=== PATIENT | male | born 1945 | race Caucasian/White ===

== ENCOUNTER 2016-11-14 10:30 | Inpatient (IN) | payer MEDICARE ==
[2016-11-14] VITALS (45 sets, daily range): BP systolic 113–163; BP diastolic 58–114; PULSE 90–121; RESP 24–64; TEMP 98.7; O2SAT 46–99; Ht 170.2 cm; Wt 129.4 kg
[~2016-11-14] VITALS: Ht 170.2 cm; Wt 129.4 kg
[~2016-11-14 10:30] MED LIST: ASPI81TA2 PO; BUME1TAB17 PO; CLON0.3T PO; GABA-336 PO; HYDR-4246 PO; HYDR25TA PO; ISOS30TA6 PO; METO-277 PO; MINO10TA2 PO; NITR0.4T PO; OMEP40CA52 PO; POTA-81 PO; SIMV20TA6 PO
--- NOTE | 2016-11-14 10:31 | NUR ---
PROVIDER/RT DR. MARTÍNEZ PRESENT ON ARRIVAL FOR EXAM. RT AT BEDSIDE ON ARRIVAL.
--- OUTSIDE RECORDS SUMMARY | 2016-11-14 10:33 | XMS REPORT | Referral Summary ---
Author Author [facility] [employer] Organization [facility] [employer] Address Unknown Phone Unavailable Care Team Providers Care Neurology Physician Assistant Name Role Phone Bryn Tavarez Primary Care Physician Unavailable Encounter [facility] [id number] Date(s): 10/21/16 - 10/21/16 [facility] [address], [place] [address] Discharge Diagnosis: CHF (congestive heart failure) Discharge Diagnosis: Morbid obesity Discharge Diagnosis: Hypertension Discharge Diagnosis: Obstructive sleep apnea Discharge Disposition: 01-Home or Self Care Attending Physician: Cb Lynch MD Admitting Physician: Cb Lynch MD Referring Physician: Víctor Farias MD Vital Signs Most recent to 1 oldest [Reference Range]: Peripheral Pulse 84 bpm Rate [60-100 bpm] (10/21/16 1:39 PM) Blood Pressure 142/76 mmHg [90-140/60-90 mmHg] *HI* (10/21/16 1:39 PM) SpO2 93 % (10/21/16 1:39 PM) Problem List Condition Effective Dates Status Health Status Informant Acute Active pain(Confirmed) Anginal Active patient pain(Confirmed) Coronary heart Active disease(Confirmed) Debility(Confirmed) Active At risk for Active injury(Confirmed)1 At risk of pressure Active sore(Confirmed) Stroke(Confirmed) Active patient Chronic Active headaches(Confirmed) CHF (congestive Active heart failure)(Confirmed) Heart Active patient disease(Confirmed) Hypertension(Confirm Active ed) Impaired skin Active integrity(Confirmed) 2 Morbid Active obesity(Confirmed) OR (myocardial Active patient infarction)(Confirme d) Obstructive sleep Active apnea(Confirmed) Situational Active depression(Confirmed ) 1Problem added automatically by system based on initiation of Risk for Injury Plan of Care 2Problem added automatically by system based on initiation of Impaired Skin Integrity Plan of Care Allergies, Adverse Reactions, Alerts No Known Medication Allergies Medications aspirin 81 mg, Oral, Daily, 0 Refill(s) Start Date: 03/06/15 Status: Ordered atorvastatin 40 mg oral tablet 40 mg 1 tabs, Oral, Daily, # 90 tabs, 4 Refill(s), Pharmacy: [facility], 1 tabs Oral Daily Start Date: 09/16/16 Status: Ordered Bumex 1 mg 1 tabs, Oral, Daily, 0 Refill(s) Start Date: 03/15/15 Status: Ordered cloNIDine 0.3 mg oral tablet 0.3 mg 1 tabs, Oral, BID, # 180 tabs, 0 Refill(s) Start Date: 07/15/16 Status: Ordered Home Oxygen (DME) DME Item O2 @ 2LPM for ambulation Portable Oxygen per patient choice Modality assessement Titrate SaO2 > 90%. DX J84.9 JEN: 99, See Instructions, # 1 Each , 0 Refill(s), Supply Start Date: 09/19/16 Status: Ordered hydrochlorothiazide 25 mg oral tablet 25 mg 1 tabs, Oral, Daily, 0 Refill(s) Start Date: 01/17/16 Status: Ordered isosorbide mononitrate 60 mg oral tablet, extended release 60 mg 1 tabs, Oral, qAM, 0 Refill(s) Start Date: 01/17/16 Status: Ordered losartan 50 mg oral tablet 50 mg 1 tabs, Oral, Daily, # 90 tabs, 3 Refill(s), Pharmacy: [facility], 1 tabs Oral Daily Start Date: 09/16/16 Status: Ordered metoprolol tartrate 50 mg oral tablet Oral, BID, 0 Refill(s) Start Date: 03/15/15 Status: Ordered minoxidil 10 mg oral tablet one half tab, Oral, Daily, # 30 tabs, 3 Refill(s), Pharmacy: [facility], one half tab Oral Daily Start Date: 09/16/16 Status: Ordered Miscellaneous DME DME Item Nocturnal oxygen at 2 LPM via nasal cannula. Overnight oximetry on 2 LPM. JEN: 99 DX: R09.02, See Instructions, # 1 Each, 0 Refill(s), Supply Start Date: 07/31/16 Status: Ordered Nitrostat 0.4 mg, SubLingual, q5min, as needed for chest pain, not to exceed 3 doses/15 min--if pain persists, seek medical attention, 0 Refill(s) Start Date: 03/06/15 Status: Ordered omeprazole 40 mg, Oral, Daily, 0 Refill(s) Start Date: 03/06/15 Status: Ordered potassium chloride 20 mEq oral tablet, extended release 20 mEq 1 tabs, Oral, Daily, 0 Refill(s) Start Date: 03/15/15 Status: Ordered traMADol 100 mg, Oral, QID, as needed for pain, 50-100 mg as needed, 0 Refill(s) Start Date: 03/06/15 Status: Ordered Results No data available for this section Immunizations Given and Recorded Vaccine Date Status Refusal Reason influenza virus vaccine, inactivated 08/12/16 Given influenza virus vaccine, live 06/08/13 Given influenza virus vaccine, live 06/05/12 Given influenza virus vaccine, live 05/15/12 Given influenza virus vaccine, live 05/01/11 Given influenza virus vaccine, live 06/14/10 Given pneumococcal 13-valent conjugate vaccine 08/12/16 Given Procedures Procedure Date Related Diagnosis Body Site Bypass Graft Coronary Artery1 03/10/15 [place] Vein (Left)2 03/10/15 1auto-populated from documented surgical case 2auto-populated from documented surgical case Social History Social History Type Response Smoking Status Never smoker Assessment and Plan Extracted from: Title: Office Visit Note Author: Cb Lynch MD Date: 10/21/16 Assessment/Plan 1.Obstructive sleep apnea Obstructive Sleep Apnea - -The pathophysiology of obstructive sleep apnea was discussed in detail. I explained that the treatment of choice for mild, moderate, and severe MAGY is the positive pressure device, and revealed about the untreated consequences. We also briefly discussed other treatment options including surgery, hypoglossal nerve stimulator, and dental appliances.The patient was advised to avoid driving and other hazardous activities if feeling tired, drowsy or otherwise impaired. - Current symptoms/Signs/PMH daytime sleepiness, snoring, witnessed apneas, BMI >35,Age >50, Neck size >40cm, male gender, hypertension, STOP BANG score: 8, hx HTN, CHF, CVA - We will obtain a SPLIT NIGHT sleep study. Study to begin on 2Liter Oxygen and wean and add oxygen per protocol to maintain oxygen >88%. Split if AHI >10, start with CPAP if central sleep apnea to switch to BIPAP ST with back up of 10 -If patient is Dx w/ MAGY patient would be interested PAP THERAPY Patient will benotified about results of sleep study via PHONE CALL 2.Hypertension The pathophysiology of HTN in relation to MAGY discussed in detail with patient. We also discussed increased risk of MAGY in regard to CVA, CHF,and OR. 3.Morbid obesity counseled on the importance of proper diet and routine exercise. A decrease in weight and BMI may lessen the severity of sleep apnea. If there is a 10% or more change in weight status, this may require PAP machine pressure adjustment. We discussed improving nutrition and making exercise plans. 4.CHF (congestive heart failure) discussed CHF and hx of CVA in regard to central sleep apnea risk.
--- OUTSIDE RECORDS SUMMARY | 2016-11-14 10:33 | XMS REPORT | Referral Summary ---
Author Author [facility] Organization [facility] Address Unknown Phone Unavailable Care Team Providers Care Manager Advanced Name Role Phone Bryn Tavarez Primary Care Physician Unavailable Encounter [facility] [id number] Date(s): 09/19/16 - 09/19/16 [facility] [address] [place], [place] [address] Discharge Diagnosis: Central sleep apnea Discharge Diagnosis: Coronary heart disease Discharge Diagnosis: CHF (congestive heart failure) Discharge Diagnosis: Hypertension Discharge Diagnosis: Hypersensitivity pneumonitis Discharge Diagnosis: Hypoxemia Discharge Disposition: -Home or Self Care Attending Physician: Víctor Farias MD Admitting Physician: Víctor aFrias MD Referring Physician: Erik Tavarez MD Vital Signs Most recent to 1 oldest [Reference Range]: Temperature Oral 36.8 degC [35.8-37.3 degC] (09/19/16 11:27 AM) Peripheral Pulse 78 bpm Rate [60-100 bpm] (09/19/16 11:27 AM) Respiratory Rate 16 br/min [14-20 br/min] (09/19/16 11:27 AM) Blood Pressure 122/82 mmHg [90-140/60-90 mmHg] (09/19/16 11:27 AM) SpO2 93 % (09/19/16 11:27 AM) Problem List Condition Effective Dates Status Health Status Informant Acute Active pain(Confirmed) Anginal Active patient pain(Confirmed) Coronary heart Active disease(Confirmed) Debility(Confirmed) Active At risk for Active injury(Confirmed)1 At risk of pressure Active sore(Confirmed) Central sleep Active apnea(Confirmed) Stroke(Confirmed) Active patient Chronic Active headaches(Confirmed) CHF (congestive Active patient heart failure)(Confirmed) Severe essential Active hypertension(Confirm ed) Heart Active patient disease(Confirmed) Hypertension(Confirm Active patient ed) Impaired skin Active integrity(Confirmed) 2 Morbid Active patient obesity(Confirmed) [place] (myocardial Active patient infarction)(Confirme d) Situational Active depression(Confirmed ) 1Problem added automatically [...] Daily, # 90 tabs, 4 Refill(s), Pharmacy: [facility], 1 tabs Oral Daily Start Date: 09/16/16 [...] Daily, # 90 tabs, 3 Refill(s), Pharmacy: [facility], 1 tabs Oral Daily Start Date: 09/16/16 Status: Ordered metoprolol tartrate 50 mg oral tablet Oral, BID, 0 Refill(s) Start Date: 03/15/15 Status: Ordered minoxidil 10 mg oral tablet one half tab, Oral, Daily, # 30 tabs, 3 Refill(s), Pharmacy: [facility], one half tab Oral Daily Start Date: [...] 0 Refill(s) Start Date: 03/15/15 Status: Ordered predniSONE 20 mg oral tablet 40 mg 2 tabs, Oral, Daily, X 30 days, # 60 tabs, 1 Refill(s), Pharmacy: [facility] [place], 2 tabs Oral Daily,x30 days Start Date: 07/31/16 Stop Date: 09/29/16 Status: Ordered traMADol 100 mg, Oral, QID, [...] Body Site Bypass Graft Coronary Artery1 03/10/15 [place] Vein (Left)2 03/10/15 1auto-populated from documented surgical case 2auto-populated from documented surgical case Social History Social History Type Response Smoking Status Never smoker Assessment and Plan Extracted from: Title: Office Visit Note Author: Víctor Farias MD Date: 09/19/16 Assessment/Plan 1.Coronary heart disease 2.Central sleep apnea 3.Hypertension 4.CHF (congestive heart failure) 5.Hypersensitivity pneumonitis 6.Hypoxemia I've recommended supplemental oxygen with activity at this time. He does have evidence of significant desaturation with activity presently. He also reports that when he has used oxygenhe feels less short of breathand he has fewer problems with chest pain. I also discussed with him at lengthhis sleep apnea. I feel this plays a major rolein his shortness of breath and fatigue. Without adequate treatmentof his sleep apnea he will continue to have significant problems with exertional dyspnea and fatigue. He is now willing to undergoevaluation by sleep medicine. An appointment will be scheduledas soon as possible.
--- OUTSIDE RECORDS SUMMARY | 2016-11-14 10:33 | XMS REPORT | CCD ---
Author [facility] Organization Unknown Address [address], [place] [id number] Phone 0 Care Team Providers Care Micrographics Services Supervisor Name Role Phone Lucero [place] Attending Physician 0 Vital Signs Unknown or Not Available. Allergies Unknown or Not Available. Procedures Unknown or Not Available. History of Immunizations Immunization Code Date influenza, split (incl. purified surface antigen) 15 08/06/2005 Problems Unknown or Not Available. Results BASIC METABOLIC - Collect Date/Time: 03/22/2015 12:35 Test Name Code Test Result Test Units Test Ref Range GLUCOSE 97 mg/dL L=70 H=110 BUN 19 mg/dL L=7 H=18 CREATININE 1.10 mg/ dL L=0.60 H=1.30 AGE 70 YEARS GFR 70.5 SODIUM 135 mmol/L L=136 H=145 POTASSIUM 4.2 mmol/ L L=3.5 H=5.1 CHLORIDE 98 mmol/L L=98 H=107 CO2 27 mmol/L L=21 H=32 CALCIUM 9.2 mg/dL L=8.5 H=10.1 Active Medications Unknown or Not Available. Medications Administered During Visit Unknown or Not Available. Encounters Encounter Diagnosis Diagnosis Code Start Date HYPERTENSION NOS 4019 03/22/2015 Social History Smoking Status Code Start Date End Date Unknown if ever smoked [id number] Patient Decision Aids Unknown or Not Available. Discharge Instructions [facility] on 03/22/2015 with a principal diagnosis of HYPERTENSION NOS. You were discharged from [facility] on 03/31/2015. Should you have any questions prior to discharge, please contact a member of your healthcare team. If you have left the hospital and have any questions, please contact your primary care physician. Chief Complaint and Reason For Visit Unknown or Not Available. Function Status Unknown or Not Available. Plan of Care Unknown or Not Available. Referral/Transition of Care Unknown or Not Available.
--- OUTSIDE RECORDS SUMMARY | 2016-11-14 10:33 | XMS REPORT | Referral Summary ---
Author Author [facility] Organization [facility] Address Unknown Phone Unavailable Care Team Providers Care Television Station Manager Name Role Phone Erik Tavarez Primary Care Physician Unavailable Encounter [facility] [id number] Date(s): 06/14/16 - 06/14/16 [facility] [address] [place], [place] [address] Discharge Diagnosis: SOB (shortness of breath) Discharge Disposition: 01-Home or Self Care Attending Physician: Víctor Farias MD Admitting Physician: Víctor Farias MD Vital Signs No data available for this section Problem List Condition Effective Dates Status Health Status Informant Acute Active pain(Confirmed) Anginal Active patient pain(Confirmed) At risk for Active injury(Confirmed)1 At risk of pressure Active sore(Confirmed) Stroke(Confirmed) Active patient CHF (congestive Active patient heart failure)(Confirmed) Heart Active patient disease(Confirmed) Hypertension(Confirm Active patient ed) Impaired skin Active integrity(Confirmed) 2 Morbid Active patient obesity(Confirmed) [place] (myocardial Active patient infarction)(Confirme d) 1Problem added automatically by system based on initiation of Risk for Injury Plan of Care 2Problem added automatically by system based on initiation of Impaired Skin Integrity Plan of Care Allergies, Adverse Reactions, Alerts No Known Medication Allergies Medications Advil 400 mg, Oral, q6hr, as needed for arthritis, 0 Refill(s) Start Date: 05/22/16 Status: Ordered aspirin 81 mg, Oral, Daily, 0 Refill(s) Start Date: 03/06/15 Status: Ordered Bumex 1 mg 1 tabs, Oral, Daily, 0 Refill(s) Start Date: 03/15/15 Status: Ordered cloNIDine 0.1 mg oral tablet 0.2 mg 2 tabs, Oral, BID, 0 Refill(s) Start Date: 03/15/15 Status: Ordered hydrochlorothiazide 25 mg oral tablet 25 mg 1 tabs, Oral, Daily, 0 Refill(s) Start Date: 01/17/16 Status: Ordered isosorbide mononitrate 60 mg oral tablet, extended release 60 mg 1 tabs, Oral, qAM, 0 Refill(s) Start Date: 01/17/16 Status: Ordered metoprolol tartrate 50 mg oral tablet Oral, BID, 0 Refill(s) Start Date: 03/15/15 Status: Ordered minoxidil 10 mg oral tablet 10 mg 1 tabs, Oral, Daily, # 30 tabs, 0 Refill(s) Start Date: 01/17/16 Status: Ordered Nitrostat 0.4 mg, SubLingual, q5min, as needed for chest pain, not to exceed 3 doses/15 min--if pain persists, seek medical attention, 0 Refill(s) Start Date: 03/06/15 Status: Ordered omeprazole 40 mg, Oral, Daily, 0 Refill(s) Start Date: 03/06/15 Status: Ordered potassium chloride 20 mEq oral tablet, extended release 20 mEq 1 tabs, Oral, Daily, 0 Refill(s) Start Date: 03/15/15 Status: Ordered simvastatin 20 mg oral tablet 20 mg 1 tabs, Oral, Bedtime (once a day), # 30 tabs, 0 Refill(s) Start Date: 01/17/16 Status: Ordered traMADol 100 mg, Oral, QID, as needed for pain, 50-100 mg as needed, 0 Refill(s) Start Date: 03/06/15 Status: Ordered Results No data available for this section Immunizations Vaccine Date Refusal Reason influenza virus vaccine, live 06/08/13 influenza virus vaccine, live 06/05/12 influenza virus vaccine, live 05/15/12 influenza virus vaccine, live 05/01/11 influenza virus vaccine, live 06/14/10 Procedures Procedure Date Related Diagnosis Body Site Bypass Graft Coronary Artery1 03/10/15 [place] Vein (Left)2 03/10/15 1auto-populated from documented surgical case 2auto-populated from documented surgical case Social History Social History Type Response Smoking Status Never smoker Assessment and Plan No data available for this section
--- OUTSIDE RECORDS SUMMARY | 2016-11-14 10:33 | XMS REPORT | Referral Summary ---
Author Author [facility] Organization [facility] Address Unknown Phone Unavailable Care Team Providers Care Traveling Auditor Name Role Phone Erik Tavarez Primary Care Physician Unavailable [facility]counter [facility] [id number] Date(s): 08/12/16 - 08/12/16 [facility] [address] [place], [place] [address] Discharge Diagnosis: Heart disease Discharge Diagnosis: Morbid obesity Discharge Diagnosis: Nocturnal hypoxemia Discharge Diagnosis: Hypersensitivity pneumonitis Discharge Diagnosis: CHF (congestive heart failure) Discharge Disposition: 01-Home or Self Care Attending Physician: Víctor Farias MD Admitting Physician: Víctor Farias MD Vital Signs Most recent to 1 oldest [Reference Range]: Peripheral Pulse 68 bpm Rate [60-100 bpm] (08/12/16 10:17 AM) Respiratory Rate 18 br/min [14-20 br/min] (08/12/16 10:17 AM) Blood Pressure 172/100 mmHg [90-140/60-90 mmHg] *HI* (08/12/16 10:17 AM) SpO2 96 % (08/12/16 10:17 AM) Problem List Condition Effective Dates Status [...] 0 Refill(s) Start Date: 07/15/16 Status: Ordered hydrochlorothiazide 25 mg oral tablet [...] 0 Refill(s) Start Date: 01/17/16 Status: Ordered Miscellaneous DME DME Item Nocturnal [...] 60 tabs, 1 Refill(s), Pharmacy: [facility] [place], 2 tabs Oral Daily,x30 days Start Date: 07/31/16 Stop Date: 09/29/16 Status: Ordered simvastatin 20 mg oral tablet [...] Body Site Bypass Graft Coronary Artery1 03/10/15 [place] Vein (Left)2 03/10/15 1auto-populated from documented surgical case 2auto-populated from documented surgical case Social History Social History Type Response Smoking Status Never smoker Assessment and Plan Extracted from: Title: Office Visit Note Author: Víctor Farias MD Date: 08/12/16 Assessment/Plan 1.Heart disease 2.CHF (congestive heart failure) 3.Hypersensitivity pneumonitis The patient has gotten rid of his chickens. We will begin to taper prednisone. He's to take 40 mg daily through August, 30 mg daily in September , and dropped to 20 mg daily in October, 4.Morbid obesity 5.Nocturnal hypoxemia I've recommended patient continue supplemental oxygen at night. A repeat overnight oximetry on supplemental oxygenis to be done this week. Need for vaccination The patient received both a flu shot and Prevnar 13 today. follow-up evaluation is planned pulmonary medicine clinic in 3 months or sooner if need be.
--- OUTSIDE RECORDS SUMMARY | 2016-11-14 10:33 | XMS REPORT | Continuity of Care Document ---
Author Author [facility] Address Unknown Phone Unavailable Care Team Providers Care Ornamental Ironworker Name Role Phone Sammy De Anda PP Unavailable Payers Payer name Insurance type Covered democrat ID Authorization(s) Unknown Problems Condition Effective Dates (start - stop) Clinical Status Pre-operative examination, unspecified - *Acute Pain in joint involving ankle and foot - *Acute Hypertension, Unspecified - *Chronic Chronic ischemic heart disease, unspecified - *Chronic Abnormal weight gain - *Acute OTHER ABNORMAL GLUCOSE - *Acute Pain in joint involving shoulder region - *Acute Cough - *Acute Health examination of defined subpopulations - *Routine Health examination of defined subpopulations - *Routine Right foot pain - *Acute Hypopotassemia - *Chronic Pain in or around eye - *Acute Esophageal reflux - *Chronic Headache - *Acute Routine general medical examination at a health care facility - *Routine Osteoarthrosis, unspecified whether generalized or localized, involving ankle and foot - *Acute Hypertension, Unspecified - *Chronic Chronic ischemic heart disease, unspecified - Chronic Benign essential hypertension - *Chronic Hypopotassemia - *Chronic Anxiety state, unspecified - *Acute Hypoxemia - *Acute - Shortness of breath - *Acute Benign essential hypertension - *Chronic Unspecified chest pain - *Acute NEED FOR PROPHYLACTIC VACCINATION AND INOCULATION, INFLUENZA - * Acute Family History Family Member Diagnosis Age At Onset Status Unknown Social History Social History Element Description Quantity Unknown Allergies, Adverse Reactions, Alerts Substance Reaction Severity Status LATEX Rash Unknown Medications Medication Instructions Dosage Effective Dates (start - stop) Status Aspir-81 81 mg tablet,delayed release take 1 tablet (81MG) by oral route every day 81 MG - Active tramadol 50 mg tablet take 1 tablet (50MG) by oral route every 6 hours as needed 50 MG - Active apply by Topical route 4 to 5 times every day - Active hydrochlorothiazide 50 mg tablet take 1 tablet (50MG) by ORAL route every day 50 MG - Active clonidine 0.3 mg tablet take 1 tablet BID - Active nitroglycerin 0.[address] 1 tablet (0.4MG) by Sublingual route at the 1st sign of attack; may repeat every 5 min until relief; if pain persists after 3 tablets in 15 min, prompt medical attention is recommended 0.4 MG - Active Revatio 20 mg tablet take 1- 3 tabs po prn - Active Zocor 20 mg tablet take 1 tablet (20MG) by ORAL route every day in the evening 20 MG - Active Toprol XL 50 mg tablet,extended release take 1 tablet (50MG) by oral route every day 50 MG - Active minoxidil 10 mg tablet take 1.5 tablets q d 10 MG - Active Nexium 40 mg capsule,delayed release take 1 capsule daily - Active Immunizations Vaccine Date Status Comments Fluzone HD 0.5 completed flu (split) (3 yrs or older) completed Flu (split) (3 yrs or older) completed Flu (split) (3 yrs or older) completed flu (split) (3 yrs or older) completed - Note: 65 and over Flu vaccine Results Test Name Date and Time Measure Units Reference Range Abnormal Flag Comments Unknown Vital Signs Date / Time: Height Weight Pulse Rate Blood Pressure Temperature /09:17:00 274.00 lbs 76 /min 132/80 mm[Hg] Procedures Procedure Date Unknown Encounters Encounter Location Date Patient Visit [facility] [place] Patient Visit [facility] [place] Patient Visit [facility] [place] Patient Visit [facility] [place] Patient Visit [facility] [place] Patient Visit [facility] [place] Patient Visit [facility] [place] Patient Visit [facility] [place] Patient Visit [facility] [place] Patient Visit [facility] [place] Patient Visit [facility] [place] Patient Visit [facility] [place] Patient Visit [facility] [place] Patient [facility] [place] Patient Visit [facility] [place] Patient Visit [facility] [place] Patient Visit [facility] [place] Patient [facility] [place] Patient Visit [facility] [place] Patient Visit [facility] [place] Patient Visit [facility] [place] Patient Visit [facility] [place] Advance Directives Directive Effective Date Unknown
--- OUTSIDE RECORDS SUMMARY | 2016-11-14 10:33 | XMS REPORT | Referral Summary ---
Author Author [facility] Organization [facility] Address Unknown Phone Unavailable Encounter [facility] [id number] Date(s): 03/06/15 - 03/15/15 [facility] [address] [place] [address] Discharge Diagnosis: Unstable angina Discharge Diagnosis: S/P CABG x 3 Final: CORONARY ATHEROSCLEROSIS OF [place] CORONARY ARTERY Final: INTERMEDIATE CORONARY SYNDROME Final: Body Mass Index 40.0-44.9, Adult Final: PULMONARY COLLAPSE Final: ACUTE POSTHEMORRHAGIC ANEMIA Final: RETENTION OF URINE, UNSPECIFIED Final: OBESITY, UNSPECIFIED Final: CONGESTIVE HEART FAILURE, UNSPECIFIED Final: ATRIAL FIBRILLATION Final: OTHER LATE EFFECTS OF CEREBROVASCULAR DISEASE Final: OTHER AND UNSPECIFIED HYPERLIPIDEMIA Final: UNSPECIFIED ESSENTIAL HYPERTENSION Final: Other chronic pain Final: BACKACHE, UNSPECIFIED Final: OLD MYOCARDIAL INFARCTION Final: KNEE JOINT REPLACED BY OTHER MEANS Final: PERCUTANEOUS TRANSLUMINAL CORONARY ANGIOPLASTY, POSTSURGICAL STATUS Discharge Disposition: -Home with Home Health Care Attending Physician: Marvin Castillo MD Admitting Physician: Marvin Castillo MD Vital Signs Most recent to 1 oldest [Reference Range]: Temperature Oral 36.6 degC [35.8-37.3 degC] (03/15/15 12:59 PM) Temperature Temporal 36.2 degC Artery [36.3-37.8 *LOW* degC] (03/14/15 8:00 PM) Peripheral Pulse 79 bpm Rate [60-100 bpm] (03/15/15 12:59 PM) Peripheral Pulse 122 bpm Rate with Activity (03/14/15 1:29 PM) Heart Rate Monitored 73 bpm [60-100 bpm] (03/15/15 12:56 PM) Respiratory Rate 20 br/min [14-20 br/min] (03/15/15 12:59 PM) Blood Pressure 90/58 mmHg [90-140/60-90 mmHg] (03/15/15 12:59 PM) Systolic Blood 122 mmHg Pressure with (03/14/15 1:29 PM) Activity Diastolic Blood 86 mmHg Pressure with (03/14/15 1:29 PM) Activity Mean Arterial 102 mmHg Pressure, Cuff (03/14/15 8:00 PM) Blood Pressure 156/81 mmHg Invasive *HI* [90-140/60-90 mmHg] (03/11/15 3:00 PM) Mean Arterial 102 mmHg Pressure, Invasive (03/11/15 3:00 PM) SpO2 96 % (03/15/15 12:59 PM) Problem List Condition Effective Dates Status Health Status Informant Acute Active pain(Confirmed) Anginal Active patient pain(Confirmed) At risk for Active injury(Confirmed)1 At risk of pressure Active sore(Confirmed) Stroke(Confirmed) Active patient CHF (congestive Active patient heart failure)(Confirmed) Heart Active patient disease(Confirmed) Hypertension(Confirm Active patient ed) Impaired skin Active integrity(Confirmed) 2 Morbid Active patient obesity(Confirmed) OR (myocardial Active patient infarction)(Confirme d) 1Problem added automatically by system based on initiation of Risk for Injury Plan of Care 2Problem added automatically by system based on initiation of Impaired Skin Integrity Plan of Care Allergies, Adverse Reactions, Alerts No Known Medication Allergies Medications acetaminophen 325 mg oral tablet 650 mg 2 tabs, Oral, q4hr, Pain Mild (1-3), 0 Refill(s) Start Date: 03/15/15 Status: Ordered amiodarone 200 mg oral tablet 200 mg 1 tabs, Oral, BID, 0 Refill(s) Start Date: 03/15/15 Status: Ordered aspirin 81 mg, Oral, Daily, 0 Refill(s) Start Date: 03/06/15 Status: Ordered atorvastatin 40 mg oral tablet 40 mg 1 tabs, Oral, Bedtime (once a day), 0 Refill(s) Start Date: 03/15/15 Status: Ordered Bumex 1 mg 1 tabs, Oral, Daily, 0 Refill(s) Start Date: 03/15/15 Status: Ordered cloNIDine 0.1 mg oral tablet 0.2 mg 2 tabs, Oral, BID, 0 Refill(s) Start Date: 03/15/15 Status: Ordered ibuprofen 800 mg oral tablet 800 mg 1 tabs, Oral, TID, as needed for pain, 1 Refill(s) Start Date: 06/13/14 Status: Ordered lisinopril 10 mg oral tablet 10 mg 1 tabs, Oral, Daily, 0 Refill(s) Start Date: 03/15/15 Status: Ordered metoprolol tartrate 50 mg oral tablet Oral, BID, 0 Refill(s) Start Date: 03/15/15 Status: Ordered Nitrostat 0.4 mg, SubLingual, q5min, as needed for chest pain, not to exceed 3 doses/15 min--if pain persists, seek medical attention, 0 Refill(s) Start Date: 03/06/15 Status: Ordered omeprazole 40 mg, Oral, Daily, 0 Refill(s) Start Date: 03/06/15 Status: Ordered oxyCODONE-acetaminophen 10 mg-325 mg oral tablet 1-2 tabs, Oral, q6hr, Pain Moderate (4-6), 0 Refill(s) Start Date: 03/15/15 Status: Ordered potassium chloride 20 mEq oral tablet, extended release 20 mEq 1 tabs, Oral, Daily, 0 Refill(s) Start Date: 03/15/15 Status: Ordered tamsulosin 0.4 mg oral capsule 0.4 mg 1 caps, Oral, Daily, 0 Refill(s) Start Date: 03/15/15 Status: Ordered traMADol 100 mg, Oral, QID, as needed for pain, 50-100 mg as needed, 0 Refill(s) Start Date: 03/06/15 Status: Ordered Results Blood Gases Most recent to 1 oldest [Reference Range]: pH [7.35-7.45] 7.35 (03/11/15 3:41 AM) PCO2 Arterial POC 43 mmHg [35-45 mmHg] (03/10/15 3:13 PM) pCO2 Art [35-45 45 mmHg mmHg] (03/11/15 3:41 AM) CO2 Totl Art [23-27 27 mEq/L mEq/L] (03/10/15 3:13 PM) Bicarbonate [22-26 24 mEq/L mEq/L] (03/11/15 3:41 AM) Bicarbonate Arterial 26 mEq/L POC [22-26 mEq/L] (03/10/15 3:13 PM) Base Excess Arterial 1 POC [0-2] (03/10/15 3:13 PM) Base Excess Art -2 [0-2] *LOW* (03/11/15 3:41 AM) O2 Sat Art 92.4 % [90.0-97.0 %] (03/11/15 3:41 AM) pO2 Art [80-100 70 mmHg mmHg] *LOW* (03/11/15 3:41 AM) O2 Saturation 99.0 % Arterial POC *HI* [90.0-97.0 %] (03/10/15 3:13 PM) pH Arterial POC 7.39 [7.35-7.45] (03/10/15 3:13 PM) PO2 Arterial POC 154 mmHg [80-100 mmHg] *HI* (03/10/15 3:13 PM) LPM Art 6.0 L/min (03/11/15 3:41 AM) O2 Panel Nasal Cannula (03/11/15 3:41 AM) Vent Mode AC (03/10/15 5:20 PM) Set Vt 600 mL (03/10/15 5:20 PM) Set Rate 12 br/min (03/10/15 5:20 PM) FiO2 Art [0-100] 50 (03/10/15 11:50 PM) PEEP 5.0 (03/10/15 11:50 PM) Inspiratory Time Art 0.90 (03/10/15 5:20 PM) Tubing Compensation 100 % (03/10/15 11:50 PM) Total Rate 14 br/min (03/10/15 11:50 PM) Spon Vt 665 mL (03/10/15 11:50 PM) Spec Site A-Line (03/11/15 3:41 AM) pH Venous POC 7.38 [7.32-7.42] (03/10/15 4:12 PM) PCO2 Venous POC 43 mmHg [41-51 mmHg] (03/10/15 4:12 PM) PO2 Venous POC 40 mmHg [80-100 mmHg] *LLOW* (03/10/15 4:12 PM) Total CO2 Venous POC 27 mEq/L [25-29 mEq/L] (03/10/15 4:12 PM) Bicarbonate Venous 25 mEq/L POC [24-28 mEq/L] (03/10/15 4:12 PM) Base Excess Venous 0 POC [0-4] (03/10/15 4:12 PM) O2 Saturation Venous 74.0 % POC [90.0-97.0 %] *LOW* (03/10/15 4:12 PM) Hematology Most recent to 1 oldest [Reference Range]: WBC [4.8-10.8 6.1 10*3/uL 10*3/uL] (03/15/15 5:19 AM) RBC [4.60-6.20 3.32 10*6/uL 10*6/uL] *LOW* (03/15/15 5:19 AM) Hgb [14.0-18.0 10.1 gm/dL gm/dL] *LOW* (03/15/15 5:19 AM) Hct [42.0-52.0 %] 30.7 % *LOW* (03/15/15 5:19 AM) MCV [82.0-99.0 fL] 92.5 fL (03/15/15 5:19 AM) MCH [27.0-32.0 pg] 30.4 pg (03/15/15 5:19 AM) MCHC [32.0-36.0 32.9 gm/dL gm/dL] (03/15/15 5:19 AM) RDW [11.5-14.5 %] 14.2 % (03/15/15 5:19 AM) Platelet [150-400 192 10*3/uL 10*3/uL] (03/15/15 5:19 AM) MPV [9.4-12.3 fL] 11.3 fL (03/15/15 5:19 AM) Immature 0.4 % Granulocytes (03/11/15 5:02 AM) [0.0-1.0 %] Neutrophils [51-75 90 % %] *HI* (03/11/15 5:02 AM) Lymphocytes [20-46 4 % %] *LOW* (03/11/15 5:02 AM) Monocytes [4-11 %] 6 % (03/11/15 5:02 AM) Eosinophils [0-4 %] 0 % (03/11/15 5:02 AM) Basophils [0-2 %] 0 % (03/11/15 5:02 AM) Neutro Absolute 9.77 10*3 [1.90-7.00 10*3] *HI* (03/11/15 5:02 AM) Lymph Absolute 0.48 10*3 [0.80-3.30 10*3] *LOW* (03/11/15 5:02 AM) Towns Absolute 0.62 10*3 [0.30-1.00 10*3] (03/11/15 5:02 AM) Eos Absolute 0.00 10*3 [0.00-0.50 10*3] (03/11/15 5:02 AM) Baso Absolute 0.00 10*3 [0.00-0.20 10*3] (03/11/15 5:02 AM) Nucleated RBC 0.0 /100 WBC Automated [0 /100 (03/11/15 5:02 AM) WBC] Coagulation Most recent to 1 oldest [Reference Range]: INR [0.9-1.2] 1.3 *HI* (03/10/15 3:40 PM) PTT [25.0-35.0] 32.6 (03/10/15 3:40 PM) Fibrinogen Lvl 314 mg/dL [187-520 mg/dL] (03/10/15 3:40 PM) Chemistry Most recent to 1 oldest [Reference Range]: Sodium Lvl [136-144 136 mEq/L mEq/L] (03/15/15 5:19 AM) Potassium Lvl 3.5 mEq/L [3.6-5.1 mEq/L] *LOW* (03/15/15:19 AM) Chloride [99-109 99 mEq/L mEq/L] (03/15/15 5:19 AM) CO2 [22-32 mEq/L] 30 mEq/L (03/15/15 5:19 AM) AGAP [3-20] 7 (03/15/15 5:19 AM) BUN [4-20 mg/dL] 15 mg/dL (03/15/15 5:19 AM) Glucose Lvl [70-100 111 mg/dL mg/dL] *HI* (03/15/15 5:19 AM) Creatinine Lvl 0.82 mg/dL [0.64-1.27 mg/dL] (03/15/15 5:19 AM) eGFR [>60] >60 1 (03/15/15 5:19 AM) Calcium Lvl 9.1 mg/dL [8.6-10.0 mg/dL] (03/15/15 5:19 AM) Albumin Lvl [3.5-4.8 4.2 gm/dL gm/dL] (03/06/15 4:54 PM) Total Protein 6.9 gm/dL [6.1-7.9 gm/dL] (03/06/15 4:54 PM) Globulin [1.9-4.3 2.7 gm/dL gm/dL] (03/06/15 4:54 PM) ALT [17-63 U/L] 20 U/L (03/06/15 4:54 PM) AST [15-41 U/L] 34 U/L (03/06/15 4:54 PM) Alk Phos [26-104 57 U/L U/L] (03/06/15 4:54 PM) Bili Total [0.2-1.2 1.0 mg/dL 2 mg/dL] (03/06/15 4:54 PM) Magnesium Lvl 2.0 mg/dL [1.8-2.5 mg/dL] (03/15/15 5:19 AM) Calcium Ionized 1.30 mmol/L [1.19-1.41 mmol/L] (03/12/15 3:53 AM) Troponin [<0.06 <0.05 ng/mL ng/mL] (03/07/15 9:53 PM) Prealbumin [18-38 24 mg/dL mg/dL] (03/09/15 11:47 AM) Sodium Arterial NPT 138 mEq/L [136-144 mEq/L] (03/10/15 3:13 PM) Potassium Arterial 3.8 mEq/L 3 NPT [3.6-5.1 mEq/L] (03/10/15 3:13 PM) Calcium Ionized 1.21 mmol/L Arterial NPT (03/10/15 3:13 PM) [1.19-1.41 mmol/L] HCT Arterial NPT 26.0 % (03/10/15 3:13 PM) HGB Arterial NPT 8.8 gm/dL (03/10/15 3:13 PM) Arterial Glucose NPT 140 mg/dL [70-100 mg/dL] *HI* (03/10/15 3:13 PM) Sodium Venous NPT 141 mEq/L [136-144 mEq/L] (03/10/15 4:12 PM) Potassium Venous NPT 3.3 mEq/L 4 [3.6-5.1 mEq/L] *LOW* (03/10/15 4:12 PM) Calcium Ionized 1.36 mmol/L Venous NPT (03/10/15 4:12 PM) [1.19-1.41 mmol/L] Glucose Venous NPT 101 mg/dL [70-100 mg/dL] *HI* (03/10/15 4:12 PM) HCT Venous NPT 28.0 % (03/10/15 4:12 PM) HGB Van NPT 9.5 gm/dL (03/10/15 4:12 PM) Activated Clotting 118 Time NPT [100-146] (03/10/15 3:44 PM) Blood Glucose, 92 mg/dL Capillary [70-100 (03/13/15 12:40 PM) mg/dL] Hgb A1c [4.1-5.6 %] 5.7 % *HI* (03/09/15 11:47 AM) eAvg Glucose 116.9 mg/dL (03/09/15 11:24 AM) 1Result Comment: Multiply eGFR results by 1.21 for race. 2Result Comment: Naproxen, specifically the metabolite O-desmethylnaproxen, may cause spurious elevation in Total Bilirubin levels. 3Result Comment: This test was performed on a whole blood specimen. The presence or absence of hemolysis cannot be assessed. Hemolysis can falsely elevate potassium levels. Normals are for venous specimens only. 4Result Comment: This test was performed on a whole blood specimen. The presence or absence of hemolysis cannot be assessed. Hemolysis can falsely elevate potassium levels. Normals are for venous specimens only. Urinalysis Most recent to 1 oldest [Reference Range]: UA Color Lt Yellow (03/09/15 11:50 PM) UA Appear Clear (03/09/15 11:50 PM) UA pH [5.0-8.0] 7.0 (03/09/15 11:50 PM) UA Leuk Est Negative [Negative] (03/09/15 11:50 PM) UA Nitrite Negative [Negative] (03/09/15 11:50 PM) UA Protein Negative [Negative] (03/09/15 11:50 PM) UA Glucose Negative [Negative] (03/09/15 11:50 PM) UA Ketones Negative [Negative] (03/09/15 11:50 PM) UA Urobilinogen Negative [<1.0] (03/09/15 11:50 PM) UA Bili [Negative] Negative (03/09/15 11:50 PM) UA Blood [Negative] Negative (03/09/15 11:50 PM) UA Spec Grav 1.005 [1.003-1.030] (03/09/15 11:50 PM) Type Clean Catch (03/09/15 11:50 PM) Blood Bank Results Most recent to 1 oldest [Reference Range]: ABO/Rh O POS (03/09/15 11:47 AM) Antibody Screen Tube NEG (03/09/15 11:47 AM) Microbiology Reports TEST: MRSA Screen Culture STATUS: Auth (Verified) BODY SITE: SOURCE: Nares COLLECTED DATE/TIME: 03/09/15 3:19 PM MRSA Screen Culture No Methicillin Resistant Staphylococcus aureus isolated. Immunizations Vaccine Date Refusal Reason influenza virus vaccine, live 06/08/13 influenza virus vaccine, live 06/05/12 influenza virus vaccine, live 05/15/12 influenza virus vaccine, live 05/01/11 influenza virus vaccine, live 06/14/10 Procedures Procedure Date Related Diagnosis Body Site Bypass Graft Coronary Artery1 03/10/15 [place] Vein (Left)2 03/10/15 1auto-populated from documented surgical case 2auto-populated from documented surgical case Social History Social History Type Response Smoking Status Never smoker Assessment and Plan No data available for this section
--- OUTSIDE RECORDS SUMMARY | 2016-11-14 10:33 | XMS REPORT | CCD ---
Author Author [facility] Organization Unknown Address [address], [place] [id number] Phone 0 Care Team Providers Care Genetics Physician Name Role Phone Bryn NICHOLAS Attending Physician [phone] Vital Signs Unknown or Not Available. Allergies Unknown or Not Available. Procedures Unknown or Not Available. History of Immunizations Immunization Code Date influenza, split (incl. purified surface antigen) 15 08/06/2005 Problems Unknown or Not Available. Results CBC W/ DIFF - Collect Date/Time: 04/13/2015 12:30 Test Name Code Test Result Test Units Test Ref Range WBC 6.8 x10^3 L=4.8 H=10.8 RBC 3.77 x10^6 L=4.70 H=6.10 HEMOGLOBIN 11.6 g/ dL L=14.0 H=18.0 HEMATOCRIT 34.8 % L=42.0 H=52.0 MCV 92 fL L=80 H=100 MCH 30.9 pg L=27.0 H=33.0 MCHC 33.4 g/dL L=33.0 H=37.0 RDW 15.6 % L=11.5 H=14.5 PLATELETS 177 x10^3 L=150 H=450 MPV 9.1 fL L=7.8 H=11.0 NEUTROPHILS 65.4 % L=40.0 H=80.0 LYMPHOCYTES 23.8 % L=20.0 H=45.0 MONOCYTES 7.1 % L=0.0 H=10.0 EOSINOPHILS 3.6 % L=0.0 H=5.0 BASOPHILS 0.1 % L=0.0 H=2.0 REFLEX MAN DIFF NO N /A Active Medications Unknown or Not Available. Medications Administered During Visit Unknown or Not Available. Encounters Encounter Diagnosis Diagnosis Code Start Date ANEMIA NOS 2859 04/13/2015 Social History Smoking Status Code Start Date End Date Unknown if ever smoked [id number] Patient Decision Aids Unknown or Not Available. Discharge Instructions You were admitted to [facility] on 04/13/2015 with a principal diagnosis of ANEMIA NOS. Should you have any questions prior to [...]
--- OUTSIDE RECORDS SUMMARY | 2016-11-14 10:33 | XMS REPORT | Referral Summary ---
Author Author [facility] Organization [facility] Address Unknown Phone Unavailable Care Team Providers Care Office Administration Name Role Phone Erik Tavarez Primary Care Physician Unavailable Encounter [facility] [id number] Date(s): 03/20/16 - 03/20/16 [facility] [address] [place], [place] [address] Discharge Diagnosis: Dyspnea Discharge Diagnosis: Cough Discharge Diagnosis: ILD (interstitial lung disease) Discharge Diagnosis: CAD (coronary artery disease) Discharge Disposition: 01-Home or Self Care Attending Physician: Víctor Farias MD Admitting Physician: Víctor Farias MD Vital Signs Most recent to 1 oldest [Reference Range]: Peripheral Pulse 72 bpm Rate [60-100 bpm] (03/20/16 1:13 PM) Respiratory Rate 20 br/min [14-20 br/min] (03/20/16 1:13 PM) Blood Pressure 140/90 mmHg [90-140/60-90 mmHg] (03/20/16 1:13 PM) SpO2 95 % (03/20/16 1:13 PM) Problem List Condition Effective Dates Status Health Status Informant Acute Active pain(Confirmed) Anginal Active patient pain(Confirmed) At risk for Active injury(Confirmed)1 At risk of pressure Active sore(Confirmed) Stroke(Confirmed) Active patient CHF (congestive Active patient heart failure)(Confirmed) Heart Active patient disease(Confirmed) Hypertension(Confirm Active patient ed) Impaired skin Active integrity(Confirmed) 2 Morbid Active patient obesity(Confirmed) [place] (myocardial Active patient infarction)(Confirme d) 1Problem added [...] Status: Ordered cloNIDine 0.1 mg oral tablet 0.3 mg 3 tabs, Oral, BID, 0 Refill(s) Start Date: [...] Status: Ordered minoxidil 10 mg oral tablet 15 mg 1.5 tabs, Oral, Daily, # 30 tabs, 0 [...] tablet 40 mg 2 tabs, Oral, Daily, # 60 tabs, 2 Refill(s), Pharmacy: [facility], 2 tabs Oral Daily Start Date: 03/20/16 Stop Date: 03/20/16 Status: Ordered simvastatin 20 mg oral tablet [...] Body Site Bypass Graft Coronary Artery1 03/10/15 [place] Vein (Left)2 03/10/15 1auto-populated from documented surgical case 2auto-populated from documented surgical case Social History Social History Type Response Smoking Status Never smoker Assessment and Plan Extracted from: Title: Office Visit Note Author: Víctor Farias MD Date: 03/20/16 Assessment/Plan 1.ILD (interstitial lung disease) 2.CAD (coronary artery disease) 3.Dyspnea 4.Cough Orders: predniSONE, 40 mg 2 tabs, Oral, Daily, # 60 tabs, 2 Refill(s), Pharmacy: [facility], 2 tabs Oral Daily I discussedprobable diagnosis of hypersensitivity pneumonitis at length with the patient and his . I suspectit is a result of the exposure tobird antigens. I have recommended that theyget rid of boththe chickensand the cockatiel. In the meantimeI placed him on prednisone 40 mg daily. He' s to call us in the next 2 weeks to let usknow how he's doing.
--- OUTSIDE RECORDS SUMMARY | 2016-11-14 10:34 | XMS REPORT | Referral Summary ---
Author Author [facility] Organization [facility] Address Unknown Phone Unavailable Care Team Providers Care Mold Cleaning And Storage Supervisor Name Role Phone Erik Tavarez Primary Care Physician Unavailable Encounter [facility] [id number] Date(s): 03/08/16 - 03/08/16 [facility] [address] [place], [place] [address] Discharge Diagnosis: Shortness of breath Discharge Diagnosis: Coronary heart disease Discharge Diagnosis: Morbid obesity Discharge Diagnosis: Sleep apnea Discharge Disposition: 01-Home or Self Care Attending Physician: Víctor Farias MD Admitting Physician: Víctor Farias MD Referring Physician: Samuel Thibodeaux MD Vital Signs Most recent to 1 oldest [Reference Range]: Peripheral Pulse 70 bpm Rate [60-100 bpm] (03/08/16 11:06 AM) Respiratory Rate 22 br/min [14-20 br/min] *HI* (03/08/16 11:06 AM) Blood Pressure 118/82 mmHg [90-140/60-90 mmHg] (03/08/16 11:06 AM) SpO2 96 % (03/08/16 11:06 AM) Problem List Condition Effective Dates Status Health Status Informant Acute Active pain(Confirmed) Anginal Active patient pain(Confirmed) At risk for Active injury(Confirmed)1 At risk of pressure Active sore(Confirmed) Stroke(Confirmed) Active patient CHF (congestive Active patient heart failure)(Confirmed) Heart Active patient disease(Confirmed) Hypertension(Confirm Active patient ed) Impaired skin Active integrity(Confirmed) 2 Morbid Active patient obesity(Confirmed) ND (myocardial Active patient infarction)(Confirme d) 1Problem added [...] 0 Refill(s) Start Date: 03/15/15 Status: Ordered gabapentin 100 mg oral capsule 200 mg 2 caps, Oral, TID, 0 Refill(s) Start Date: 01/17/16 Status: Ordered hydrochlorothiazide 25 mg oral tablet [...] Refill(s) Start Date: 03/06/15 Status: Ordered Results Hematology Most recent to 1 oldest [Reference Range]: WBC [4.8-10.8 6.0 10*3/uL 10*3/uL] (03/08/16 1:04 PM) RBC [4.60-6.20] 4.70 (03/08/16 1:04 PM) Hgb [14.0-18.0 14.4 gm/dL gm/dL] (03/08/16 1:04 PM) Hct [42.0-52.0 %] 42.3 % (03/08/16 1:04 PM) MCV [82.0-99.0 fL] 90.0 fL (03/08/16 1:04 PM) MCH [27.0-32.0 pg] 30.6 pg (03/08/16 1:04 PM) MCHC [32.0-36.0 34.0 gm/dL gm/dL] (03/08/16 1:04 PM) RDW [11.5-14.5 %] 14.2 % (03/08/16 1:04 PM) Platelet [150-400 182 10*3/uL 10*3/uL] (03/08/16 1:04 PM) MPV [8.8-14.8 fL] 11.4 fL (03/08/16 1:04 PM) Immature 0.2 % Granulocytes (03/08/16 1:04 PM) [0.0-1.0 %] Neutrophils [51-75 59 % %] (03/08/16 1:04 PM) Lymphocytes [20-46 32 % %] (03/08/16 1:04 PM) Monocytes [4-11 %] 8 % (03/08/16 1:04 PM) Eosinophils [0-4 %] 2 % (03/08/16 1:04 PM) Basophils [0-2 %] 0 % (03/08/16 1:04 PM) Neutro Absolute 3.53 10*3 [1.90-7.00 10*3] (03/08/16 1:04 PM) Lymph Absolute 1.90 10*3 [0.80-3.30 10*3] (03/08/16 1:04 PM) [place] Absolute 0.46 10*3 [0.30-1.00 10*3] (03/08/16 1:04 PM) Eos Absolute 0.10 10*3 [0.00-0.50 10*3] (03/08/16 1:04 PM) Baso Absolute 0.02 10*3 [0.00-0.20 10*3] (03/08/16 1:04 PM) Sed Rate [0-15] 14 (03/08/16 1:04 PM) Chemistry Most recent to 1 oldest [Reference Range]: Sodium Lvl [135-144 137 mEq/L mEq/L] (03/08/16 1:04 PM) Potassium Lvl 3.6 mEq/L [3.5-5.2 mEq/L] (03/08/16 1:04 PM) Chloride [99-111 98 mEq/L mEq/L] *LOW* (03/08/16 1:04 PM) CO2 [23-31 mEq/L] 33 mEq/L *HI* (03/08/16 1:04 PM) AGAP [3-20] 6 (03/08/16 1:04 PM) BUN [8-26 mg/dL] 20 mg/dL (03/08/16 1:04 PM) Glucose Lvl [70-99 88 mg/dL mg/dL] (03/08/16 1:04 PM) Creatinine Lvl 0.92 mg/dL [0.72-1.25 mg/dL] (03/08/16 1:04 PM) eGFR [>60 mL/min] >60 mL/min 1 (03/08/16 1:04 PM) Calcium Lvl 9.8 mg/dL [8.9-10.5 mg/dL] (03/08/16 1:04 PM) BNP [0-99 pg/mL] 23 pg/mL (03/08/16 1:04 PM) 1Result Comment: Multiply eGFR results by 1.21 for race. Immunizations Vaccine Date Refusal Reason influenza virus vaccine, live 06/08/13 influenza virus vaccine, live 06/05/12 influenza virus vaccine, live 05/15/12 influenza virus vaccine, live 05/01/11 influenza virus vaccine, live 06/14/10 Procedures Procedure Date Related Diagnosis Body Site Bypass Graft Coronary Artery1 03/10/15 [place] Vein (Left)2 03/10/15 1auto-populated from documented surgical case 2auto-populated from documented surgical case Social History Social History Type Response Smoking Status Never smoker Assessment and Plan No data available for this section
--- OUTSIDE RECORDS SUMMARY | 2016-11-14 10:34 | XMS REPORT | Referral Summary ---
Author Author [facility] Organization [facility] Address Unknown Phone Unavailable Care Team Providers Care Quantity Surveyor Name Role Phone Erik Tavarez Primary Care Physician Unavailable Encounter [facility] [id number] Date(s): 01/17/16 - 01/17/16 [facility] [address] [place] [address] [place] [address] Discharge Diagnosis: Coronary heart disease Discharge Diagnosis: Peripheral artery disease Discharge Diagnosis: Stable angina Discharge Diagnosis: Status post CVA Discharge Diagnosis: Essential hypertension Discharge Diagnosis: Exertional dyspnea Discharge Diagnosis: Old [place] (myocardial infarction) Discharge Diagnosis: History of airway aspiration Discharge Disposition: 01-Home or Self Care Attending Physician: Samuel Thibodeaux MD Admitting Physician: Samuel Thibodeaux MD Vital Signs Most recent to 1 oldest [Reference Range]: Peripheral Pulse 84 bpm Rate [60-100 bpm] (01/17/16 2:57 PM) Blood Pressure 124/90 mmHg [90-140/60-90 mmHg] (01/17/16 2:57 PM) Problem List Condition Effective Dates Status Health Status Informant Acute Active pain(Confirmed) Anginal Active patient pain(Confirmed) At risk for Active injury(Confirmed)1 At risk of pressure Active sore(Confirmed) Stroke(Confirmed) Active patient CHF (congestive Active patient heart failure)(Confirmed) Heart Active patient disease(Confirmed) Hypertension(Confirm Active patient ed) Impaired skin Active integrity(Confirmed) 2 Morbid Active patient obesity(Confirmed) AL (myocardial Active patient infarction)(Confirme d) 1Problem added automatically by system based on initiation of Risk for Injury Plan of Care 2Problem added automatically by system based on initiation of Impaired Skin Integrity Plan of Care Allergies, Adverse Reactions, Alerts No Known Medication Allergies Medications amiodarone 200 mg oral tablet 200 mg [...] Body Site Bypass Graft Coronary Artery1 03/10/15 Adrian Vein (Left)2 03/10/15 1auto-populated from documented surgical case 2auto-populated from documented surgical case Social History Social History Type Response Smoking Status Never smoker Assessment and Plan No data available for this section
--- OUTSIDE RECORDS SUMMARY | 2016-11-14 10:34 | XMS REPORT | Referral Summary ---
Author Author [facility] Organization [facility] [place] Address Unknown Phone Unavailable Care Team Providers Care Processing Spec Name Role Phone Erik Tavarez Primary Care Physician Unavailable Encounter [facility] [id number] Date(s): 02/01/16 - 02/01/16 [facility] [place] [address], [place] [address] Discharge Disposition: 01-Home or Self Care Attending Physician: Rod Oliver MD Admitting Physician: Rod Oliver MD Referring Physician: Samuel Thibodeaux MD Vital Signs No data available for this section Problem List Condition Effective Dates Status Health Status Informant Acute Active pain(Confirmed) Anginal Active patient pain(Confirmed) At risk for Active injury(Confirmed)1 At risk of pressure Active sore(Confirmed) Stroke(Confirmed) Active patient CHF (congestive Active patient heart failure)(Confirmed) Heart Active patient disease(Confirmed) Hypertension(Confirm Active patient ed) Impaired skin Active integrity(Confirmed) 2 Morbid Active patient obesity(Confirmed) NC (myocardial Active patient infarction)(Confirme d) 1Problem added [...] Body Site Bypass Graft Coronary Artery1 03/10/15 [place] Vein (Left)2 03/10/15 1auto-populated from documented surgical case 2auto-populated from documented surgical case Social History Social History Type Response Smoking Status Never smoker Assessment and Plan No data available for this section
--- OUTSIDE RECORDS SUMMARY | 2016-11-14 10:34 | XMS REPORT | Referral Summary ---
Author Author [facility] Organization [facility] Address Unknown Phone Unavailable Care Team Providers Care Blood Donor Recruiter Name Role Phone Erik Tavarez Primary Care Physician Unavailable Encounter [facility] [id number] Date(s): 06/04/16 - 06/04/16 [facility] [address] [place], [place] [address] Discharge Diagnosis: Dyspnea Discharge Diagnosis: ILD (interstitial lung disease) Discharge Diagnosis: Hypersensitivity pneumonitis Discharge Diagnosis: CAD (coronary artery disease) Discharge Diagnosis: Obesity Discharge Diagnosis: Sleep apnea Discharge Disposition: 01-Home or Self Care Attending Physician: Víctor Farias MD Admitting Physician: Víctor Farias MD Vital Signs Most recent to 1 oldest [Reference Range]: Peripheral Pulse 82 bpm Rate [60-100 bpm] (06/04/16 10:28 AM) Respiratory Rate 20 br/min [14-20 br/min] (06/04/16 10:28 AM) Blood Pressure 132/84 mmHg [90-140/60-90 mmHg] (06/04/16 10:28 AM) SpO2 95 % (06/04/16 10:28 AM) Problem List Condition Effective Dates Status Health Status Informant Acute Active pain(Confirmed) Anginal Active patient pain(Confirmed) At risk for Active injury(Confirmed)1 At risk of pressure Active sore(Confirmed) Stroke(Confirmed) Active patient CHF (congestive Active patient heart failure)(Confirmed) Heart Active patient disease(Confirmed) Hypertension(Confirm Active patient ed) Impaired skin Active integrity(Confirmed) 2 Morbid Active patient obesity(Confirmed) AR (myocardial Active patient infarction)(Confirme d) 1Problem added [...] Refill(s) Start Date: 03/15/15 Status: Ordered predniSONE 10 mg oral tablet 30 mg 3 tabs, Oral, Daily, X 35 days, # 105 tabs, 0 Refill(s), Pharmacy: [facility], 3 tabs Oral Daily,x35 days Start Date: 05/07/16 Stop Date: 06/11/16 Status: Ordered simvastatin 20 mg oral tablet 20 mg 1 tabs, Oral, Bedtime (once a day), # 30 tabs, 0 Refill(s) Start Date: 5/18/16 Status: Ordered traMADol 100 mg, Oral, QID, [...] Body Site Bypass Graft Coronary Artery1 03/10/15 [place] Vein (Left)2 03/10/15 1auto-populated from documented surgical case 2auto-populated from documented surgical case Social History Social History Type Response Smoking Status Never smoker Assessment and Plan No data available for this section
--- OUTSIDE RECORDS SUMMARY | 2016-11-14 10:34 | XMS REPORT | Continuity of Care Document ---
Author Author [facility] Organization [facility] Address Unknown Phone Unavailable Allergies Active Description Code Type Severity Reaction Onset Reported/Identified Relationship to Patient Clinical Status Yes No Known Allergies Drug Allergy Unknown N/A 09/15/2013 Yes No Known Medication Allergies NKMA N/A N/A 03/06/2015 Yes No Known Medication Allergies NKFL N/A N/A 03/06/2015 Medications Medication Packaging Start Date Stop Date Route Dosage Sig cloNIDine(cloNIDine 0.3 mg oral tablet) 05/19/20142014 See Instructions, TAKE ONE TABLET BY MOUTH TWICE DAILY, 180 tabs hydrochlorothiazide(hydrochlorothiazide 50 mg oral tablet) 05/19/2014 11/07/2014 See Instructions, TAKE 1 TABLET BY MOUTH DAILY, 90 tabs minoxidil(minoxidil 10 mg oral tablet) 06/29/2014 12/16/2014 See Instructions, TAKE ONE ONE-HALF TABLETS BY MOUTH EVERY DAY, 135 tabs simvastatin(simvastatin 20 mg oral tablet) 07/12/20142014 See Instructions, TAKE 1 TABLET BY MOUTH DAILY IN THE EVENING, 90 tabs sildenafil(sildenafil 20 mg oral tablet) 07/22/20142014 See Instructions, TAKE ONE TO THREE TABLETS BY MOUTH DAILY NEEDED, 30 tabs omeprazole(omeprazole 40 mg oral delayed release capsule) 09/22/2014 03/06/2015 See Instructions, take 1 capsule (40MG) by oral route every day before a meal, 90 unknown unit cloNIDine(cloNIDine 0.3 mg oral tablet) 11/07/20142014 See Instructions, TAKE ONE TABLET BY MOUTH TWICE DAILY, 180 tabs hydrochlorothiazide(hydrochlorothiazide 50 mg oral tablet) 11/07/2014 03/06/2015 See Instructions, TAKE 1 TABLET BY MOUTH DAILY, 90 tabs minoxidil(minoxidil 10 mg oral tablet) 12/16/2014 03/06/2015 See Instructions, TAKE ONE ONE-HALF TABLETS BY MOUTH EVERY DAY, 135 tabs aspirin(aspirin) 4 tabs 03/06/2015 03/06/2015 Oral 324 mg 324 mg=4 tabs, Oral, Once nitroglycerin(nitroglycerin 0.4 mg sublingual tablet) 1 tabs 03/06/2015 03/06/2015 SubLingual 0.4 mg 0.4 mg=1 tabs, SubLingual, Once, PRN: Angina/Chest Pain nitroglycerin(Nitro-Bid) 1 inch 03/06/2015 03/06/2015 Topical 1 g 1 g=1 inch, Topical, Once omeprazole(omeprazole) 03/06/2015 Oral 40 mg 40 mg, Oral, Daily, 0 Refill(s) minoxidil(minoxidil) 03/06/2015 03/15/2015 Oral 15 mg 15 mg, Oral, Daily, 0 Refill(s) hydrochlorothiazide(hydrochlorothiazide) 03/06/20152014 Oral 25 mg 25 mg, Oral, Daily, 0 Refill(s) simvastatin(simvastatin) 03/06/2015 03/15/2015 Oral 20 mg 20 mg , Oral, Bedtime (once a day), 0 Refill(s) cloNIDine(cloNIDine) 03/06/2015 03/15/2015 Oral 0.3 mg 0.3 mg, Oral, BID, 0 Refill(s) nitroglycerin(Nitrostat) 03/06/2015 SubLingual 0.4 mg 0.4 mg, SubLingual, q5min, not to exceed 3 doses/15 min--if pain persists, seek medical attention, PRN: as needed for chest pain, 0 Refill(s) morphine(morphine) 2 mL 03/06/2015 03/07/2015 IV Push 4 mg 4 mg= 2 mL, IV Push, q15min, PRN: Pain ondansetron(Zofran) 2 mL 03/06/2015 03/06/2015 IV Push 4 mg 4 mg= 2 mL, IV Push, Once enoxaparin(Lovenox) 0.8 mL 03/06/2015 03/06/2015 SubCutaneous 120 mg 120 mg=0.8 mL, SubCutaneous, Once traMADol(traMADol) 03/06/2015 Oral 100 mg 100 mg, Oral, QID, 50-100 mg as needed, PRN: as needed for pain, 0 Refill(s) nitroglycerin(Nitro-Dur 0.1 mg/hr transdermal film, extended release) 1 patches 03/06/2015 03/15/2015 TransDermal 1 patches, TransDermal , Daily, 0 Refill(s) aspirin(aspirin) 03/06/2015 Oral 81 mg 81 mg, Oral, Daily, 0 Refill(s) aspirin(aspirin) 1 tabs 03/06/2015 03/10/2015 Oral 81 mg 81 mg= 1 tabs, Oral, Daily cloNIDine(cloNIDine) 2 tabs 03/06/2015 03/15/2015 Oral 0.2 mg 0.2 mg=2 tabs, Oral, BID nitroglycerin(Nitro-Dur 0.1 mg/hr transdermal film, extended release) 1 patches 03/07/2015 03/10/2015 TransDermal 1 patches, TransDermal , Daily atorvastatin(atorvastatin) 1 tabs 03/07/2015 03/15/2015 Oral 40 mg 40 mg=1 tabs, Oral, Bedtime (once a day) omeprazole(omeprazole) 2 caps 03/07/2015 03/10/2015 Oral 40 mg 40 mg=2 caps, Oral, Daily ibuprofen(ibuprofen) 1 tabs 03/07/2015 03/15/2015 Oral 800 mg 800 mg=1 tabs, Oral, TID, PRN: Pain hydrochlorothiazide(hydrochlorothiazide) 1 tabs 03/07/2015 Oral 25 mg 25 mg=1 tabs, Oral, Daily traMADol(traMADol) 2 tabs 03/07/2015 03/15/2015 Oral 100 mg 100 mg=2 tabs, Oral, QID, PRN: Pain Moderate (4-6) nitroglycerin(Nitrostat 0.4 mg sublingual tablet) 1 tabs 03/07/2015 03/08/2015 SubLingual 0.4 mg 0.4 mg=1 tabs, SubLingual, q5min, PRN: Angina/ Chest Pain potassium chloride(potassium chloride 20 mEq oral tablet, extended release) 1 tabs 03/07/2015 03/08/2015 Oral 20 mEq 20 mEq=1 tabs, Oral, TIDWM potassium chloride(potassium chloride 20 mEq oral tablet, extended release) 1 tabs 03/07/2015 03/08/2015 Oral 20 mEq 20 mEq=1 tabs, Oral, Daily morphine(morphine 4 mg/mL syringe 1 mL) 1 mL 03/07/20152014 IV Push 4 mg 4 mg=1 mL, IV Push, q4hr, PRN: Pain Severe (7-10) ondansetron(Zofran) 2 mL 03/08/2015 03/10/2015 IV Push 4 mg 4 mg= 2 mL, IV Push, q6hr, PRN: Nausea nitroglycerin(nitroglycerin) 1 tabs 03/08/2015 03/15/2015 SubLingual 0.4 mg 0.4 mg=1 tabs, SubLingual, q5min, PRN: Angina/Chest Pain mupirocin topical(Bactroban) 1 darby 03/09/2015 03/10/2015 Nasal 1 darby, Nasal, BID allopurinol(Zyloprim) 2 tabs 03/09/2015 03/10/2015 Oral 600 mg 600 mg=2 tabs, Oral, Once acetaminophen(acetaminophen) 1 supp 03/09/2015 03/14/2015 Rectal 650 mg 650 mg=1 supp, Rectal, q4hr, PRN: Pain zolpidem(Ambien) 1 tabs 03/09/2015 03/15/2015 Oral 5 mg 5 mg=1 tabs, Oral, Bedtime (once a day), PRN: Insomnia enoxaparin(Lovenox) 0.4 mL 03/09/2015 03/09/2015 SubCutaneous 40 mg 40 mg=0.4 mL, SubCutaneous, Daily enoxaparin(Lovenox) 0.8 mL 03/09/2015 03/09/2015 SubCutaneous 80 mg 80 mg=0.8 mL, SubCutaneous, Once metoclopramide(Reglan) 2 mL 03/10/2015 03/15/2015 IV Push 10 mg 10 mg=2 mL, IV Push, q6hr, PRN: Nausea docusate(Colace) 2 caps 03/10/2015 03/15/2015 Oral 200 mg 200 mg=2 caps, Oral, Daily albuterol(albuterol CFC free 90 mcg/inh inhalation aerosol ) 6 puffs 03/10/2015 03/11/2015 Inhalation 540 mcg 540 mcg=6 puffs, Inhalation, q4hr (scheduled), PRN: Wheezing ondansetron(Zofran) 2 mL 03/10/2015 03/15/2015 IV Push 4 mg 4 mg= 2 mL, IV Push, q6hr, PRN: Nausea glucagon(glucagon) 1 mL 03/10/2015 03/14/2015 IntraMuscular 1 mg 1 mg=1 mL, IntraMuscular, As Indicated, PRN: Hypoglycemia/Low Blood Sugar Al hydroxide/Mg hydroxide/simethicone(Maalox Advanced Maximum Strength oral suspension) 15 mL 03/10/2015 03/15/2015 Oral 15 mL, Oral, q4hr, PRN: GERD/Heartburn HYDROmorphone(HYDROmorphone) 1 mL 03/10/2015 03/15/2015 IV Push 1 mg 1 mg=1 mL, IV Push, q2hr, PRN: Pain Severe (7-10) Sodium Chloride 0.9%(Sodium Chloride 0.9% 250 mL) 250 mL 03/10/2015 03/11/2015 IV 10 mL/hr, IV polyethylene glycol 3350(MiraLax) 1 packets 03/10/20152014 Oral 17 g 17 g=1 packets, Oral, Daily albuterol(albuterol 5 mg/mL (0.5%) inhalation solution) 0.5 mL 03/10/2015 03/15/2015 NEB 2.5 mg 2.5 mg=0.5 mL, NEB, q4hr (scheduled), PRN: Wheezing Dextrose 50% in Water(Dextrose 50% in Water Injection) 25 mL 03/10/2015 03/14/2015 IV Push 12.5 g 12.5 g=25 mL, IV Push, q15min, PRN: Hypoglycemia/Low Blood Sugar Dextrose 10% in Water(Dextrose 10% in Water 250 mL) 250 mL 03/10/2015 03/14/2015 IV 50 mL/hr, IV heparin(heparin) 1 mL 03/10/2015 03/15/2015 SubCutaneous 5,000 units 5,000 units=1 mL, SubCutaneous, TID oxyCODONE(Roxicodone) 2 tabs 03/10/2015 03/14/2015 Oral 10 mg 10 mg=2 tabs, Oral, q4hr, PRN: Pain Moderate (4-6) senna(Senokot) 1 tabs 03/10/2015 03/15/2015 Oral 8.6 mg 8.6 mg=1 tabs, Oral, BID acetaminophen(acetaminophen) 1 supp 03/10/2015 03/10/2015 Rectal 650 mg 650 mg=1 supp, Rectal, q4hr, PRN: Fever aspirin(aspirin) 1 tabs 03/10/2015 03/15/2015 Oral 81 mg 81 mg= 1 tabs, Oral, Daily magnesium sulfate(magnesium sulfate) 100 mL 03/10/20152014 IV Piggyback 4 g 4 g=100 mL, 25 mL/hr, IV Piggyback, Daily, PRN: Other (See Comment) potassium chloride(potassium chloride 10 mEq/50 mL intravenous solution) 50 mL 03/10/2015 03/14/2015 IV Piggyback 10 mEq 10 mEq=50 mL, 50 mL/hr, IV Piggyback, q1hr, PRN: Other (See Comment) potassium chloride(potassium chloride 20 mEq oral tablet, extended release) 2 tabs 03/10/2015 03/14/2015 Oral 40 mEq 40 mEq=2 tabs, Oral, q2hr, PRN: Other (See Comment) calcium gluconate(calcium gluconate) 30 mL 03/10/20152014 IV Piggyback 3 g 3 g=30 mL, 33.33 mL/hr, IV Piggyback, Daily, PRN: Other ( See Comment) albumin human(albumin human 5% intravenous solution) 250 mL 03/10/2015 03/10/2015 IV Piggyback 12.5 g 12.5 g=250 mL, 0 mL/hr, IV Piggyback, Once albumin human(albumin human 5% intravenous solution) 500 mL 03/10/2015 03/10/2015 IV Piggyback 25 g 25 g=500 mL, IV Piggyback, Once albuterol(albuterol 5 mg/mL (0.5%) inhalation solution) 0.5 mL 03/11/2015 03/15/2015 NEB 2.5 mg 2.5 mg=0.5 mL, NEB, [id number] metoprolol(metoprolol tartrate 25 mg oral tablet) 1 tabs 03/11/2015 03/15/2015 Oral 50 mg 50 mg=1 tabs, Oral, BID furosemide(Lasix) 2 mL 03/11/2015 03/11/2015 IV Push 20 mg 20 mg =2 mL, IV Push, q12hr potassium chloride(potassium chloride 20 mEq oral tablet, extended release) 1 tabs 03/11/2015 03/15/2015 Oral 20 mEq 20 mEq=1 tabs, Oral, Daily ketorolac(Toradol) 1 mL 03/11/2015 03/15/2015 IV Push 15 mg 15 mg =1 mL, IV Push, q6hr, PRN: Pain - Breakthrough metoprolol(metoprolol tartrate 25 mg oral tablet) 1 tabs 03/11/2015 03/11/2015 Oral 25 mg 25 mg=1 tabs, Oral, Once bumetanide(Bumex) 4 mL 03/11/2015 03/14/2015 IV Push 1 mg 1 mg= 4 mL, IV Push, q12hr (scheduled) famotidine(Pepcid) 1 tabs 03/11/2015 03/15/2015 Oral 20 mg 20 mg= 1 tabs, Oral, q12hr amiodarone(amiodarone) 3 mL 03/11/2015 03/11/2015 IV Piggyback 150 mg 150 mg=3 mL, 600 mL/hr, IV Piggyback, Once tamsulosin(tamsulosin) 1 caps 03/12/2015 03/15/2015 Oral 0.4 mg 0.4 mg=1 caps, Oral, Daily amiodarone(amiodarone) 1 tabs 03/13/2015 03/15/2015 Oral 200 mg 200 mg=1 tabs, Oral, BID oxyCODONE-acetaminophen(oxyCODONE-acetaminophen 10 mg-325 mg oral tablet) 201403/15/2015 Oral 1-2 tabs, Oral, q6hr, PRN: Pain Moderate (4-6) lisinopril(lisinopril) 1 tabs 03/14/2015 03/15/2015 Oral 10 mg 10 mg=1 tabs, Oral, Daily bumetanide(Bumex) 1 tabs 03/14/2015 03/15/2015 Oral 1 mg 1 mg=1 tabs, Oral, Daily nitroglycerin(Nitrostat 0.4 mg sublingual tablet) 1 tabs 03/15/2015 03/15/2015 SubLingual 0.4 mg 0.4 mg=1 tabs, SubLingual, q5min, PRN: Angina/ Chest Pain cloNIDine(cloNIDine 0.1 mg oral tablet) 2 tabs 03/15/201507/15 Oral 0.2 mg 0.2 mg=2 tabs, Oral, BID, 0 Refill(s) metoprolol(metoprolol tartrate 50 mg oral tablet) 03/15/2015 Oral Oral, BID, 0 Refill(s) atorvastatin(atorvastatin 40 mg oral tablet) 1 tabs 03/15/2015 01/17/2016 Oral 40 mg 40 mg=1 tabs, Oral, Bedtime (once a day), 0 Refill(s) amiodarone(amiodarone 200 mg oral tablet) 1 tabs 03/15/201504/2016 Oral 200 mg 200 mg=1 tabs, Oral, BID, 0 Refill(s) bumetanide(Bumex) 1 tabs 03/15/2015 Oral 1 mg 1 mg=1 tabs, Oral, Daily, 0 Refill(s) acetaminophen(acetaminophen 325 mg oral tablet) 2 tabs 03/15/2015 01/17/2016 Oral 650 mg 650 mg=2 tabs, Oral, q4hr, PRN: Pain Mild (1-3), 0 Refill(s) lisinopril(lisinopril 10 mg oral tablet) 1 tabs 03/15/2015 Oral 10 mg 10 mg=1 tabs, Oral, Daily, 0 Refill(s) oxyCODONE-acetaminophen(oxyCODONE-acetaminophen 10 mg-325 mg oral tablet) 201403/20/2016 Oral 1-2 tabs, Oral, q6hr, PRN: Pain Moderate (4-6), 0 Refill(s) tamsulosin(tamsulosin 0.4 mg oral capsule) 1 caps 03/15/2015 Oral 0.4 mg 0.4 mg=1 caps, Oral, Daily, 0 Refill(s) potassium chloride(potassium chloride 20 mEq oral tablet, extended release) 1 tabs 03/15/2015 Oral 20 mEq 20 mEq=1 tabs, Oral, Daily, 0 Refill( s) minoxidil(minoxidil 10 mg oral tablet) 1 tabs 01/17/20162016 Oral 10 mg 10 mg=1 tabs, Oral, Daily, 30 tabs, 0 Refill(s) simvastatin(simvastatin 20 mg oral tablet) 1 tabs 01/17/2016 Oral 20 mg 20 mg=1 tabs, Oral, Bedtime (once a day), 30 tabs, 0 Refill(s ) isosorbide mononitrate(isosorbide mononitrate 60 mg oral tablet, extended release) 1 tabs 01/17/2016 Oral 60 mg 60 mg=1 tabs, Oral, qAM, 0 Refill(s) hydrochlorothiazide(hydrochlorothiazide 25 mg oral tablet) 1 tabs 01/17/2016 Oral 25 mg 25 mg=1 tabs, Oral, Daily, 0 Refill(s) gabapentin(gabapentin 100 mg oral capsule) 2 caps 01/17/2016 Oral 200 mg 200 mg=2 caps, Oral, TID, 0 Refill(s) predniSONE(predniSONE 20 mg oral tablet) 2 tabs 03/20/201608/2016 Oral 40 mg 40 mg=2 tabs, Oral, Daily, 60 tabs, 2 Refill(s) ibuprofen(Advil) 05/22/2016 09/19/2016 Oral 400 mg 400 mg, Oral, q6hr, PRN: as needed for arthritis, 0 Refill(s) cloNIDine(cloNIDine 0.3 mg oral tablet) 1 tabs 07/15/2016 Oral 0.3 mg 0.3 mg=1 tabs, Oral, BID, 180 tabs, 0 Refill(s) predniSONE(predniSONE 10 mg oral tablet) 07/15/20162015 See Instructions, 2 tabs po QD, 60 tabs, 0 Refill(s) influenza virus vaccine, inactivated(influenza virus vaccine, inactivated) 0.5 mL 08/12/2016 08/12/2016 IntraMuscular 0.5 mL, IntraMuscular, Once pneumococcal 13-valent conjugate vaccine(pneumococcal 13- valent conjugate vaccine) 0.5 mL 08/12/2016 08/12/2016 IntraMuscular 0.5 mL , IntraMuscular, Once losartan(losartan 50 mg oral tablet) 1 tabs 09/16/20162016 Oral 50 mg 50 mg=1 tabs, Oral, Daily, 90 tabs, 3 Refill(s) atorvastatin(atorvastatin 40 mg oral tablet) 1 tabs 09/16/2016 09/16/2016 Oral 40 mg 40 mg=1 tabs, Oral, Daily, 90 tabs, 0 Refill(s) minoxidil(minoxidil 10 mg oral tablet) 09/16/2016 Oral one half tab, Oral, Daily, 30 tabs, 3 Refill(s) losartan(losartan 50 mg oral tablet) 1 tabs 09/16/2016 Oral 50 mg 50 mg=1 tabs, Oral, Daily, 90 tabs, 3 Refill(s) atorvastatin(atorvastatin 40 mg oral tablet) 1 tabs 09/16/2016 Oral 40 mg 40 mg=1 tabs, Oral, Daily, 90 tabs, 4 Refill(s) budesonide-formoterol(Symbicort 160 mcg-4.5 mcg/inh inhalation aerosol) 2 puffs 11/07/2016 Inhalation 2 puffs, Inhalation, BID, Sample X 1 given to pt. Instructed on use with spacer., 1 Each, 0 Refill(s) Problems Date Dx Coded Attending Type Code Diagnosis Diagnosed By 03/06/2015 Marvin Castillo Admitting 411.1 03/21/2015 Marvin Castillo Final 272.4 OTHER AND UNSPECIFIED HYPERLIPIDEMIA 03/21/2015 Marvin Castillo Final 278.00 OBESITY, UNSPECIFIED 03/21/2015 Marvin Castillo Final 285.1 ACUTE POSTHEMORRHAGIC ANEMIA 03/21/2015 Marvin Castillo Final 338.29 Other chronic pain 03/21/2015 Marvin Castillo Final 401.9 UNSPECIFIED ESSENTIAL HYPERTENSION 03/21/2015 Marvin Castillo Final 411.1 INTERMEDIATE CORONARY SYNDROME 03/21/2015 Marvin Castillo Final 412 OLD MYOCARDIAL INFARCTION 03/21/2015 Marvin Castillo Final 427.31 ATRIAL FIBRILLATION 03/21/2015 Marvin Castillo Final 428.0 CONGESTIVE HEART FAILURE, UNSPECIFIED 03/21/2015 Marvin Castillo Final 438.89 OTHER LATE EFFECTS OF CEREBROVASCULAR DISEASE 03/21/2015 Marvin Castillo Final 518.0 PULMONARY COLLAPSE 03/21/2015 Marvin Castillo Final 724.5 BACKACHE, UNSPECIFIED 03/21/2015 Marvin Castillo Final 788.20 RETENTION OF URINE, UNSPECIFIED 03/21/2015 Marvin Castillo Final V43.65 KNEE JOINT REPLACED BY OTHER MEANS 03/21/2015 Marvin Castillo Final V45.82 PERCUTANEOUS TRANSLUMINAL CORONARY ANGIOPLASTY, POSTSURGICAL STATUS 03/21/2015 Marvin Castillo Final V85.41 Body Mass Index 40.0-44.9, Adult 03/21/2015 Marvin Castillo Final 414.01 CORONARY ATHEROSCLEROSIS OF [place] CORONARY ARTERY Procedures Code Description Performed By Performed On 77.28 METATAR/TAR WEDG OSTEOT Jenny CHONG, [facility] 09/22/2013 78.58 INT FIXATION-METATAR/TAR Jenny CHONG, [facility] 09/22/2013 80.97 EXCISION OF ANKLE NEC Jenny CHONG, [facility] 09/22/2013 81.49 OTHER REPAIR OF ANKLE Jenny CHONG, [facility] 09/22/2013 83.42 OTHER TENONECTOMY Jenny CHONG, [facility] 09/22/2013 83.91 ADHESIOLYSIS MUS/TEN/FAS Jenny CHONG, [facility] 09/22/2013 39.61 Extracorporeal circulation auxiliary to open heart surgery 03/10/2015 Results Test Result Range CBC - 09/23/13 06:25 MEAN CELL HGB 30.1 pg 27.0-33.0 MEAN CELL HGB CONCENTRATION 32.9 g/dL 32.0-37.0 MEAN CELL VOLUME 91.5 fl 80.0-100.0 RED BLOOD CELL 4.02 m/cumm 4.00-6.00 RED CELL DISTRIBUTION WIDTH 14.0 % 11.0- 15.6 WHITE BLOOD CELL 7.3 k/cumm 5.0-10.0 HEMOGLOBIN 12.1 gm/dL 14.0-18.0 HEMATOCRIT 36.8 % 40.0-54.0 PLATELET COUNT 165 k/cumm 150-400 METABOLIC PANEL, COMPREHN - 09/23/13 06:25 POTASSIUM 3.4 mmol/L 3.5-5.3 EST GFR (MDRD) > 60 mL/min > 59 ANION GAP 7 mmol/L 5-15 EST CrCl (CG) > 60 mL/min > 59 GLUCOSE 108 mg/dL 70-99 CALCIUM 8.9 mg/dL 8.5-10.1 BLOOD UREA NITROGEN 11 mg/dL 7-20 CREATININE 0.9 mg/dL 0.8-1.3 SODIUM 142 mmol/L 135-148 CHLORIDE 105 mmol/L 98-110 AST/SGOT 28 Units/L 10-37 ALT/SGPT 35 Units/L < 66 CARBON DIOXIDE 30 mmol/L 21-32 TOTAL PROTEIN 6.5 gm/dL 6.4-8.2 ALBUMIN 3.3 gm/dL 3.4-5.0 BILI TOTAL 0.5 mg/dL 0.0-1.0 ALKALINE PHOSPHATASE TOTAL 61 IU/L 45- 117 METABOLIC PANEL, BASIC - 09/24/13 04:40 POTASSIUM 3.6 mmol/L 3.5-5.3 EST GFR (MDRD) > 60 mL/min > 59 ANION GAP 9 mmol/L 5-15 EST CrCl (CG) > 60 mL/min > 59 GLUCOSE 88 mg/dL 70-99 CALCIUM 8.9 mg/dL 8.5-10.1 BLOOD UREA NITROGEN 11 mg/dL 7-20 CREATININE 0.8 mg/dL 0.8-1.3 SODIUM 144 mmol/L 135-148 CHLORIDE 107 mmol/L 98-110 CARBON DIOXIDE 28 mmol/L -32 CBC With Platelet and Differential - 03/08/16 13:04 Absolute Basophils 0.02 10*3 0.00-0.20 Absolute Eosinophils 0.10 10*3 0.00-0.50 Absolute Lymphocytes 1.90 10*3 0.80-3.30 Absolute Monocytes 0.46 10*3 0.30-1.00 Absolute Neutrophils 3.53 10*3 1.90-7.00 Basophils 0 % 0-2 Eosinophils 2 % 0-4 HCT 42.3 % 42.0-52.0 HGB 14.4 g/dL 14.0-18.0 Immature Granulocytes 0.2 % 0.0-1.0 Lymphocytes 32 % 20-46 MCH 30.6 pg 27.0-32.0 MCHC 34.0 g/dL 32.0-36.0 MCV 90.0 fL 82.0-99.0 Monocytes 8 % 4-11 MPV 11.4 fL 8.8-14.8 Neutrophils 59 % 51-75 Platelet Count 182 K/uL 150-400 RBC 4.70 10*6/uL 4.60-6.20 RDW 14.2 % 11.5-14.5 WBC 6.0 K/uL 4.8-10.8 B-Type Natriuretic Peptide - 03/08/16 13:04 B-Type Natriuretic Peptide 23 pg/mL 0-99 Basic Metabolic Panel (BMP) - 03/08/16 13:04 Anion Gap 6 NA 3-20 BUN 20 mg/dL 8-26 Calcium 9.8 mg/dL 8.9-10.5 Chloride 98 mEq/L 99-111 CO2 33 mEq/L 23-31 Creatinine 0.92 mg/dL 0.72-1.25 Glucose 88 mg/dL 70-99 Potassium 3.6 mEq/L 3.5-5.2 Sodium 137 mEq/L 135-144 C-Reactive Protein - 03/08/16 13:04 C-Reactive Protein <0.5 mg/dL <0.5 eGFR - 03/08/16 13:04 eGFR >60 mL/min >60 Sedimentation Rate - 03/08/16 13:04 Sedimentation Rate 14 mm/h 0-15 Hypersensitivity Pneumonitis Panel - 03/08/16 13:04 M. faeni, IgG Ab 3.4 mcg/mL <5.0 A. fumigatus, IgG Ab 12.5 mcg/mL <46.0 T. vulgaris, IgG Ab 3.3 mcg/mL <13.0 Alternaria tenuis IgG 5.5 mcg/mL <12.0 A pullulans IgG 6.5 mcg/mL <18.0 Pen. Chrysogenum IgG 16.0 mcg/mL <22.0 Phoma betae IgG 5.5 mcg/mL <8.0 Trichoderma viride IgG 7.8 mcg/mL <10.0 Basic Metabolic Panel (BMP) - 11/06/16 10:35 Chloride 97 mEq/L 99-111 Potassium 3.1 mEq/L 3.5-5.2 Sodium 137 mEq/L 135-144 eGFR - 11/06/16 10:35 eGFR >60 mL/min >60 B-Type Natriuretic Peptide - 11/06/16 10:35 B-Type Natriuretic Peptide 83 pg/mL 0-99 Encounters ACCT No. Visit Date/Time Discharge Status Pt. Type Provider Facility Loc./Unit Complaint [id number] 09/22/2013 04:54:00 2013 15:04:00 DIS Outpatient Jenny CHONG, [facility] W.OPRA [id number] 09/15/2013 09:46:00 2013 09:46:00 DIS Outpatient Jenny CHONG, [facility] MARISOL
--- OUTSIDE RECORDS SUMMARY | 2016-11-14 10:34 | XMS REPORT | Referral Summary ---
Author Author [facility] Organization [facility] Address Unknown Phone Unavailable Care Team Providers Care Press Cleaner Name Role Phone Erik Tavarez Primary Care Physician Unavailable Encounter [facility] [id number] Date(s): 03/08/16 - 03/08/16 [facility] [address] [place], [place] [address] Discharge Diagnosis: SOB (shortness of breath) Discharge Disposition: 01-Home or Self Care Attending Physician: Víctor Farias MD Admitting Physician: Víctor Farias MD Referring Physician: Víctor Farias MD Vital Signs No [...] Active integrity(Confirmed) 2 Morbid Active patient obesity(Confirmed) [place] (myocardial Active patient infarction)(Confirme d) 1Problem added [...] Body Site Bypass Graft Coronary Artery1 03/10/15 [place] Vein (Left)2 03/10/15 1auto-populated from documented surgical case 2auto-populated from documented surgical case Social History Social History Type Response Smoking Status Never smoker Assessment and Plan No data available for this section
--- OUTSIDE RECORDS SUMMARY | 2016-11-14 10:34 | XMS REPORT | Referral Summary ---
Author Author [facility] Organization [facility] Address Unknown Phone Unavailable Care Team Providers Care Coil Maker Name Role Phone Erik Tavarez Primary Care Physician Unavailable Encounter [facility] [id number] Date(s): 02/01/16 - 02/01/16 [facility] [address] [place], [place] [address] Discharge Disposition: 01-Home or Self Care Attending Physician: Samuel Thibodeaux MD Admitting Physician: Samuel Thibodeaux MD Vital Signs No [...] Active integrity(Confirmed) 2 Morbid Active patient obesity(Confirmed) [place] (myocardial Active patient infarction)(Confirme d) 1Problem added [...] Body Site Bypass Graft Coronary Artery1 03/10/15 [place] Vein (Left)2 03/10/15 1auto-populated from documented surgical case 2auto-populated from documented surgical case Social History Social History Type Response Smoking Status Never smoker Assessment and Plan No data available for this section
--- OUTSIDE RECORDS SUMMARY | 2016-11-14 10:34 | XMS REPORT | Referral Summary ---
Author Author [facility] Organization [facility] Address Unknown Phone Unavailable Care Team Providers Care Rag Willow Operator Name Role Phone Erik Tavarez Primary Care Physician Unavailable Encounter [facility] [id number] Date(s): 07/16/16 - 07/16/16 [facility] [place] [address], [place] [address] Discharge Disposition: 01-Home or Self Care Attending Physician: Taylor Barrera MD Admitting Physician: Taylor Barrera MD Referring Physician: Taylor Barrera MD Vital Signs No data available for this section Problem List Condition Effective Dates Status Health Status Informant Acute Active pain(Confirmed) Anginal Active patient pain(Confirmed) At risk for Active injury(Confirmed)1 At risk of pressure Active sore(Confirmed) Stroke(Confirmed) Active patient CHF (congestive Active patient heart failure)(Confirmed) Heart Active patient disease(Confirmed) Hypertension(Confirm Active patient ed) Impaired skin Active integrity(Confirmed) 2 Morbid Active patient obesity(Confirmed) [place] (myocardial Active patient infarction)(Confirme d) 1Problem added [...] Status: Ordered predniSONE 10 mg oral tablet See Instructions, 2 tabs po QD, # 60 tabs, 0 Refill(s), Pharmacy: [facility], 2 tabs po QD Start Date: 07/15/16 Stop Date: 07/29/16 Status: Ordered predniSONE 10 mg oral tablet 30 mg 3 tabs, Oral, Daily, # 90 tabs, 0 Refill(s), Pharmacy: [facility], 3 tabs Oral Daily,x30 days Start Date: 06/17/16 Stop Date: 07/16/16 Status: Ordered simvastatin 20 mg oral tablet [...] Body Site Bypass Graft Coronary Artery1 03/10/15 [place] Vein (Left)2 03/10/15 1auto-populated from documented surgical case 2auto-populated from documented surgical case Social History Social History Type Response Smoking Status Never smoker Assessment and Plan No data available for this section
--- OUTSIDE RECORDS SUMMARY | 2016-11-14 10:34 | XMS REPORT | CCD ---
Author Author CLYDE BECERRA Organization Unknown Address [address], [place] [id number] Phone 0 Care Team Providers Care Certification And Selection Specialist Name Role Phone Bryn NICHOLAS Attending Physician [phone] [place] Rounding Physician 0 Vital Signs Unknown or Not Available. Allergies Unknown or Not Available. Procedures Procedure Code Procedure Type Date CHEST [id number] 03/31/2015 History of Immunizations Immunization Code Date influenza, split (incl. purified surface antigen) 15 08/06/2005 Problems Unknown or Not Available. Results BASIC METABOLIC - Collect Date/Time: 03/31/2015 15:50 Test Name Code Test Result Test Units Test Ref Range GLUCOSE 125 mg/dL L=70 H=110 BUN 15 mg/dL L=7 H=18 CREATININE 1.30 mg/ dL L=0.60 H=1.30 AGE 70 YEARS GFR 58.2 SODIUM 133 mmol/L L=136 H=145 POTASSIUM 3.7 mmol/ L L=3.5 H=5.1 CHLORIDE 96 mmol/L L=98 H=107 CO2 32 mmol/L L=21 H=32 CALCIUM 9.2 mg/dL L=8.5 H=10.1 CBC (HEMOGRAM ONLY) - Collect Date/Time: 03/31/2015 15:50 Test Name Code Test Result Test Units Test Ref Range WBC 7.1 x10^3 L=4.8 H=10.8 RBC 3.38 x10^6 L=4.70 H=6.10 HEMOGLOBIN 10.7 g/ dL L=14.0 H=18.0 HEMATOCRIT 30.4 % L=42.0 H=52.0 MCV 90 fL L=80 H=100 MCH 31.6 pg L=27.0 H=33.0 MCHC 35.0 g/dL L=33.0 H=37.0 RDW 14.6 % L=11.5 H=14.5 PLATELETS 271 x10^3 L=150 H=450 MPV 7.8 fL L=7.8 H=11.0 Active Medications Unknown or Not Available. Medications Administered During Visit Unknown or Not Available. Encounters Encounter Diagnosis Diagnosis Code Start Date HYPERTENSION NOS 4019 03/31/2015 Social History Smoking Status Code Start Date End Date Unknown if ever smoked [id number] Patient Decision Aids Unknown or Not Available. Discharge Instructions You were admitted to [facility] on 03/31/2015 with a principal diagnosis of HYPERTENSION NOS. You were discharged from [facility] on 03/31/2015. Should you have any questions prior to discharge, please contact a member of your healthcare team. If you have left the hospital and have any questions, please contact your primary care physician. Chief Complaint and Reason For Visit Chief Complaint Date of Onset LAB Function Status Unknown or Not Available. Plan of Care Unknown or Not Available. Referral/Transition of Care Unknown or Not Available.
--- OUTSIDE RECORDS SUMMARY | 2016-11-14 10:34 | XMS REPORT | Referral Summary ---
Author Author [facility] Organization [facility] Address Unknown Phone Unavailable Care Team Providers Care Body Worker Name Role Phone Erik Tavarez Primary Care Physician Unavailable Encounter [facility] [id number] Date(s): 02/07/16 - 02/07/16 [facility] [address] [place] [address] DEEPIKA Olvera [address] Discharge Diagnosis: Effort angina Discharge Diagnosis: Pulmonary infiltrate Discharge Diagnosis: Coronary heart disease Discharge Diagnosis: Short of breath on exertion Discharge Diagnosis: Central sleep apnea Discharge Diagnosis: Obesity Discharge Diagnosis: Hypertensive heart disease Discharge Disposition: 01-Home or Self Care Attending Physician: Samuel Thibodeaux MD Admitting Physician: Samuel Thibodeaux MD Referring Physician: Erik Tavarez MD Vital Signs Most recent to 1 oldest [Reference Range]: Peripheral Pulse 76 bpm Rate [60-100 bpm] (02/07/16 1:11 PM) Blood Pressure 120/86 mmHg [90-140/60-90 mmHg] (02/07/16 1:11 PM) Problem List Condition Effective Dates Status Health Status Informant Acute Active pain(Confirmed) Anginal Active patient pain(Confirmed) At risk for Active injury(Confirmed)1 At risk of pressure Active sore(Confirmed) Stroke(Confirmed) Active patient CHF (congestive Active patient heart failure)(Confirmed) Heart Active patient disease(Confirmed) Hypertension(Confirm Active patient ed) Impaired skin Active integrity(Confirmed) 2 Morbid Active patient obesity(Confirmed) [place] (myocardial Active patient infarction)(Confirme d) 1Problem added [...] Body Site Bypass Graft Coronary Artery1 03/10/15 [place] Vein (Left)2 03/10/15 1auto-populated from documented surgical case 2auto-populated from documented surgical case Social History Social History Type Response Smoking Status Never smoker Assessment and Plan Extracted from: Title: Office Visit Note Author: Samuel Thibodeaux MD Date: 02/07/16 Assessment/Plan 1.Effort angina 2.Short of breath on exertion 3.Central sleep apnea 4.Coronary heart disease 5.Pulmonary infiltrate 6.Obesity 7.Hypertensive heart disease Discussion: Clearly this man has coronary artery disease however, I reviewed his heart catheterization before his operationas well as the one after. Certainly he does have stenosis in the right, the circumflex, and the anterior descending artery however, I probably would've advised ongoing medical treatment rather than surgery. After surgery,hiscircumflex artery is large and it fills very wellthere is a stenosis but it does not appear to be severe. Likewise, the anterior descending fills brisklythrough the [place] vessel and there is competitive flow with theleft internal mammary bypass with much more flow coming throughtheparent artery. The right coronary artery appears to be patentand small. At this point, then, I certainly don't think that any intervention is warranted. One wonders if his symptomsmay have been mediated bydiastolic dysfunction and hypertensive heart disease and perhaps endothelial dysfunction. I strongly advised the patient and his thatsurgeryand stentingare not warranted. I strongly encouragedhimto pursue ongoing medical treatment. An additional concern is his respiratory situation. His chest x-ray is mildly abnormal and his symptoms are mostly dyspnea and he has been on amiodarone. At this point, I advised him to stop amiodarone. I advised him to confer with his primary care team regarding a pulmonary nursing consultant. I advised him that he might want to see a sleep nursing consultant as well. I think that he probably has central sleep apnea. I advised medical treatment of his high blood pressure. He clearly does havenocturnalbreathing abnormalityconsistent with sleep apnea, again, possibly central. He is going to discontinue amiodarone. He is going to confer with his primary care team regarding a pulmonary nursing consultant and possibly a sleep nursing consultant. He is have a follow-up visit here in 3 or 4 months. Time of visit about 25 minutes.
--- OUTSIDE RECORDS SUMMARY | 2016-11-14 10:34 | XMS REPORT | Referral Summary ---
Author Author [facility] Organization [facility] Address Unknown Phone Unavailable Care Team Providers Care Yield Clerk Name Role Phone Erik Tavarez Primary Care Physician Unavailable Encounter Date(s): 05/22/16 - 05/22/16 [facility] [address] [place] [address] DEEPIKA Olvera [id number] Discharge Disposition: 01-Home or Self Care Attending Physician: Samuel Thibodeaux MD Admitting Physician: Samuel Thibodeaux MD Referring Physician: Erik Tavarez MD Vital Signs Most recent to 1 oldest [Reference Range]: Peripheral Pulse 68 bpm Rate [60-100 bpm] (05/22/16 12:44 PM) Blood Pressure 110/70 mmHg [90-140/60-90 mmHg] (05/22/16 12:44 PM) Problem List Condition Effective Dates Status Health Status Informant Acute Active pain(Confirmed) Anginal Active patient pain(Confirmed) At risk for Active injury(Confirmed)1 At risk of pressure Active sore(Confirmed) Stroke(Confirmed) Active patient CHF (congestive Active patient heart failure)(Confirmed) Heart Active patient disease(Confirmed) Hypertension(Confirm Active patient ed) Impaired skin Active integrity(Confirmed) 2 Morbid Active patient obesity(Confirmed) [place] (myocardial Active patient infarction)(Confirme d) 1Problem added [...] # 105 tabs, 0 Refill(s), Pharmacy: [facility], 3 tabs Oral Daily,x35 days Start Date: [...] Body Site Bypass Graft Coronary Artery1 03/10/15 [place] Vein (Left)2 03/10/15 1auto-populated from documented surgical case 2auto-populated from documented surgical case Social History Social History Type Response Smoking Status Never smoker Assessment and Plan No data available for this section
--- OUTSIDE RECORDS SUMMARY | 2016-11-14 10:34 | XMS REPORT | Referral Summary ---
Author Author [facility] Organization [facility] Address Unknown Phone Unavailable Care Team Providers Care Cellophane Casting Machine Repairer Name Role Phone Erik Tavarez Primary Care Physician Unavailable Encounter [facility] [id number] Date(s): 07/15/16 - 07/15/16 [facility] [address] [place], [place] [address] Discharge Disposition: 01-Home or Self Care Attending Physician: Bird Casas Admitting Physician: Bird Casas Vital Signs Most recent to 1 oldest [Reference Range]: Peripheral Pulse 82 bpm Rate [60-100 bpm] (07/15/16 10:11 AM) Respiratory Rate 20 br/min [14-20 br/min] (07/15/16 10:11 AM) Blood Pressure 130/78 mmHg [90-140/60-90 mmHg] (07/15/16 10:11 AM) SpO2 96 % (07/15/16 10:11 AM) Problem List Condition Effective Dates Status Health Status Informant Acute Active pain(Confirmed) Anginal Active patient pain(Confirmed) At risk for Active injury(Confirmed)1 At risk of pressure Active sore(Confirmed) Stroke(Confirmed) Active patient CHF (congestive Active patient heart failure)(Confirmed) Heart Active patient disease(Confirmed) Hypertension(Confirm Active patient ed) Impaired skin Active integrity(Confirmed) 2 Morbid Active patient obesity(Confirmed) [place] (myocardial Active patient infarction)(Confirme d) 1Problem added [...] QD, # 60 tabs, 0 Refill(s), Pharmacy: [facility], 2 tabs po QD Start Date: 07/15/16 Stop Date: 07/29/16 Status: Ordered predniSONE 10 mg oral tablet 30 mg 3 tabs, Oral, Daily, # 90 tabs, 0 Refill(s), Pharmacy: [facility], 3 tabs Oral Daily,x30 days Start Date: [...] Body Site Bypass Graft Coronary Artery1 03/10/15 [place] Vein (Left)2 03/10/15 1auto-populated from documented surgical case 2auto-populated from documented surgical case Social History Social History Type Response Smoking Status Never smoker Assessment and Plan No data available for this section
--- NOTE | 2016-11-14 10:35 | ERPDOC ---
Departure Disposition Decision Date: Nov 14, 2016 Disposition Decision Time: 12:15 Disposition: 02 TO [facility] Impression Impression Impression: Primary Impression: Bilateral pneumonia Pneumonia type: due to unspecified organism Lung location: unspecified part of lung Qualified Codes: J18.9 - Pneumonia, unspecified organism Additional Impression: Acute on chronic respiratory failure with hypoxemia Severity: Moderate Condition: Stable Seen By: Physician only Referrals: CHRIS NICHOLAS MD (Family) Problems/Meds/Labs Reviewed?: Yes Medications reviewed and manag: Yes Follow up care ordered?: Yes Mental Status: Alert, Oriented HPI - Respiratory General General Stated Complaint: DIFFICULTY BREATHING Time Seen by Provider: 10:34 HPI - Respiratory General Allergies: Coded Allergies: No Known Allergies (Unverified , 12/20/15) Past History Vaccines Hx Influenza Vaccination: Yes (July 2015) Hx Pneumococcal Vaccination: Yes Physical Exam General Vitals and Pain First Documented Vital Signs Date Time Temp Pulse Resp B/P Pulse Ox O2 Delivery O2 Flow Rate FiO2 11/14/16 10:31 78 Non-Rebreather 15.00 11/14/16 10:31 108 36 121/59 11/14/16 11:23 100 Weight: Kilograms: Height (feet): 5 Height (inches): 9.00 Triage Pain Scale: Progress Results/Orders Orders Procedure Category Date Status Time Albuterol/Ipratropium PHA 11/14/16 Complete (Duoneb) 10:45 Blood Gas, Arterial - LAB 11/14/16 Complete ABG 10:36 Iv Lock (Ed Only) EDM 11/14/16 Transmitted 10:36 Lactate - Lactic Acid LAB 11/14/16 Complete 10:40 Blood Culture CRISTINA 11/14/16 In Process 10:40 Cbc W/Auto LAB 11/14/16 Complete Diff-Reflex Manual 10:40 Cmp - Comprehensive LAB 11/14/16 Complete Metabolic 10:40 Procalcitonin LAB 11/14/16 Complete 10:40 Oxygen Administration EDM 11/14/16 Transmitted 10:40 Ua, Dip Wreflex LAB 11/14/16 Logged Microsc & Hedis Registered Nurse Rn 10:40 EKG EKG 11/14/16 Taken 10:40 Troponin I W LAB 11/14/16 Complete Hemolysis Index 10:40 Probnp LAB 11/14/16 Complete 10:40 Levofloxacin 750 Mg PHA 11/14/16 Complete Ivpb (Levaquin 750 M 10:45 Lorazepam (Ativan) PHA 11/14/16 Complete 11:15 Chest 1 View RAD 11/14/16 Resulted 11:37 Lactate - Lactic Acid LAB 11/14/16 Logged 15:30 Lorazepam (Ativan) PHA 11/14/16 In Process 12:30 Place In Facility: ED ADM 11/14/16 Transmitted 12:15 Lab Results Laboratory Tests Test 11/14/16 10:43 11/14/16 10:59 Arterial Blood pH 7.460 Arterial Blood Partial Pressure CO2 49MMHG Arterial Blood pO2 at Patient Temp 47MMHG Arterial Blood HCO3 35MEQ/L Arterial Blood Total CO2 36.3MEQ/L Arterial Blood Oxygen Saturation 85.0% Arterial Blood Base Excess 9.5MMOL/L Oxygen Delivery Method (LAB) Bpap, liters Blood Gas Oxygen Liter Flow 10.0 Blood Gas Oxygen Percent Given Blood Gas Vent Rate Blood Gas Tidal Volume ML White Blood Count 7.8T/MM3 Red Blood Count 3.31M/MM3 Hemoglobin 10.5GM/DL Hematocrit 32.2% Mean Corpuscular Volume 97.3UM3 Mean Corpuscular Hemoglobin 31.7UUG Mean Corpuscular Hemoglobin Concent 32.6GM/DL RDW Standard Deviation 52.1FL Platelet Count 219T/MM3 Mean Platelet Volume 10.5UM3 Immature Granulocyte % (Auto) 1.7% Neutrophils (%) (Auto) 70.5% Lymphocytes (%) (Auto) 14.5% Monocytes (%) (Auto) 12.6% Eosinophils (%) (Auto) 0.4% Basophils (%) (Auto) 0.3% Absolute Immature Granulocyte (auto 0.13T/MM3 Absolute Neutrophils (auto) 5.5T/MM3 Absolute Lymphocytes (auto) 1.1T/MM3 Absolute Monocytes (auto) 1.0T/MM3 Absolute Eosinophils (auto) 0.0T/MM3 Absolute Basophils (auto) 0.0T/MM3 Turbidity < 20 Sodium Level 139MEQ/L Potassium Level 3.6MEQ/L Chloride Level 92MEQ/L Carbon Dioxide Level 35MEQ/L Anion Gap 12MEQ/L Blood Urea Nitrogen 23.0MG/DL Creatinine 0.9MG/DL Glomerular Filtration Rate Calc 83 BUN/Creatinine Ratio 26RATIO Glucose Level 132MG/DL Calculated Osmolality 274MOSM/KG Calcium Level 9.3MG/DL Total Bilirubin 3.10MG/DL Icterus Index < 2 Aspartate Amino Transf (AST/SGOT) 125U/L Alanine Aminotransferase (ALT/SGPT) 96U/L Alkaline Phosphatase 145U/L Troponin I 0.060ng/ml VS-Znj-D-Type Natriuretic Peptide 2050PG/ML Total Protein 6.9G/DL Albumin 3.6G/DL Globulin 3.3G/DL Albumin/Globulin Ratio 1.1RATIO Plasma Lactate 3.3MMOL/L Procalcitonin 0.27NG/ML Chemistry Specimen Hemolysis < 15 Medications Current ED Medications Albuterol/ Ipratropium 3 ml 3 ml O ONCE AEROSOL Last administered on 10:45; Start 11/14/16 at 10:45; Stop 11/14/16 at 10:46; Status DC Levofloxacin/ Dextrose/Water (LEVAQUIN 750 mg IVPB/D5W) 150 ml @ 100 mls/hr O ONCE IV Last administered on 11/14/16 11:03; Start 11/14/16 at 10:45; Stop at 12:14; Status DC Lorazepam (Ativan) 0.5 mg O ONCE IV Last administered on 11/14/16 11:14; Start 11/14/16 at 11:15; Stop 11/14/16 at 11:16; Status DC Lorazepam (Ativan) 0.5 mg O ONCE IV ; Start 11/14/16 at 12:30; Stop 11/14/16 at 12:31 JESSEE MARTÍNEZ MD Nov 14, 2016 10:34
--- OUTSIDE RECORDS SUMMARY | 2016-11-14 10:35 | XMS REPORT | Referral Summary ---
Author Author [facility] Organization [facility] Address Unknown Phone Unavailable Care Team Providers Care Lead Ios Developer Name Role Phone Bryn Tavarez Primary Care Physician Unavailable Encounter [facility] [id number] Date(s): 09/16/16 - 09/16/16 [facility] [address] [place], [place] [address] Discharge Diagnosis: Coronary heart disease Discharge Diagnosis: Debility Discharge Diagnosis: Situational depression Discharge Diagnosis: Chronic headaches Discharge Diagnosis: Severe essential hypertension Discharge Diagnosis: Morbid obesity Discharge Diagnosis: Central sleep apnea Discharge Disposition: 01-Home or Self Care Attending Physician: Samuel Thibodeaux MD Admitting Physician: Samuel Thibodeaux MD Vital Signs Most recent to 1 oldest [Reference Range]: Peripheral Pulse 72 bpm Rate [60-100 bpm] (09/16/16 9:15 AM) Blood Pressure 142/92 mmHg [90-140/60-90 mmHg] *HI* (09/16/16 9:15 AM) Problem List Condition Effective Dates Status [...] Active integrity(Confirmed) 2 Morbid Active patient obesity(Confirmed) [place] (myocardial Active patient infarction)(Confirme d) Situational Active [...] Daily, # 90 tabs, 4 Refill(s), Pharmacy: [facility], 1 tabs Oral Daily Start Date: 09/16/16 [...] Daily, # 90 tabs, 3 Refill(s), Pharmacy: [facility], 1 tabs Oral Daily Start Date: 09/16/16 Status: Ordered metoprolol tartrate 50 mg oral tablet Oral, BID, 0 Refill(s) Start Date: 03/15/15 Status: Ordered minoxidil 10 mg oral tablet one half tab, Oral, Daily, # 30 tabs, 3 Refill(s), Pharmacy: [facility], one half tab Oral Daily Start Date: [...] 60 tabs, 1 Refill(s), Pharmacy: [facility], 2 tabs Oral Daily,x30 days Start Date: [...] Body Site Bypass Graft Coronary Artery1 03/10/15 [place] Vein (Left)2 03/10/15 1auto-populated from documented surgical case 2auto-populated from documented surgical case Social History Social History Type Response Smoking Status Never smoker Assessment and Plan Extracted from: Title: Office Visit Note Author: Samuel Thibodeaux MD Date: 09/16/16 Assessment/Plan 1.Severe essential hypertension Ordered: Return to Clinic 2.Coronary heart disease Ordered: Return to Clinic 3.Central sleep apnea Ordered: Return to Clinic 4.Morbid obesity Ordered: Return to Clinic 5.Debility Ordered: Return to Clinic 6.Chronic headaches 7.Situational depression Discussion: The patient has a lingeringapprehension that"blockages" other cause of this problem. I reviewed, again,ourstudy of his arteries and our review of his symptomsand I reassured himthatour treatment fix his have not been helpful. I advised him to discontinue ibuprofen altogether and to try to use tramadol for pain. I advised him that ibuprofen will increase his blood pressure and irritate his stomachanddecreased renal blood flow. I stopped simvastatin and added atorvastatin. I added losartan, 50 mg daily. I advised him to reduce his minoxidil to one half tablet daily since it may be aggravating his headaches. He is to see me again in 2 months. Clearly this man isextraordinary in terms of symptom complex and pathology. Time of visit today approximately 30 minutes. Referrals to Other Providers Referred by: Samuel Thibodeaux MD
[2016-11-14] MEDS ORDERED: ALBUTEROL/IPRATROPIUM INHAL. 2.5mg-0.5mg/3ml Neb. AEROSOL ONE (10:45)
[2016-11-14] MEDS ORDERED: LEVOFLOXACIN 750 mg IVPB 750 MG in D5W 150 ML IV ONE (10:45)
--- NOTE | 2016-11-14 11:06 | NUR ---
STATUS BiPAP IN PLACE. PT CONTINUES TO PULL AT MASK AND STATES "I FEEL LIKE I CAN'T BREATHE." VS WNL. AT BEDSIDE REPORTS PT FEELS "CLAUSTROPHOBIC." DR. MARTÍNEZ NOTIFIED.
[2016-11-14 11:15] LABS: BASOPHILS % (AUTO) 0.3 % (0-2); EOSINOPHILS % (AUTO) 0.4 % (0-4); HCT - HEMATOCRIT 32.2 % (41-53); HGB - HEMOGLOBIN 10.5 GM/DL (13.5-17.5); IMMATURE GRANULOCYTE # (AUTO) 0.13 T/MM3 (0.00-0.03); IMMATURE GRANULOCYTE % (AUTO) 1.7 % (0.0-0.5); LYMPHOCYTES # (AUTO) 1.1 T/MM3 (1-4.8); LYMPHOCYTES % (AUTO) 14.5 % (23-45); MEAN CORPUSCULAR HGB 31.7 UUG (26-34); MEAN CORPUSCULAR HGB CONC(MCHC 32.6 GM/DL (31-37); MEAN CORPUSCULAR VOLUME 97.3 UM3 (80-100); MEAN PLATELET VOLUME 10.5 UM3 (9.4-12.4); MONOCYTES % (AUTO) 12.6 % (0-9.0); NEUTROPHILS #(AUTO)-ABSOLUTE 5.5 T/MM3 (1.8-7.7); NEUTROPHILS % (AUTO) 70.5 % (33-66); RED BLOOD COUNT 3.31 M/MM3 (4.50-5.90); WBC - WHITE BLOOD COUNT 7.8 T/MM3 (4.5-11.0)
[2016-11-14] MEDS ORDERED: LORAZEPAM 2 MG/ML INJECTION IV ONE ×2 (11:15→12:30)
--- OUTSIDE RECORDS SUMMARY | 2016-11-14 11:17 | XMS REPORT | Continuity of Care Document ---
Author Author [facility] Organization [facility] Address Unknown Phone Unavailable Allergies Active Description Code Type Severity Reaction Onset Reported/Identified Relationship to Patient Clinical Status Yes No Known Allergies Drug Allergy Unknown N/A 09/15/2013 Yes No Known Medication Allergies NKMA N/A N/A 03/06/2015 Yes No Known Medication Allergies NKSC N/A N/A 03/06/2015 Medications Medication Packaging Start [...] NEB 2.5 mg 2.5 mg=0.5 mL, NEB, [id number] metoprolol(metoprolol tartrate 25 mg oral tablet) 1 [...] Marvin Castillo Final 414.01 CORONARY ATHEROSCLEROSIS OF [place] CORONARY ARTERY Procedures Code Description Performed By Performed On 77.28 METATAR/TAR WEDG OSTEOT Jenny CHONG, [facility] 09/22/2013 78.58 INT FIXATION-METATAR/TAR Jenny CHONG, [facility] 09/22/2013 80.97 EXCISION OF ANKLE NEC Jenny CHONG, [facility] 09/22/2013 81.49 OTHER REPAIR OF ANKLE Jenny CHONG, [facility] 09/22/2013 83.42 OTHER TENONECTOMY Jenny CHONG, [facility] 09/22/2013 83.91 ADHESIOLYSIS MUS/TEN/FAS Jenny CHONG, [facility] 09/22/2013 39.61 Extracorporeal circulation auxiliary to open [...] Status Pt. Type Provider Facility Loc./Unit Complaint [id number] 09/22/2013 04:54:00 2013 15:04:00 DIS Outpatient Jenny CHONG, [facility] W.OPRA [id number] 09/15/2013 09:46:00 2013 09:46:00 DIS Outpatient Jenny CHONG, [facility] MARISOL
[2016-11-14 11:24] LABS: LACTATE - LACTIC ACID 3.3 MMOL/L (0.6-2.2)
[2016-11-14 11:27] LABS: ALBUMIN 3.6 G/DL (3.5-5.0); ALBUMIN/GLOBULIN RATIO 1.1 RATIO (1.1-2.2); ALKALINE PHOSPHATASE 145 U/L (38-126); ALT (SGPT) 96 U/L (21-72); ANION GAP 12 MEQ/L (5-15); AST (SGOT) 125 U/L (17-59); BUN/CREATININE RATIO 26 RATIO (6-26); CALCIUM 9.3 MG/DL (8.4-10.2); CHLORIDE 92 MEQ/L (98-107); CO2 - CARBON DIOXIDE 35 MEQ/L (22-30); CREATININE 0.9 MG/DL (0.8-1.5); GLOMERULAR FILTRATION RATE 83; GLUCOSE 132 MG/DL (75-110); POTASSIUM 3.6 MEQ/L (3.6-5); SODIUM 139 MEQ/L (134-144); TOTAL PROTEIN 6.9 G/DL (6.3-8.2)
--- NOTE | 2016-11-14 11:28 | NUR ---
STATUS PT APPEARS TO BE MORE RELAXED IN CART. WORK OF BREATHING IMPROVED SIGNIFICANTLY AFTER BiPAP APPLIED. PT CONTINUES TO OCCASIONALLY PULL AT MASK TO COUGH AND WIPE MOUTH WITH KLEENEX. VS STABLE, CALL LIGHT WITHIN REACH.
[2016-11-14 11:38] LABS: PROBNP 2050 PG/ML (0-175)
--- NOTE | 2016-11-14 11:49 | NUR ---
XRAY PORTABLE XRAY AT BEDSIDE.
[2016-11-14] MEDS ORDERED: ISOS60TA4 PO (11:52)
[2016-11-14] MEDS ORDERED: LOSA50TA52 PO (11:52)
[2016-11-14] MEDS ORDERED: TRAM50TA4 PO (11:52)
[2016-11-14] MEDS ORDERED: ATOR40TA64 PO (11:52)
[2016-11-14] MEDS ORDERED: POTA20TA87 PO (11:52)
--- NOTE | 2016-11-14 12:13 | DI ---
Indication: ITS.REASON: cough shortness of air on BiPAP CHEST 1 VIEW: Comparison: 10/24/2015 Technique: Single upright portable chest Findings: Patient shows extensive patchy bilateral infiltrative changes with marked worsening since the prior study. Heart seems to be more prominent as well. Patient still shows previous median sternotomy sutures in place. Impression: 1. Since the prior study extensive bilateral interstitial and alveolar fluffy infiltrates which are present throughout both sides of the chest. Heart size seems to have increased somewhat since the prior study as well. 2. Differential considerations include extensive multilobar pneumonic infiltrate some versus interstitial and alveolar edema although, do not see significant pleural effusions. 3. Follow-up after medical treatment recommended make certain findings improve. .
--- NOTE | 2016-11-14 12:20 | NUR ---
MASOOD KAY APRN AT BEDSIDE. Addendum: 11/14/16 at 1815 by BARRIE RT PLACED PT ON 15L NRB WHILE HOSPITALIST AT BEDSIDE TO ALLOW PT TO SPEAK. PT MAINTAINING SPO2 96%. WILL CONTINUE TO MONITOR.
--- OUTSIDE RECORDS SUMMARY | 2016-11-14 12:35 | XMS REPORT | Continuity of Care Document ---
Author Author Organization Address Unknown Phone Unavailable Allergies Active Description Code Type Severity Reaction Onset Reported/Identified Relationship to Patient Clinical Status Yes No Known Allergies Drug Allergy Unknown N/A 09/15/2013 Yes No Known Medication Allergies NKMA N/A N/A 03/06/2015 Yes No Known Medication Allergies NKAZ N/A N/A 03/06/2015 Medications Medication Packaging Start [...] NEB 2.5 mg 2.5 mg=0.5 mL, NEB, [id number] metoprolol(metoprolol tartrate 25 mg oral tablet) 1 [...] Marvin Castillo Final 414.01 CORONARY ATHEROSCLEROSIS OF [place] CORONARY ARTERY Procedures Code Description Performed By Performed On 77.28 METATAR/TAR WEDG OSTEOT Jenny CHONG, [facility] 09/22/2013 78.58 INT FIXATION-METATAR/TAR Jenny CHONG, [facility] 09/22/2013 80.97 EXCISION OF ANKLE NEC Jenny CHONG, [facility] 09/22/2013 81.49 OTHER REPAIR OF ANKLE Jenny CHONG, [facility] 09/22/2013 83.42 OTHER TENONECTOMY Jenny CHONG, [facility] 09/22/2013 83.91 ADHESIOLYSIS MUS/TEN/FAS Jenny CHONG, [facility] 09/22/2013 39.61 Extracorporeal circulation auxiliary to open [...] Status Pt. Type Provider Facility Loc./Unit Complaint [id number] 09/22/2013 04:54:00 2013 15:04:00 DIS Outpatient Jenny CHONG, [facility] W.OPRA [id number] 09/15/2013 09:46:00 2013 09:46:00 DIS Outpatient Jenny CHONG, [facility] MAR[place]
--- NOTE | 2016-11-14 12:40 | NUR ---
REPORT CALLED TO OSKAR MCDUFFIE ON CCU. DENIES QUESTIONS.
--- NOTE | 2016-11-14 12:55 | NUR ---
ADMIT PT TAKEN TO CCU, BED 1 BY CART ON 15L NRB. PT SLIDES FROM ER BED TO CCU BED WITH INCREASED WOB.
--- NOTE | 2016-11-14 13:05 | NUR ---
Admitted to CCU per cart, slowly transfers self to bed, then VERY short of breath. NR Mask on at 15l.
[2016-11-14] MEDS ORDERED: VANCOMYCIN 2,000 MG in NORMAL SALINE 500 ML IV SCH (13:15)
[2016-11-14] MEDS ORDERED: LORAZEPAM 2 MG/ML INJECTION IV PRN (13:15)
--- NOTE | 2016-11-14 13:17 | HPPDOC ---
CHELO KAY V [facility] CONSULTANT 11/14/16 1312: HPI - Adult Date DATE: 11/14/16 TIME: 13:08 General Chief Complaint: Dyspnea History of Present Illness Patient is a 71-year-old male who resides independently in [place], [place]. Patient reports having significant dyspnea that has worsened over the last several days. He chronically uses home oxygen at 3-4 liters, however, today was found to be hypoxic at 72% on his baseline oxygen. EMS was activated and transported patient to [facility] for further evaluation and treatment. Further evaluation including laboratory studies and chest x-ray were obtained. The BBC count was found to be normal at 7.8, hemoglobin 10.5, hematocrit 32.2, platelet count 219, 70% neutrophils. Sodium is 139, potassium 3.6, BUN 23, creatinine 0.9, glucose 132, total bilirubin 3.1, LFTs are elevated with an AST of 125 and ALT 96, and alkaline phosphatase of 145. Troponin 0.060, proBNP 2050. Venous lactate was found to be critically elevated at 3.3, pro calcitonin 0.27. ABG was obtained showing a pH of 7.460, pCO2 49, pO2 47, bicarbonate 35. Chest x-ray did reveal bilateral pneumonia. Patient is significantly hypoxic and was placed on BiPAP while in the emergency room. Vital signs were reviewed, No temperature was obtained in the emergency room. Patient was tachycardic initially at 108, tachypnea, quit a respiration rate of 36, blood pressure 121/59. Given the severity of patient's illness, accompanied with his existing comorbidities. The hospitalist services were contacted and accepted patient for inpatient admission for sepsis, pneumonia, acute respiratory failure with hypoxia. Patient is seen on initial examination, and is alert and oriented. He reports multiple times during examination that he does not like the BiPAP as he feels claustrophobic. Discussed multiple times. The severity of illness and hypoxia. Patient did receive 2 doses of 0.5 milligrams of Ativan to help with his anxiety. Patient reports that for the last 3-4 weeks. He has not felt well with increased episodes of chest pain and continued worsening dyspnea. He does see a chemists, Dr. Arce in [place]. It is chronically on oxygen between 3 and 4 liters. Patient states that he has been utilizing nitroglycerin often for chest pain and is using approximately one bottle per week. He does see Dr. Thibodeaux for his cardiology care. History is obtained from at the bedside. We did discuss advanced directives as well as intubation if patient's respiratory status does decline. They do wish for patient to be a full code and would once intubation if necessary. Past Medical History Past Medical History Coronary artery disease with history of AL (1996, 2000) Cardiac stent- 2007 (LAD, Dr Kevin) Hypertension Dyslipidemia History of CVA-1992 Chronic back pain GERD Obesity Surgical History Patient's Surgical History: Heart Cath- 12/2015 Heart Cath- 01/2015 CABG x4- 03/2015 Bilateral knee repair Lumbar surgery, jen placement, post trauma Right shoulder surgery Cholecystectomy Tonsillectomy Current Medications Home Meds Reported Medications Atorvastatin Calcium (Atorvastatin Calcium) 40 Mg Tablet, 40 MG PO HS 11/14/16 Losartan Potassium (Losartan Potassium) 50 Mg Tablet, 50 MG PO DAILY 11/14/16 Tramadol HCl (Tramadol HCl) 50 Mg Tablet, 50-100 MG PO QID Y for PAIN 11/14/16 Potassium Chloride (Potassium Chloride) 20 Meq Tab.er.prt, 20 MEQ PO BID 11/14/16 Isosorbide Mononitrate (Isosorbide Mononitrate ER) 60 Mg Tab.er.24h, 60 MG PO DAILY 11/14/16 Bumetanide (Bumetanide) 1 Mg Tablet, 1 MG PO DAILY 12/20/15 Aspirin (Aspirin) 81 Mg Tab.chew, 81 MG PO DAILY 02/07/15 Omeprazole (Omeprazole) 40 Mg Capsule.dr, 40 MG PO DAILY 02/07/15 Metoprolol Succinate (Metoprolol Succinate) 50 Mg Tab.er.24h, 25 MG PO BID 02/07/15 Nitroglycerin (Nitrostat) 0.4 Mg Tablet, 0.4 MG PO PRN 02/07/15 Minoxidil (Minoxidil) 10 Mg Tablet, 5 MG PO DAILY 02/07/15 Clonidine HCl (Clonidine HCl) 0.3 Mg Tablet, 0.3 MG PO BID 02/07/15 Allergies: Coded Allergies: No Known Allergies (Unverified , 12/20/15) Family History Family History: Father- DM, Heart Disease Mother- DM Brother- Deseased at age 64 of AL Social History Smoking Status: Former smoker Substance Use Type: does not use Alcohol Intake: none Marital Status: Sexuality: female partner Housing: house Advance Directives: Yes Full Code Social History Comments PCP Dr Barr Director Of Occupational Health- Dr Thibodeaux Oil Tanker Captain- Dr Víctor Farias Review of Systems Constitutional: REPORTS: chills, fatigue, night sweats, weakness Cardiovascular chest pain, dyspnea on exertion, orthopnea, paroxysmal nocturnal dysp Pulmonary Respiratory: cough, dyspnea, sputum, tachypnea Comments Hemoptysis All Other Systems All Other Systems: Reviewed (remainder of 10-point ROS Neg.) Physical Exam General General Nourishment: well nourished, well developed, obese Vital Signs Vital Signs Date Time Temp Pulse Resp B/P Pulse Ox O2 Delivery O2 Flow Rate FiO2 11/14/16 11:24 98 Spontaneous/Timed 70 11/14/16 10:31 108 36 121/59 15.00 Height (Feet): 5 Height (Inches): 7.00 Eyes Brief: FOUND: EOMI, PERRL ENMT Brief: FOUND: mucosa moist Comments Diminished throughout with mild wheezing Cardiovascular (brief) Cardiac Brief: FOUND: pedal edema, regular rate, regular rhythm, NOT FOUND: murmur Abdomen (brief) Abdominal Brief: FOUND: BS normo active x4, soft, NOT FOUND: distended, tender Integumentary (brief) Integumentary Brief: FOUND: dry, pink, warm Neurologic (brief) Neurological Brief: FOUND: cranial 2-12 intact Neurologic RN Documented GCS Eye Opening: Verbal: Motor: Total: Psychiatric (brief) FOUND: alert, attentive, normal affect, oriented Laboratory Laboratory Tests Test 11/14/16 10:43 11/14/16 10:59 Arterial Blood pH 7.460 Arterial Blood Partial Pressure CO2 49MMHG Arterial Blood pO2 at Patient Temp 47MMHG Arterial Blood HCO3 35MEQ/L Arterial Blood Total CO2 36.3MEQ/L Arterial Blood Oxygen Saturation 85.0% Arterial Blood Base Excess 9.5MMOL/L Oxygen Delivery Method (LAB) Bpap, liters Blood Gas Oxygen Liter Flow 10.0 Blood Gas Oxygen Percent Given Blood Gas Vent Rate Blood Gas Tidal Volume ML White Blood Count 7.8T/MM3 Red Blood Count 3.31M/MM3 Hemoglobin 10.5GM/DL Hematocrit 32.2% Mean Corpuscular Volume 97.3UM3 Mean Corpuscular Hemoglobin 31.7UUG Mean Corpuscular Hemoglobin Concent 32.6GM/DL RDW Standard Deviation 52.1FL Platelet Count 219T/MM3 Mean Platelet Volume 10.5UM3 Immature Granulocyte % (Auto) 1.7% Neutrophils (%) (Auto) 70.5% Lymphocytes (%) (Auto) 14.5% Monocytes (%) (Auto) 12.6% Eosinophils (%) (Auto) 0.4% Basophils (%) (Auto) 0.3% Absolute Immature Granulocyte (auto 0.13T/MM3 Absolute Neutrophils (auto) 5.5T/MM3 Absolute Lymphocytes (auto) 1.1T/MM3 Absolute Monocytes (auto) 1.0T/MM3 Absolute Eosinophils (auto) 0.0T/MM3 Absolute Basophils (auto) 0.0T/MM3 Turbidity < 20 Sodium Level 139MEQ/L Potassium Level 3.6MEQ/L Chloride Level 92MEQ/L Carbon Dioxide Level 35MEQ/L Anion Gap 12MEQ/L Blood Urea Nitrogen 23.0MG/DL Creatinine 0.9MG/DL Glomerular Filtration Rate Calc 83 BUN/Creatinine Ratio 26RATIO Glucose Level 132MG/DL Calculated Osmolality 274MOSM/KG Calcium Level 9.3MG/DL Total Bilirubin 3.10MG/DL Icterus Index < 2 Aspartate Amino Transf (AST/SGOT) 125U/L Alanine Aminotransferase (ALT/SGPT) 96U/L Alkaline Phosphatase 145U/L Troponin I 0.060ng/ml RO-Bgm-H-Type Natriuretic Peptide 2050PG/ML Total Protein 6.9G/DL Albumin 3.6G/DL Globulin 3.3G/DL Albumin/Globulin Ratio 1.1RATIO Plasma Lactate 3.3MMOL/L Procalcitonin 0.27NG/ML Chemistry Specimen Hemolysis < 15 Sepsis Diagnostic Criteria Severe Sepsis SpO2 <90% or ventilated, Lactate >=2.0 mg/dL Assessment & Plan Problems: (1) Severe sepsis with acute organ dysfunction Status: Acute Assessment & Plan: Manifestations of severe sepsis include the following- 1. Bilateral pneumonia 2. Acute respiratory failure with hypoxia requiring BiPAP 3. Tachycardia-108 4. Elevated venous lactate, 3.3 on admission 5. Organ dysfunction including elevated LFTs, hyperglycemia in the absence of diabetes (2) Bilateral pneumonia Status: Acute Qualifiers: Pneumonia type: due to unspecified organism Lung location: unspecified part of lung Qualified Codes: J18.9 - Pneumonia, unspecified organism (3) Acute on chronic respiratory failure with hypoxemia Status: Acute (4) Coronary artery disease Status: Chronic (5) Hypertension Status: Chronic (6) On home O2 Status: Chronic Assessment & Plan: 2-3 Liters (7) Dyslipidemia Status: Chronic (8) Chronic back pain Status: Chronic (9) GERD (gastroesophageal reflux disease) Status: Chronic (10) History of CVA (cerebrovascular accident) Status: Resolved Plan/Intensity of Service We will admit patient to inpatient status to the ICU under the care of Dr. Vega for severe sepsis with organ dysfunction, bilateral pneumonia, acute respiratory failure with hypoxia. Was started on IV Levaquin while in the emergency room. We will also add IV vancomycin and consult pharmacy for Vancomycin dosing. Recheck venous lactate at 1530 as per sepsis protocol. In light of acute hemoptysis, accompanied with significant hypoxia, we will obtain a CT to rule out pulmonary emboli. Will start patient on Lovenox 40 grams subcutaneous daily for prophylactic dosing. However, will change dosing If acute emboli is present. Monitor patient on cardiac telemetry and obtain serial troponins to rule out cardiac organ dysfunction or ischemia DuoNeb 4 times a day and Pulmicort twice a day. Will continue patient on BiPAP, and wean down as able. Ativan and morphine available for pain and anxiety Given findings of hyperglycemia will obtain a hemoglobin A1c to rule out underlying diabetes. Patient may have cardiac diet Will review all home medications with Dr. Vega prior to ordering. Will recheck CBC and CMP tomorrow morning to follow blood counts, renal function , electrolytes and LFTs. If liver enzymes continue to be elevated may need to consider further hepatic workup. May consider holding patient's Lipitor as this may influence liver function. Will discuss further plan of care and orders with Dr. Vega Again, patient does wish to be a full code and requests intubation if respiratory status declines during hospitalization. At time of discharge his medical care will return to primary care Dr. Barr and topology professor, Dr. Thibodeaux DVT Prophylaxis: Lovenox Code Status Full Code Hospital Course Summary Disclaimer The hospital course summary below is not to be considered part of the above Progress Note. Hospital Course Summary 11/14/16- Admit We will admit patient to inpatient status to the ICU under the care of Dr. Vega for severe sepsis with organ dysfunction, bilateral pneumonia, acute respiratory failure with hypoxia. Was started on IV Levaquin while in the emergency room. We will also add IV vancomycin and consult pharmacy for Vancomycin dosing. Recheck venous lactate at 1530 as per sepsis protocol. In light of acute hemoptysis, accompanied with significant hypoxia, we will obtain a CT to rule out pulmonary emboli. Will start patient on Lovenox 40 grams subcutaneous daily for prophylactic dosing. However, will change dosing If acute emboli is present. Monitor patient on cardiac telemetry and obtain serial troponins to rule out cardiac organ dysfunction or ischemia DuoNeb 4 times a day and Pulmicort twice a day. Will continue patient on BiPAP, and wean down as able. Ativan and morphine available for pain and anxiety Given findings of hyperglycemia will obtain a hemoglobin A1c to rule out underlying diabetes. Patient may have cardiac diet Will review all home medications with Dr. Vega prior to ordering. Will recheck CBC and CMP tomorrow morning to follow blood counts, renal function , electrolytes and LFTs. If liver enzymes continue to be elevated may need to consider further hepatic workup. May consider holding patient's Lipitor as this may influence liver function. Will discuss further plan of care and orders with Dr. Vega Again, patient does wish to be a full code and requests intubation if respiratory status declines during hospitalization. At time of discharge his medical care will return to primary care Dr. Barr and topology professor, ELINOR Pinedo DO (HOSPITALIST) 11/14/16 1354: Past Medical History Current Medications Home Meds Reported Medications Atorvastatin Calcium (Atorvastatin Calcium) 40 Mg Tablet, 40 MG PO HS 11/14/16 Losartan Potassium (Losartan Potassium) 50 Mg Tablet, 50 MG PO DAILY 11/14/16 Tramadol HCl (Tramadol HCl) 50 Mg Tablet, 50-100 MG PO QID Y for PAIN 11/14/16 Potassium Chloride (Potassium Chloride) 20 Meq Tab.er.prt, 20 MEQ PO BID 11/14/16 Isosorbide Mononitrate (Isosorbide Mononitrate ER) 60 Mg Tab.er.24h, 60 MG PO DAILY 11/14/16 Bumetanide (Bumetanide) 1 Mg Tablet, 1 MG PO DAILY 12/20/15 Aspirin (Aspirin) 81 Mg Tab.chew, 81 MG PO DAILY 02/07/15 Omeprazole (Omeprazole) 40 Mg Capsule.dr, 40 MG PO DAILY 02/07/15 Metoprolol Succinate (Metoprolol Succinate) 50 Mg Tab.er.24h, 25 MG PO BID 02/07/15 Nitroglycerin (Nitrostat) 0.4 Mg Tablet, 0.4 MG PO PRN 02/07/15 Minoxidil (Minoxidil) 10 Mg Tablet, 5 MG PO DAILY 02/07/15 Clonidine HCl (Clonidine HCl) 0.3 Mg Tablet, 0.3 MG PO BID 02/07/15 Allergies: Coded Allergies: No Known Allergies (Unverified , 12/20/15) Assessment & Plan Assessment Patient seen and examined. I agree with above examination and findings. Patient having trouble tolerating to bipap due to claustrophobia. Ativan helps somewhat. Maintaining low 90's oxygen saturation on 15liters non-rebreather. Gen: Alert and oriented X 3. NAD. Obese. CV: RRR Lungs: diminished in bases. no wheezing Abd: soft, NT, ND, + BS Ext: no c/c/e. Vancomycin and levaquin due to chronic lung disease. Get CTA chest to r/o PE with hemoptysis and further deliniate fluid vs infiltrate. Follow lactate and cultures. Add RVP. Nebs. Will need BIPAP prn. CHELO KAY APRN Nov 14, 2016 13:12 ELINOR VEGA DO (HOSPITALIST) Nov 14, 2016 13:54
[2016-11-14] MEDS ORDERED: IOHEXOL 350 MG/ML 75ml INJECTION ONE (13:26)
[2016-11-14] MEDS ORDERED: SALINE FLUSH 10ml SYRINGE ONE (13:26)
[2016-11-14] MEDS ORDERED: NORMAL SALINE 100 ML ONE (13:26)
[2016-11-14] MEDS: MORPHINE SULFATE 2 MG SYRINGE IV PRN ×4 (13:43→21:26)
[2016-11-14] MEDS ORDERED: TRAMADOL 50 MG TABLET PO PRN (14:00)
[2016-11-14] MEDS ORDERED: NITROGLYCERIN 0.4 MG SUBLINGUAL TABLET SL PRN (14:00)
--- NOTE | 2016-11-14 14:00 | NUR ---
MOrphine has been given for air hunger and restlessness, eats some applesauce, then agreed to bipap with sats in 70-80s.
[2016-11-14] MEDS ORDERED: LORAZEPAM 2 MG/ML INJECTION IV SCH (14:30)
[2016-11-14] MEDS ORDERED: VANCOMYCIN 2,000 MG in NORMAL SALINE 500 ML IV ONE (14:30)
--- NOTE | 2016-11-14 14:30 | NUR ---
Ativan given for continued restlessness, air hunger, anxiety. Tolerating Bipap better.
--- NOTE | 2016-11-14 14:44 | NUR ---
VANCOMYCIN CONSULT: Dx: Bilateral Pneumonia, Sepsis Severe S: 71 yo male presented today with severe hypoxia @ 72%. The patient is on oxygen 3-4 liters. The patient has had worsening dyspnea the last few days. CXRs indicated bilateral pneumonia. Plasma lactate of 3.3 indicates Sepsis. O: Serum Creatinine = 0.9 mg/dL Estimated Creatinine Clearance ~ 93 mL/min Lactate = 3.3 PCT = 0.27 Tmax = 98.7 A/P: I will give a bolus of Vancomycin 2,000 mg then start Vancomycin 1,250 mg iv every 8 hours @ 1830. The small interval between the 1st and 2nd dose is to keep the Vancomycin trough just above 15 mcg/ml. Thanks for the Protocol, Demian Perea RPh.
[2016-11-14 15:41] LABS: LACTATE - LACTIC ACID 1.2 MMOL/L (0.6-2.2)
[2016-11-14] MEDS: ALBUTEROL/IPRATROPIUM INHAL. 2.5mg-0.5mg/3ml Neb. AEROSOL SCH ×2 (16:35→20:40)
[2016-11-14] MEDS: ENOXAPARIN 40 MG/0.4 ML INJECTION SQ SCH (17:15)
[2016-11-14] MEDS ORDERED: POTASSIUM CHLORIDE 20 MEQ TABLET PO SCH (17:30)
[2016-11-14] MEDS ORDERED: FUROSEMIDE 20 MG/2 ML INJECTION IV ONE (17:45)
[2016-11-14] MEDS: LORAZEPAM 2 MG/ML INJECTION IV SCH (18:11)
--- NOTE | 2016-11-14 18:20 | NUR ---
To CT with Bipap at this time after duron inserted and lasix and extra dose ativan given IV.
--- NOTE | 2016-11-14 18:55 | NUR ---
Returns from CT after going with Bipap and RT and game technician and RN. Pt unable to hold breath so images may be affected.
--- NOTE | 2016-11-14 19:05 | ECHOF ---
ECHOCARDIOGRAM DATE OF PROCEDURE November 14, 2016 This is a two-dimensional echo with spectral Doppler, color-flow and M-mode. It was obtained in a patient with chest pain. Left atrial dimension is mildly increased. Left ventricular end-diastolic dimension is increased. Left ventricular wall thickness is increased. LV systolic function is normal with ejection fraction of 69%. Right atrium is normal. Right ventricle is normal. Aortic root dimension is normal. Mitral valve is morphologically normal with trace of mitral regurgitation. Aortic valve shows mild fibrocalcific changes with no stenosis or insufficiency. Tricuspid valve shows moderate tricuspid regurgitation with moderate pulmonary hypertension with estimated pulmonary artery systolic pressure of 50. Pulmonary valve was not visualized. There is no pericardial effusion. IMPRESSION 1. Normal LV systolic function with ejection fraction of 69%. 2. Technically difficult study. 3. Mild left ventricular hypertrophy. 4. Mild left atrial dilation. 5. Mild left ventricular dilation. 6. Aortic sclerosis. 7. Trace of mitral regurgitation. 8. Moderate tricuspid regurgitation with moderate pulmonary hypertension with estimated pulmonary artery systolic pressure of 50. MTDD
[2016-11-14] MEDS: VANCOMYCIN 1,250 MG in NORMAL SALINE 250 ML IV SCH (19:38)
--- NOTE | 2016-11-14 19:47 | NUR ---
Meds has had multiple doses of ativan and morphine and has been tolerating Bipap better than earlier, but still has frequent coughing spells and blood tinged mucous.
[2016-11-14 19:52] LABS: BLOOD, URINE 1+ (NEGATIVE); COLOR,URINE YELLOW (YELLOW); LEUKOCYTE ESTERASE ,URINE NEGATIVE (NEGATIVE); NITRITE,URINE NEGATIVE (NEGATIVE)
--- NOTE | 2016-11-14 20:06 | NUR ---
Restlessness Pt not tolerating bipap well. RN took mask off to administer Potassium, pt would not allow it to be replaced. After explaining treatment, able to put bipap back on. SaO2 dropped into the low 70's pretty quickly on RA. RN contacted Dr. Leger. New order received to adjust ativan PRN order to 1mg IV. RN administered.
[2016-11-14] MEDS: LORAZEPAM 2 MG/ML INJECTION IV PRN (20:08)
[2016-11-14 20:23] LABS: BACTERIA,URINE NONE SEEN (NEGATIVE); RBC,URINE 0-1 /HPF (0-3); WBC,URINE NONE SEEN /HPF (0-5)
[2016-11-14] MEDS: BUDESONIDE INH.SOLN. 0.5mg/2ml NEB AEROSOL SCH (20:40)
[2016-11-14] MEDS: PIPERACILLIN/TAZOBACTAM 3.375 G in NORMAL SALINE 100 ML IV SCH (21:27)
[2016-11-14] MEDS: METOPROLOL XL 50 MG TABLET PO SCH (21:30)
[2016-11-14] MEDS: CLONIDINE 0.3 MG TABLET PO SCH (21:30)
--- NOTE | 2016-11-14 21:30 | NUR ---
Respiratory Pt's bipap was removed in an attempt to administer PO medications. Once off, pt had a coughing spell. Unable to administer PO medications due to oxygen saturation dropping to 46%. Bipap placed at 100%FiO2. Will wait for pt's oxygen to recover and reattempt.
[2016-11-14] MEDS ORDERED: GUAIFENESIN DM 600mg/30mg TABLET PO PRN (22:00)
--- NOTE | 2016-11-14 22:15 | NUR ---
PO Medications PO medications administered successfully. Bipap replaced at 100% FiO2 for pt to recover. Will wean down as appropriate.
[2016-11-15] VITALS (51 sets, daily range): BP systolic 102–180; BP diastolic 58–109; PULSE 76–135; RESP 20–65; TEMP 98–100.3; O2SAT 83–100
[2016-11-15] MEDS: LORAZEPAM 2 MG/ML INJECTION IV PRN (02:41)
[2016-11-15] MEDS: PIPERACILLIN/TAZOBACTAM 3.375 G in NORMAL SALINE 100 ML IV SCH ×3 (02:45→15:42)
[2016-11-15] MEDS: VANCOMYCIN 1,250 MG in NORMAL SALINE 250 ML IV SCH ×3 (03:31→18:13)
[2016-11-15] MEDS: MORPHINE SULFATE 2 MG SYRINGE IV PRN ×2 (04:01→06:04)
[2016-11-15 05:01] LABS: HCT - HEMATOCRIT 29.7 % (41-53); HGB - HEMOGLOBIN 9.7 GM/DL (13.5-17.5); MEAN CORPUSCULAR HGB 31.6 UUG (26-34); MEAN CORPUSCULAR HGB CONC(MCHC 32.7 GM/DL (31-37); MEAN CORPUSCULAR VOLUME 96.7 UM3 (80-100); MEAN PLATELET VOLUME 11.3 UM3 (9.4-12.4); RED BLOOD COUNT 3.07 M/MM3 (4.50-5.90); WBC - WHITE BLOOD COUNT 8.2 T/MM3 (4.5-11.0)
[2016-11-15 05:10] LABS: ALBUMIN 3.4 G/DL (3.5-5.0); ALKALINE PHOSPHATASE 113 U/L (38-126); ALT (SGPT) 75 U/L (21-72); ANION GAP 9 MEQ/L (5-15); AST (SGOT) 86 U/L (17-59); BUN/CREATININE RATIO 30 RATIO (6-26); CHLORIDE 95 MEQ/L (98-107); CO2 - CARBON DIOXIDE 33 MEQ/L (22-30); CREATININE 0.7 MG/DL (0.8-1.5); GLOMERULAR FILTRATION RATE 111; GLUCOSE 130 MG/DL (75-110); POTASSIUM 4.3 MEQ/L (3.6-5); SODIUM 137 MEQ/L (134-144); TOTAL PROTEIN 6.8 G/DL (6.3-8.2)
--- NOTE | 2016-11-15 05:54 | NUR ---
Shift Summary Pt slept off and on during the night. Continuous bipap remains in place except for small breaks for sips of water, coughing, and med administration. Pt is only able to tolerate being off bipap for short periods - drops to 40's on RA. When this happens, pt's color turns dusky and lips cyanotic. Resolves with oxygenation. Coughing fits produce thick, bloody sputum. Pt A&Ox3 and appropriate. , Sasha, remained at bedside and assisted with some cares. Pt anxious and feeling claustrophobic with bipap mask. PRN ativan administered for comfort, as well as PRN Morphine for air hunger/chronic back pain. Urine output adequate via duron. IVL to left AC and right forearm, both are intact.
[2016-11-15] MEDS ORDERED: OMEPRAZOLE 20 MG CAPSULE PO SCH (06:30)
[2016-11-15] MEDS ORDERED: ISOSORBIDE MONONITRATE ER 60 MG TABLET PO SCH (06:30)
[2016-11-15 06:34] LABS: BAND NEUTROPHILS # 0.3 T/MM3; EOSINOPHILS # (MANUAL) 0.1 T/MM3 (0-0.5); METAMYELOCYTES # 0.1 T/MM3; MONOCYTES # (MANUAL) 0.6 T/MM3 (0-0.8); MYELOCYTES # 0.2 T/MM3; NEUTROPHILS #(MANUAL)-ABSOLUTE 5.7 T/MM3 (1.8-7.7); NUCLEATED RED BLOOD CELLS 2; REACTIVE LYMPHOCYTES # 0.3 T/MM3 (0-0); TOTAL CELLS COUNTED 100 %
[2016-11-15 06:35] LABS: ANISOCYTOSIS 1+; OVALOCYTES 1+; POIKILOCYTOSIS 1+
[2016-11-15 06:36] LABS: SCHISTOCYTES 1+
[2016-11-15] MEDS: ALBUTEROL/IPRATROPIUM INHAL. 2.5mg-0.5mg/3ml Neb. AEROSOL SCH ×3 (07:42→15:18)
[2016-11-15] MEDS: BUDESONIDE INH.SOLN. 0.5mg/2ml NEB AEROSOL SCH (07:42)
[2016-11-15] MEDS: LORAZEPAM 2 MG/ML INJECTION IV SCH (08:33)
[2016-11-15] MEDS: ENOXAPARIN 40 MG/0.4 ML INJECTION SQ SCH (08:33)
[2016-11-15] MEDS ORDERED: ASPIRIN 81 MG CHEWABLE TABLET PO SCH (09:00)
[2016-11-15] MEDS ORDERED: LOSARTAN 50 MG TABLET PO SCH (09:00)
[2016-11-15] MEDS: CLONIDINE 0.3 MG TABLET PO SCH (09:19)
[2016-11-15] MEDS: METOPROLOL XL 50 MG TABLET PO SCH (09:20)
[2016-11-15] MEDS ORDERED: DILTIAZEM 125 MG in NORMAL SALINE 125 ML IV SCH (10:00)
[2016-11-15] MEDS ORDERED: DILTIAZEM 25mg/5ml INJECTION IV ONE (10:00)
--- NOTE | 2016-11-15 10:04 | DI ---
EXAM: CHEST 1 VIEW COMPARISON: 11/14/2016. 10/24/2015. HISTORY: ITS.REASON: respiratory distress . Crackles in bilateral upper lobes. Productive loose cough. FINDINGS:Study is limited due to motion. The heart is enlarged. The pulmonary vascularity is prominent and indistinct. Persistent ill-defined opacities are seen at the perihilar regions and lung bases. There is no evidence for pleural effusion. There is no evidence for a pneumothorax. No osseous abnormalities are identified. IMPRESSION: 1. Persistent cardio megaly. 2. Perihilar alveolar and interstitial opacifications again noted which is similar to mildly improved compared to the prior exam; however, study is limited due to motion. LOCATION OF DICTATION: [facility] [place]
--- NOTE | 2016-11-15 10:55 | NUR ---
VANCOMYCIN CONSULT: Vancomycin Trough = 15.1 mcg/ml. Today's SCr = 0.7 mg/dl. Will continue to give Vancomycin 1,250 mg IV q8hrs. Will continue to monitor and make adjustments accordingly. Thank you.
[2016-11-15 11:29] LABS: MAGNESIUM 2.1 MG/DL (1.6-2.3)
[2016-11-15] MEDS ORDERED: ENOXAPARIN 150 MG/ML INJECTION SQ SCH (11:45)
--- NOTE | 2016-11-15 11:45 | CONSPD ---
ROBERT TANNER MOLD MECH[employer]IC 11/15/16 1112: Consultation Info Date DATE: 11/15/16 TIME: 11:07 Date of Consultation: Nov 15, 2016 Attending Physician: Elinor Vega DO Reason for Consultation: Afib RVR HPI - Adult Date DATE: 11/15/16 TIME: 11:07 General Date of Admission Date of Admission: Nov 14, 2016 at 12:15 Chief Complaint: Dyspnea History of Present Illness Pedro is a 71-year-old male who is hospitalized for sepsis, bilateral pneumonia and acute respiratory failure with hypoxia who was significantly hypoxic and was placed on BiPAP. Early this morning he was noted to be in AFib RVR which has not been since his arrival to the ED yesterday morning. He reported that for the last 3-4 weeks he has not felt well with increased episodes of chest pain and continued worsening dyspnea. He reported that he has been utilizing nitroglycerin often for chest pain and is using approximately one bottle per week. He sees Dr. 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 The patient remains on BiPAP as is hard to interview, family in the room deny any history of arrhythmia however the patient states he has had an arrhythmia "years ago" that he and his brother were treated for. He denies cardioversion. Past Medical History Past Medical History Metabolic: hypercholesterolemia, hypertension Cardiac: CAD, HI GI: GERD Neurological: CVA Musculoskeletal: back pain Surgical History General: back (lumbar), gallbladder, tonsils Cardiac: cardiac bypass (03/2015), cardiac cath (12/2015), cardiac stent Joint: knee, shoulder (right) Current Medications Home Meds Active Scripts Diltiazem HCl in 0.9% NaCl (Diltiazem HCl-Ns 125 mg/125 ml) 125 Mg/125 Ml Plast..bag, 5 MG IV hr for afib for 1 Day Prov:LIZA ALEMAN MD 11/15/16 Guaifenesin/Dextromethorphan (Mucinex Dm ER 600-30 mg Tablet) 1 Each Tab.er.12h , 1 TAB PO Q12HR Y for COUGH for 10 Days, #20 TAB Prov:LIZA ALEMAN MD 11/15/16 Budesonide (Pulmicort) 0.5 Mg/2 Ml Inha, 0.5 MG AEROSOL BID for 10 Days, INHALER Prov:LIZA ALEMAN MD 11/15/16 Morphine Sulfate (Morphine Sulfate) 2 Mg/1 Ml Syringe, 2 MG IV Q2H Y for AGITATION/AIR HUNGER/PAIN for 10 Days, SYRINGE Prov:LIZA ALEMAN MD 11/15/16 Lorazepam (Ativan) 2 Mg/1 Ml Vial, 1 MG IV Q4H Y for AIR HUNGER/ANXIETY for 10 Days, VIAL Prov:LIZA ALEMAN MD 11/15/16 Enoxaparin Sodium (Lovenox) 150 Mg/Ml Inj, 130 MG SQ BID for 10 Days Prov:LIZA ALEMAN MD 11/15/16 Ipratropium/Albuterol Sulfate (Iprat-Albut 0.5-3(2.5) mg/3 ml) 3 Ml Ampul.neb, 3 ML AEROSOL QID for 10 Days Prov:LIZA ALEMAN MD 11/15/16 Levofloxacin (Levaquin) 750 Mg Tablet, 750 MG PO DAILY for pna for 7 Days Prov:LIZA ALEMAN MD 11/15/16 Methylprednisolone Sod Succ/Pf (Solu-Medrol 125 mg Vial) 125 Mg/2 Ml Vial, 125 MG IV Q6H for resp failure/pneumonitis for 7 Days Prov:LIZA ALEMAN MD 11/15/16 Vancomycin/0.9 % Sod Chloride (Vanco 1.25 gm/250 ml-0.9% NaCl) 1.25 Gm/250 Ml Plast..bag, 1.25 G IV Q8H for pna for 7 Days Prov:LIZA ALEMAN MD 11/15/16 Kqosmnzslsvs-Xjjt-Datvcdys,Iso (Zosyn 3.375 gm/50 ml Galaxy) 3.375 Gm/50 Ml Froz.piggy, 3.375 G IV Q6H for pna for 7 Days Prov:LIZA ALEMAN MD 11/15/16 Reported Medications Losartan Potassium (Losartan Potassium) 50 Mg Tablet, 50 MG PO DAILY 11/14/16 Tramadol HCl (Tramadol HCl) 50 Mg Tablet, 50-100 MG PO QID Y for PAIN 11/14/16 Isosorbide Mononitrate (Isosorbide Mononitrate ER) 60 Mg Tab.er.24h, 60 MG PO DAILY 11/14/16 Aspirin (Aspirin) 81 Mg Tab.chew, 81 MG PO DAILY 02/07/15 Omeprazole (Omeprazole) 40 Mg Capsule.dr, 40 MG PO DAILY 02/07/15 Metoprolol Succinate (Metoprolol Succinate) 50 Mg Tab.er.24h, 25 MG PO BID 02/07/15 Nitroglycerin (Nitrostat) 0.4 Mg Tablet, 0.4 MG PO PRN 02/07/15 Clonidine HCl (Clonidine HCl) 0.3 Mg Tablet, 0.3 MG PO BID 02/07/15 Discontinued Reported Medications Atorvastatin Calcium (Atorvastatin Calcium) 40 Mg Tablet, 40 MG PO HS 11/14/16 Potassium Chloride (Potassium Chloride) 20 Meq Tab.er.prt, 20 MEQ PO BID 11/14/16 Bumetanide (Bumetanide) 1 Mg Tablet, 1 MG PO DAILY 12/20/15 Minoxidil (Minoxidil) 10 Mg Tablet, 5 MG PO DAILY 02/07/15 Allergies: Coded Allergies: No Known Allergies (Unverified , 11/14/16) Family History FOUND: CAD (father), HI (brother), diabetes (mother and father) Vaccines will call office Social History Smoking Status: Former smoker Substance Use Type: does not use Alcohol Intake: none Marital Status: Sexuality: female partner Housing: house Advance Directives: Yes Full Code, No DPOA for Healthcare Only (Will Sign today ) Review of Systems Constitutional: REPORTS: fatigue, fever, night sweats, weakness ENMT Hearing: DENIES: tinnitus Balance: DENIES: vertigo Sinuses: NOT FOUND: rhinorrhea Mouth/Throat: DENIES: sore throat Cardiovascular chest pain, dyspnea on exertion, orthopnea, paroxysmal nocturnal dysp Pulmonary Respiratory: cough, dyspnea, sputum, tachypnea GI Upper Abdomen: DENIES: nausea, vomiting Lower Abdomen: DENIES: blood in stool, diarrhea Integumentary Skin: DENIES: rash, sores Neurological General: weakness, DENIES: headache, numbness, seizures, syncope All Other Systems All Other Systems: Reviewed (remainder of 10-point ROS Neg.) Physical Exam General General Nourishment: well nourished, well developed, obese Vital Signs Vital Signs Date Time Temp Pulse Resp B/P Pulse Ox O2 Delivery O2 Flow Rate FiO2 11/15/16 10:00 135 65 127/102 96 Bi-pap 80 11/15/16 08:01 98.0 11/14/16 23:16 15.00 Height (Feet): 5 Height (Inches): 7.00 Telemetry Rhythm: Atrial Fibrillation ENMT Brief: NOT FOUND: mucosa moist Neck Brief: FOUND: JVD, NOT FOUND: carotid bruits Respiratory Brief: FOUND: equal bilaterally (diminished), rales (bibasilar rales), NOT FOUND: clear all ball, wheezes Cardiovascular (brief) Cardiac Brief: NOT FOUND: click, gallop, murmur, pedal edema, regular rate, regular rhythm Abdomen (brief) Abdominal Brief: FOUND: BS normo active x4, soft, NOT FOUND: tender Integumentary (brief) Integumentary Brief: FOUND: dry, pink, warm Neurologic RN Documented GCS Eye Opening: Verbal: Motor: Total: Psychiatric (brief) FOUND: alert, attentive, oriented Laboratory Laboratory Tests Test 11/14/16 10:43 11/14/16 10:59 11/14/16 15:25 11/14/16 16:20 Arterial Blood pH 7.460 Arterial Blood Partial Pressure CO2 49MMHG Arterial Blood pO2 at Patient Temp 47MMHG Arterial Blood HCO3 35MEQ/L Arterial Blood Total CO2 36.3MEQ/L Arterial Blood Oxygen Saturation 85.0% Arterial Blood Base Excess 9.5MMOL/L Oxygen Delivery Method (LAB) Bpap, liters Blood Gas Oxygen Liter Flow 10.0 Blood Gas Oxygen Percent Given Blood Gas Vent Rate Blood Gas Tidal Volume ML White Blood Count 7.8T/MM3 Red Blood Count 3.31M/MM3 Hemoglobin 10.5GM/DL Hematocrit 32.2% Mean Corpuscular Volume 97.3UM3 Mean Corpuscular Hemoglobin 31.7UUG Mean Corpuscular Hemoglobin Concent 32.6GM/DL RDW Standard Deviation 52.1FL Platelet Count 219T/MM3 Mean Platelet Volume 10.5UM3 Immature Granulocyte % (Auto) 1.7% Neutrophils (%) (Auto) 70.5% Lymphocytes (%) (Auto) 14.5% Monocytes (%) (Auto) 12.6% Eosinophils (%) (Auto) 0.4% Basophils (%) (Auto) 0.3% Absolute Immature Granulocyte (auto 0.13T/MM3 Absolute Neutrophils (auto) 5.5T/MM3 Absolute Lymphocytes (auto) 1.1T/MM3 Absolute Monocytes (auto) 1.0T/MM3 Absolute Eosinophils (auto) 0.0T/MM3 Absolute Basophils (auto) 0.0T/MM3 Turbidity < 20 Sodium Level 139MEQ/L Potassium Level 3.6MEQ/L Chloride Level 92MEQ/L Carbon Dioxide Level 35MEQ/L Anion Gap 12MEQ/L Blood Urea Nitrogen 23.0MG/DL Creatinine 0.9MG/DL Glomerular Filtration Rate Calc 83 BUN/Creatinine Ratio 26RATIO Glucose Level 132MG/DL Hemoglobin A1c 6.0% Calculated Osmolality 274MOSM/KG Calcium Level 9.3MG/DL Total Bilirubin 3.10MG/DL Icterus Index < 2 Aspartate Amino Transf (AST/SGOT) 125U/L Alanine Aminotransferase (ALT/SGPT) 96U/L Alkaline Phosphatase 145U/L Troponin I 0.060ng/ml 0.128ng/ml JS-Fnx-I-Type Natriuretic Peptide 2050PG/ML Total Protein 6.9G/DL Albumin 3.6G/DL Globulin 3.3G/DL Albumin/Globulin Ratio 1.1RATIO Plasma Lactate 3.3MMOL/L 1.2MMOL/L Procalcitonin 0.27NG/ML Chemistry Specimen Hemolysis < 15 < 15 Adenovirus (PCR) Negative Bordetella parapertussis DNA (PCR) Negative Chlamydia pneumoniae DNA (PCR) Negative Coronavirus Type OC43 (PCR) Negative Coronavirus Type HKU1 (PCR) Negative Coronavirus Type 229E (PCR) Negative Coronavirus Type NL63 (PCR) Negative Human Metapneumovirus (PCR) Negative Influenza Virus Type A (PCR) Negative Influenza Virus Type B (PCR) Negative Mycoplasma pneumoniae (PCR) Negative Parainfluenza Type 1 (PCR) Negative Parainfluenza Type 2 (PCR) Negative Parainfluenza Type 3 (PCR) Negative Parainfluenza Type 4 (PCR) Negative Respiratory Syncytial Virus (PCR) Negative Enterovirus/Rhinovirus (PCR) Negative Test 11/14/16 17:32 11/14/16 19:23 11/14/16 21:36 11/15/16 04:21 Arterial Blood pH 7.460 Arterial Blood Partial Pressure CO2 52MMHG Arterial Blood pO2 at Patient Temp 73MMHG Arterial Blood HCO3 37MEQ/L Arterial Blood Total CO2 38.6MEQ/L Arterial Blood Oxygen Saturation 95.0% Arterial Blood Base Excess 11.3MMOL/L Oxygen Delivery Method (LAB) Bpap, % Blood Gas Oxygen Liter Flow Blood Gas Oxygen Percent Given 80 Blood Gas Vent Rate Blood Gas Tidal Volume ML Urine Collection Type Voided-not cc-midstr Urine Color Yellow Urine Turbidity Clear Urine pH 6.5 Urine Specific [place] 1.015 Urine Protein Negative Urine Glucose (UA) Negative Urine Ketones Negative Urine Blood 1+ Urine Nitrite Negative Urine Bilirubin Negative Urine Urobilinogen 1.0EU/DL Urine Leukocyte Esterase Negative Urine RBC 0-1/HPF Urine WBC None seen/HPF Urine Bacteria None seen Urine Culture Indicated Cult not indicated Troponin I 0.166ng/ml 0.137ng/ml Chemistry Specimen Hemolysis < 15 147 White Blood Count 8.2T/MM3 Red Blood Count 3.07M/MM3 Hemoglobin 9.7GM/DL Hematocrit 29.7% Mean Corpuscular Volume 96.7UM3 Mean Corpuscular Hemoglobin 31.6UUG Mean Corpuscular Hemoglobin Concent 32.7GM/DL RDW Standard Deviation 52.3FL Platelet Count 197T/MM3 Mean Platelet Volume 11.3UM3 Immature Granulocyte % (Auto) % Neutrophils (%) (Auto) % Lymphocytes (%) (Auto) % Monocytes (%) (Auto) % Eosinophils (%) (Auto) % Basophils (%) (Auto) % Absolute Immature Granulocyte (auto T/MM3 Absolute Neutrophils (auto) T/MM3 Absolute Lymphocytes (auto) T/MM3 Absolute Monocytes (auto) T/MM3 Absolute Eosinophils (auto) T/MM3 Absolute Basophils (auto) T/MM3 Neutrophils % (Manual) 69.0% Band Neutrophils % 4.0% Lymphocytes % (Manual) 12.0% Reactive Lymphocytes % 4.0% Monocytes % (Manual) 7.0% Eosinophils % (Manual) 1.0% Metamyelocytes % 1.0% Myelocytes % 2.0% Absolute Neutrophils (Manual) 5.7T/MM3 Band Neutrophils # 0.3T/MM3 Lymphocytes # (Manual) 1.0T/MM3 Reactive Lymphocytes # 0.3T/MM3 Monocytes # (Manual) 0.6T/MM3 Eosinophils # (Manual) 0.1T/MM3 Metamyelocytes # 0.1T/MM3 Myelocytes # 0.2T/MM3 Nucleated Red Blood Cells 2 Poikilocytosis 1+ Anisocytosis 1+ Ovalocytes 1+ Schistocytes 1+ Red Cell Morphology Comment Abnormal Turbidity < 20 Sodium Level 137MEQ/L Potassium Level 4.3MEQ/L Chloride Level 95MEQ/L Carbon Dioxide Level 33MEQ/L Anion Gap 9MEQ/L Blood Urea Nitrogen 21.0MG/DL Creatinine 0.7MG/DL Glomerular Filtration Rate Calc 111 BUN/Creatinine Ratio 30RATIO Glucose Level 130MG/DL Calculated Osmolality 269MOSM/KG Calcium Level 9.0MG/DL Magnesium Level 2.1MG/DL Total Bilirubin 2.30MG/DL Icterus Index < 2 Aspartate Amino Transf (AST/SGOT) 86U/L Alanine Aminotransferase (ALT/SGPT) 75U/L Alkaline Phosphatase 113U/L Total Protein 6.8G/DL Albumin 3.4G/DL Globulin 3.4G/DL Albumin/Globulin Ratio 1.0RATIO Test 11/15/16 09:24 11/15/16 10:41 Vancomycin Level Trough 15.10UG/ML Arterial Blood pH 7.480 Arterial Blood Partial Pressure CO2 49MMHG Arterial Blood pO2 at Patient Temp 93MMHG Arterial Blood HCO3 37MEQ/L Arterial Blood Total CO2 38.0MEQ/L Arterial Blood Oxygen Saturation 98.0% Arterial Blood Base Excess 11.4MMOL/L Oxygen Delivery Method (LAB) Bpap, % Blood Gas Oxygen Liter Flow Blood Gas Oxygen Percent Given Blood Gas Vent Rate Blood Gas Tidal Volume ML Laboratory Tests Test 11/14/16 10:43 11/14/16 10:59 11/14/16 15:25 11/14/16 16:20 Arterial Blood pH 7.460 Arterial Blood Partial Pressure CO2 49MMHG Arterial Blood pO2 at Patient Temp 47MMHG Arterial Blood HCO3 35MEQ/L Arterial Blood Total CO2 36.3MEQ/L Arterial Blood Oxygen Saturation 85.0% Arterial Blood Base Excess 9.5MMOL/L Oxygen Delivery Method (LAB) Bpap, liters Blood Gas Oxygen Liter Flow 10.0 Blood Gas Oxygen Percent Given Blood Gas Vent Rate Blood Gas Tidal Volume ML White Blood Count 7.8T/MM3 Red Blood Count 3.31M/MM3 Hemoglobin 10.5GM/DL Hematocrit 32.2% Mean Corpuscular Volume 97.3UM3 Mean Corpuscular Hemoglobin 31.7UUG Mean Corpuscular Hemoglobin Concent 32.6GM/DL RDW Standard Deviation 52.1FL Platelet Count 219T/MM3 Mean Platelet Volume 10.5UM3 Immature Granulocyte % (Auto) 1.7% Neutrophils (%) (Auto) 70.5% Lymphocytes (%) (Auto) 14.5% Monocytes (%) (Auto) 12.6% Eosinophils (%) (Auto) 0.4% Basophils (%) (Auto) 0.3% Absolute Immature Granulocyte (auto 0.13T/MM3 Absolute Neutrophils (auto) 5.5T/MM3 Absolute Lymphocytes (auto) 1.1T/MM3 Absolute Monocytes (auto) 1.0T/MM3 Absolute Eosinophils (auto) 0.0T/MM3 Absolute Basophils (auto) 0.0T/MM3 Turbidity < 20 Sodium Level 139MEQ/L Potassium Level 3.6MEQ/L Chloride Level 92MEQ/L Carbon Dioxide Level 35MEQ/L Anion Gap 12MEQ/L Blood Urea Nitrogen 23.0MG/DL Creatinine 0.9MG/DL Glomerular Filtration Rate Calc 83 BUN/Creatinine Ratio 26RATIO Glucose Level 132MG/DL Hemoglobin A1c 6.0% Calculated Osmolality 274MOSM/KG Calcium Level 9.3MG/DL Total Bilirubin 3.10MG/DL Icterus Index < 2 Aspartate Amino Transf (AST/SGOT) 125U/L Alanine Aminotransferase (ALT/SGPT) 96U/L Alkaline Phosphatase 145U/L Troponin I 0.060ng/ml 0.128ng/ml OT-Tty-W-Type Natriuretic Peptide 2050PG/ML Total Protein 6.9G/DL Albumin 3.6G/DL Globulin 3.3G/DL Albumin/Globulin Ratio 1.1RATIO Plasma Lactate 3.3MMOL/L 1.2MMOL/L Procalcitonin 0.27NG/ML Chemistry Specimen Hemolysis < 15 < 15 Adenovirus (PCR) Negative Bordetella parapertussis DNA (PCR) Negative Chlamydia pneumoniae DNA (PCR) Negative Coronavirus Type OC43 (PCR) Negative Coronavirus Type HKU1 (PCR) Negative Coronavirus Type 229E (PCR) Negative Coronavirus Type NL63 (PCR) Negative Human Metapneumovirus (PCR) Negative Influenza Virus Type A (PCR) Negative Influenza Virus Type B (PCR) Negative Mycoplasma pneumoniae (PCR) Negative Parainfluenza Type 1 (PCR) Negative Parainfluenza Type 2 (PCR) Negative Parainfluenza Type 3 (PCR) Negative Parainfluenza Type 4 (PCR) Negative Respiratory Syncytial Virus (PCR) Negative Enterovirus/Rhinovirus (PCR) Negative Test 11/14/16 17:32 11/14/16 19:23 11/14/16 21:36 11/15/16 04:21 Arterial Blood pH 7.460 Arterial Blood Partial Pressure CO2 52MMHG Arterial Blood pO2 at Patient Temp 73MMHG Arterial Blood HCO3 37MEQ/L Arterial Blood Total CO2 38.6MEQ/L Arterial Blood Oxygen Saturation 95.0% Arterial Blood Base Excess 11.3MMOL/L Oxygen Delivery Method (LAB) Bpap, % Blood Gas Oxygen Liter Flow Blood Gas Oxygen Percent Given 80 Blood Gas Vent Rate Blood Gas Tidal Volume ML Urine Collection Type Voided-not cc-midstr Urine Color Yellow Urine Turbidity Clear Urine pH 6.5 Urine Specific [place] 1.015 Urine Protein Negative Urine Glucose (UA) Negative Urine Ketones Negative Urine Blood 1+ Urine Nitrite Negative Urine Bilirubin Negative Urine Urobilinogen 1.0EU/DL Urine Leukocyte Esterase Negative Urine RBC 0-1/HPF Urine WBC None seen/HPF Urine Bacteria None seen Urine Culture Indicated Cult not indicated Troponin I 0.166ng/ml 0.137ng/ml Chemistry Specimen Hemolysis < 15 147 White Blood Count 8.2T/MM3 Red Blood Count 3.07M/MM3 Hemoglobin 9.7GM/DL Hematocrit 29.7% Mean Corpuscular Volume 96.7UM3 Mean Corpuscular Hemoglobin 31.6UUG Mean Corpuscular Hemoglobin Concent 32.7GM/DL RDW Standard Deviation 52.3FL Platelet Count 197T/MM3 Mean Platelet Volume 11.3UM3 Immature Granulocyte % (Auto) % Neutrophils (%) (Auto) % Lymphocytes (%) (Auto) % Monocytes (%) (Auto) % Eosinophils (%) (Auto) % Basophils (%) (Auto) % Absolute Immature Granulocyte (auto T/MM3 Absolute Neutrophils (auto) T/MM3 Absolute Lymphocytes (auto) T/MM3 Absolute Monocytes (auto) T/MM3 Absolute Eosinophils (auto) T/MM3 Absolute Basophils (auto) T/MM3 Neutrophils % (Manual) 69.0% Band Neutrophils % 4.0% Lymphocytes % (Manual) 12.0% Reactive Lymphocytes % 4.0% Monocytes % (Manual) 7.0% Eosinophils % (Manual) 1.0% Metamyelocytes % 1.0% Myelocytes % 2.0% Absolute Neutrophils (Manual) 5.7T/MM3 Band Neutrophils # 0.3T/MM3 Lymphocytes # (Manual) 1.0T/MM3 Reactive Lymphocytes # 0.3T/MM3 Monocytes # (Manual) 0.6T/MM3 Eosinophils # (Manual) 0.1T/MM3 Metamyelocytes # 0.1T/MM3 Myelocytes # 0.2T/MM3 Nucleated Red Blood Cells 2 Poikilocytosis 1+ Anisocytosis 1+ Ovalocytes 1+ Schistocytes 1+ Red Cell Morphology Comment Abnormal Turbidity < 20 Sodium Level 137MEQ/L Potassium Level 4.3MEQ/L Chloride Level 95MEQ/L Carbon Dioxide Level 33MEQ/L Anion Gap 9MEQ/L Blood Urea Nitrogen 21.0MG/DL Creatinine 0.7MG/DL Glomerular Filtration Rate Calc 111 BUN/Creatinine Ratio 30RATIO Glucose Level 130MG/DL Calculated Osmolality 269MOSM/KG Calcium Level 9.0MG/DL Total Bilirubin 2.30MG/DL Icterus Index < 2 Aspartate Amino Transf (AST/SGOT) 86U/L Alanine Aminotransferase (ALT/SGPT) 75U/L Alkaline Phosphatase 113U/L Total Protein 6.8G/DL Albumin 3.4G/DL Globulin 3.4G/DL Albumin/Globulin Ratio 1.0RATIO Test 11/15/16 09:24 11/15/16 10:41 Vancomycin Level Trough 15.10UG/ML Arterial Blood pH 7.480 Arterial Blood Partial Pressure CO2 49MMHG Arterial Blood pO2 at Patient Temp 93MMHG Arterial Blood HCO3 37MEQ/L Arterial Blood Total CO2 38.0MEQ/L Arterial Blood Oxygen Saturation 98.0% Arterial Blood Base Excess 11.4MMOL/L Oxygen Delivery Method (LAB) Bpap, % Blood Gas Oxygen Liter Flow Blood Gas Oxygen Percent Given Blood Gas Vent Rate Blood Gas Tidal Volume ML EKG Atrial Fibrillation Radiology DATE OF EXAM: 11/15/16 ORDERING DOCTOR: ELINOR VEGA DO (HOSPITALIST) TYPE OF EXAM: CHEST 1 VIEW REASON FOR EXAM: respiratory distress EXAM: CHEST 1 VIEW COMPARISON: 11/14/2016. 10/24/2015. HISTORY: ITS.REASON: respiratory distress . Crackles in bilateral upper lobes. Productive loose cough. FINDINGS:Study is limited due to motion. The heart is enlarged. The pulmonary vascularity is prominent and indistinct. Persistent ill-defined opacities are seen at the perihilar regions and lung bases. There is no evidence for pleural effusion. There is no evidence for a pneumothorax. No osseous abnormalities are identified. IMPRESSION: 1. Persistent cardio megaly. 2. Perihilar alveolar and interstitial opacifications again noted which is similar to mildly improved compared to the prior exam; however, study is limited due to motion. LOCATION OF DICTATION: [facility] – [place] Impression/Recommendation Problems: (1) Atrial fibrillation with RVR Status: Acute Assessment & Plan: Cardizem bolus of 32mg IV given, Cardizem drip run to keep rate <100. Now in SR, Start Sotalol 40mg every morning and evening Lovenox 1mg/kg SQ BID for anticoagulation. (2) Elevated troponin Status: Acute Assessment & Plan: 1) 0.060, 2) 0.128, 3) 0.166, 4)0.137. Likely elevated due to lungs (3) Severe sepsis Status: Acute Assessment & Plan: per attending (4) Bilateral pneumonia Status: Acute Assessment & Plan: per attending (5) Acute on chronic respiratory failure with hypoxemia Status: Acute Assessment & Plan: per attending (6) Coronary artery disease Status: Chronic (7) Hypertension Status: Chronic (8) Dyslipidemia Status: Chronic Recommendation AFib RVR: Cardizem bolus of 32mg IV given, Cardizem drip run to keep rate <100. Now in SR, Start Sotalol 40mg every morning and evening. Lovenox 1mg/kg SQ BID for anticoagulation. Lasix 40mg IV x1 now Thank you for allowing us to participate in the care of this patient, we will follow along with you. DENIS ALONSO MD 11/20/16 1145: Past Medical History Current Medications Home Meds Active Scripts Diltiazem HCl in 0.9% NaCl (Diltiazem HCl-Ns 125 mg/125 ml) 125 Mg/125 Ml Plast..bag, 5 MG IV hr for afib for 1 Day Prov:LIZA ALEMAN MD 11/15/16 Guaifenesin/Dextromethorphan (Mucinex Dm ER 600-30 mg Tablet) 1 Each Tab.er.12h , 1 TAB PO Q12HR Y for COUGH for 10 Days, #20 TAB Prov:LIZA ALEMAN MD 11/15/16 Budesonide (Pulmicort) 0.5 Mg/2 Ml Inha, 0.5 MG AEROSOL BID for 10 Days, INHALER Prov:LIZA ALEMAN MD 11/15/16 Morphine Sulfate (Morphine Sulfate) 2 Mg/1 Ml Syringe, 2 MG IV Q2H Y for AGITATION/AIR HUNGER/PAIN for 10 Days, SYRINGE Prov:LIZA ALEMAN MD 11/15/16 Lorazepam (Ativan) 2 Mg/1 Ml Vial, 1 MG IV Q4H Y for AIR HUNGER/ANXIETY for 10 Days, VIAL Prov:LIZA ALEMAN MD 11/15/16 Enoxaparin Sodium (Lovenox) 150 Mg/Ml Inj, 130 MG SQ BID for 10 Days Prov:LIZA ALEMAN MD 11/15/16 Ipratropium/Albuterol Sulfate (Iprat-Albut 0.5-3(2.5) mg/3 ml) 3 Ml Ampul.neb, 3 ML AEROSOL QID for 10 Days Prov:LIZA ALEMAN MD 11/15/16 Levofloxacin (Levaquin) 750 Mg Tablet, 750 MG PO DAILY for pna for 7 Days Prov:LIZA ALEMAN MD 11/15/16 Methylprednisolone Sod Succ/Pf (Solu-Medrol 125 mg Vial) 125 Mg/2 Ml Vial, 125 MG IV Q6H for resp failure/pneumonitis for 7 Days Prov:LIZA ALEMAN MD 11/15/16 Vancomycin/0.9 % Sod Chloride (Vanco 1.25 gm/250 ml-0.9% NaCl) 1.25 Gm/250 Ml Plast..bag, 1.25 G IV Q8H for pna for 7 Days Prov:LIZA ALEMAN MD 11/15/16 Jbuoefflqrsb-Audr-Fyyzokzq,Iso (Zosyn 3.375 gm/50 ml Galaxy) 3.375 Gm/50 Ml Froz.piggy, 3.375 G IV Q6H for pna for 7 Days Prov:LIZA ALEMAN MD 11/15/16 Reported Medications Losartan Potassium (Losartan Potassium) 50 Mg Tablet, 50 MG PO DAILY 11/14/16 Tramadol HCl (Tramadol HCl) 50 Mg Tablet, 50-100 MG PO QID Y for PAIN 11/14/16 Isosorbide Mononitrate (Isosorbide Mononitrate ER) 60 Mg Tab.er.24h, 60 MG PO DAILY 11/14/16 Aspirin (Aspirin) 81 Mg Tab.chew, 81 MG PO DAILY 02/07/15 Omeprazole (Omeprazole) 40 Mg Capsule.dr, 40 MG PO DAILY 02/07/15 Metoprolol Succinate (Metoprolol Succinate) 50 Mg Tab.er.24h, 25 MG PO BID 02/07/15 Nitroglycerin (Nitrostat) 0.4 Mg Tablet, 0.4 MG PO PRN 02/07/15 Clonidine HCl (Clonidine HCl) 0.3 Mg Tablet, 0.3 MG PO BID 02/07/15 Discontinued Reported Medications Atorvastatin Calcium (Atorvastatin Calcium) 40 Mg Tablet, 40 MG PO HS 11/14/16 Potassium Chloride (Potassium Chloride) 20 Meq Tab.er.prt, 20 MEQ PO BID 11/14/16 Bumetanide (Bumetanide) 1 Mg Tablet, 1 MG PO DAILY 12/20/15 Minoxidil (Minoxidil) 10 Mg Tablet, 5 MG PO DAILY 02/07/15 Allergies: Coded Allergies: No Known Allergies (Unverified , 11/14/16) Impression/Recommendation Recommendation After examining the patient I agree with the above assessment. I am involved in the formulation of the patient's plan of care. ROBERT TANNER APRN Nov 15, 2016 11:12 DENIS ALONSO MD Nov 20, 2016 11:45
[2016-11-15 12:01] LABS: THYROID STIM HORMONE-TSH 0.82 MIU/L (0.47-4.68)
--- NOTE | 2016-11-15 12:13 | PNPDOC ---
Subjective Date DATE: 11/15/16 TIME: 11:47 Subjective Laboratory reports that he feels like he is breathing better today although nursing notes that if he is off BiPAP for more than a short period of time his oxygen saturation drops into the 40s and that he becomes cyanotic and skin color is dusky. He continues to have frequent episodes of cough productive of thick and occasionally blood-tinged sputum. Morphine was needed overnight for air hunger and Ativan used to time for anxiety and patient's poor tolerance of BiPAP. Little history can be obtained directly from the patient but family reports he had some preceding chest discomfort/pain with ambulation for which he was using nitroglycerin at home. When asked if he is having chest pain currently he rubbed sternum and nodded yes when asked if having palpitations. His describes his legs trembling over the weekend causing inability to ambulate. Coughing led to lightheadedness and tunnel vision with a fall prior to admission. reports that the patient slept fairly well last night with BiPAP. Converted to atrial fibrillation with rapid ventricular response about 6:30 this morning per nursing report. Objective Vital Signs Vital signs Vital Signs Date Time Temp Pulse Resp B/P Pulse Ox O2 Delivery O2 Flow Rate FiO2 11/15/16 11:42 83 11/15/16 11:39 93 Spontaneous/Timed 75 11/15/16 11:35 37 11/15/16 10:00 127/102 11/15/16 08:01 98.0 11/14/16 23:16 15.00 I/O 680/2331 EXAM General-obese male, alert, tends BiPAP mask intermittently HEENT-sclera anicteric, conjugate gaze Lungs-diminished breath sounds throughout, coarse sounds at the bases/laterally , no wheezing present, coarse cough Cardiac-irregular rhythm, S1-S2 Abd-soft, nontender, bowel sounds not audible Ext-without edema, both Slightly tender to palpation with a firm area palpable lateral left so just above the ankle Neuro-moving extremities spontaneously/symmetrically Psych-anxious Telemetry Rhythm: Atrial Fibrillation Height (Feet): 5 Height (Inches): 7.00 Weight (Kilograms): 129.400 Laboratory Laboratory Laboratory Tests 11/14/16 10:59 11/15/16 04:21 Hemoglobin A1c 6.0, bilirubin 2.3, AST 86, ALT 75, alkaline phosphatase 113 Troponin 0.06-0.123-0.166-0.137 Laboratory Tests 11/14/16 10:59 11/15/16 04:21 Segs 69, bands 4, lymphocytes 12, reactive lymphs 4, monos 7 ABG this morning on BiPAP with FiO2 80%: 7.48/49/93/37 oxygen saturation 98% EKG Twelve-lead EKG reviewed by myself demonstrating atrial fibrillation with rapid ventricular response, rate 112 (although on bedside telemetry rates been up to 135 roughly) low voltage and slow R-wave progression but no acute ST-T wave abnormalities present Microbiology Microbiology Microbiology Date/Time Source Procedure Growth Status 11/14/16 10:59 Peripheral/Iv Start Blood Culture - Preliminary NO GROWTH AFTER 24 HOURS Resulted 11/14/16 10:57 Peripheral/Iv Start Blood Culture - Preliminary NO GROWTH AFTER 24 HOURS Resulted 11/15/16 10:45 Sputum Expectorated Sputum Gram Stain Pending Resulted 11/15/16 10:45 Sputum Expectorated Sputum Sputum Culture - Preliminary CULTURE INITIATED - RESULTS PENDING Resulted 11/14/16 19:23 Sputum Expectorated Sputum Gram Stain Pending Resulted 11/14/16 19:23 Sputum Expectorated Sputum Sputum Culture - Preliminary CULTURE INITIATED - RESULTS PENDING Resulted Radiology CTA reviewed by myself demonstrating diffuse groundglass and consolidating infiltrates without evidence of PE. No adenopathy reported. Today's chest x-ray (portable) also reviewed by myself demonstrating extensive bilateral infiltrates. Sepsis Diagnostic Criteria Severe Sepsis SpO2 <90% or ventilated, Lactate >=2.0 mg/dL Assessment & Plan Problems: (1) Acute on chronic respiratory failure with hypoxemia Status: Acute (2) Severe sepsis with acute organ dysfunction Status: Acute Assessment & Plan: Manifestations of severe sepsis include the following- 1. Bilateral pneumonia 2. Acute respiratory failure with hypoxia requiring BiPAP 3. Tachycardia-108 4. Elevated venous lactate, 3.3 on admission 5. Organ dysfunction including elevated LFTs, hyperglycemia in the absence of diabetes (3) Bilateral pneumonia Status: Acute Qualifiers: Pneumonia type: due to unspecified organism Lung location: unspecified part of lung Qualified Codes: J18.9 - Pneumonia, unspecified organism (4) Atrial fibrillation with RVR Status: Acute (5) Coronary artery disease Status: Chronic (6) Hypertension Status: Chronic (7) On home O2 Status: Chronic Assessment & Plan: 2-3 Liters (8) Dyslipidemia Status: Chronic (9) Chronic back pain Status: Chronic (10) GERD (gastroesophageal reflux disease) Status: Chronic (11) History of CVA (cerebrovascular accident) Status: Resolved (12) Hypersensitivity pneumonitis Status: Chronic (13) Obstructive sleep apnea Status: Chronic Assessment & Plan: Outpatient evaluation underway (14) Anemia Status: Chronic (15) Abnormal liver enzymes Status: Acute (16) Elevated troponin Status: Acute Assessment & Plan: Probable type II NV Assessment Mr. Ramírez is critically ill with acute hypoxic respiratory failure complicated by atrial fibrillation with rapid ventricular response. He has mild hypercarbia of uncertain duration but likely due to his chronic underlying lung disease. There is evidence of severe sepsis as noted above. Outpatient records indicate concerned that hypersensitivity pneumonitis potentially reactivated and steroids were prescribed earlier this week although had not yet been initiated per family report. Solu-Medrol added to regimen previously started. Discussed management options with the patient and family-they've elected to transfer to [facility] to permit involvement of the special assets officer. Continue antibiotics with Levaquin, Zosyn, vancomycin. Sputum culture/blood cultures pending. Respiratory viral panel negative. Blood gases as noted above on BiPAP. Dr. Gonzalez consulted this morning for assistance managing acute atrial fibrillation/tachycardia arrhythmia. Diltiazem drip initiated with heart rate now under 100. Plan/Intensity of Service Patient critically ill-time [id number]; [id number], [id number] DVT Prophylaxis: Lovenox Code Status Full Code Hospital Course Summary Disclaimer The hospital course summary below is not to be considered part of the above Progress Note. Hospital Course Summary 11/14/16- Admit We will admit patient to inpatient status to the ICU under the care of Dr. West for severe sepsis with organ dysfunction, bilateral pneumonia, acute respiratory failure with hypoxia. Was started on IV Levaquin while in the emergency room. We will also add IV vancomycin and consult pharmacy for Vancomycin dosing. Recheck venous lactate at 1530 as per sepsis protocol. In light of acute hemoptysis, accompanied with significant hypoxia, we will obtain a CT to rule out pulmonary emboli. Will start patient on Lovenox 40 grams subcutaneous daily for prophylactic dosing. However, will change dosing If acute emboli is present. Monitor patient on cardiac telemetry and obtain serial troponins to rule out cardiac organ dysfunction or ischemia DuoNeb 4 times a day and Pulmicort twice a day. Will continue patient on BiPAP, and wean down as able. Ativan and morphine available for pain and anxiety Given findings of hyperglycemia will obtain a hemoglobin A1c to rule out underlying diabetes. Patient may have cardiac diet Will review all home medications with Dr. West prior to ordering. Will recheck CBC and CMP tomorrow morning to follow blood counts, renal function , electrolytes and LFTs. If liver enzymes continue to be elevated may need to consider further hepatic workup. May consider holding patient's Lipitor as this may influence liver function. Will discuss further plan of care and orders with Dr. West Again, patient does wish to be a full code and requests intubation if respiratory status declines during hospitalization. At time of discharge his medical care will return to primary care Dr. Barr and precision assembly inspector, Dr. Thibodeaux 11/15/16 Mr. Ramírez is critically ill with acute hypoxic respiratory failure complicated by atrial fibrillation with rapid ventricular response. He has mild hypercarbia of uncertain duration but likely due to his chronic underlying lung disease. There is evidence of severe sepsis as noted above. Outpatient records indicate concerned that hypersensitivity pneumonitis potentially reactivated and steroids were prescribed earlier this week although had not yet been initiated per family report. Solu-Medrol added to regimen previously started. Discussed management options with the patient and family-they've elected to transfer to [facility] to permit involvement of the special assets officer. Continue antibiotics with Levaquin, Zosyn, vancomycin. Sputum culture/blood cultures pending. Respiratory viral panel negative. Blood gases as noted above on BiPAP. Dr. Gonzalez consulted this morning for assistance managing acute atrial fibrillation/tachycardia arrhythmia. Diltiazem drip initiated with heart rate now under 100. Transfer to [facility]. LIZA ALEMAN MD Nov 15, 2016 11:50
[2016-11-15] MEDS ORDERED: LEVOFLOXACIN 750 MG TABLET PO ONE (12:15)
[2016-11-15] MEDS ORDERED: PIPE3.379 IV (12:32)
[2016-11-15] MEDS ORDERED: [UNRECOGNIZED DRUG - CODE] IV (12:32)
[2016-11-15] MEDS ORDERED: LORA2VIA34 IV (12:32)
[2016-11-15] MEDS ORDERED: METH125V14 IV (12:32)
[2016-11-15] MEDS ORDERED: ENOX150D SQ (12:32)
[2016-11-15] MEDS ORDERED: MORP2SYR2 IV (12:32)
[2016-11-15] MEDS ORDERED: GUAI-782 PO (12:32)
[2016-11-15] MEDS ORDERED: VANC1.254 IV (12:32)
[2016-11-15] MEDS ORDERED: IPRA3AMP AEROSOL (12:32)
[2016-11-15] MEDS ORDERED: LEVO750T20 PO (12:32)
[2016-11-15] MEDS ORDERED: BUDE0.5A AEROSOL (12:32)
--- NOTE | 2016-11-15 13:40 | NUR ---
CHANGE IN RN REPORT GIVEN TO [facility] WHO ASSUMED CARE AT 1300.
[2016-11-15] MEDS ORDERED: FUROSEMIDE 40 MG/4 ML INJECTION IV ONE (14:00)
[2016-11-15] MEDS: SOTALOL 80 MG TABLET PO SCH ×2 (15:43→17:00)
--- NOTE | 2016-11-15 15:44 | DI ---
Indication: ITS.REASON: hemoptysis, hypoxia PROCEDURE: CTA PULMONARY EMBOLI: Encounter: Initial Comparison: None Technique: Axial CT pulmonary angiographic phase images were performed through the chest after the administration of intravenous contrast. Coronal and Sagittal MIP reconstructed images were created and reviewed. Automated Exposure Control and Iterative Reconstruction dose reducing techniques were utilized. Contrast: Omnipaque 350 74 mL Findings: Pulmonary arteries: Exam is limited by severe motion artifact and contrast bolus timing. Contrast bolus is diagnostic to the interlobar pulmonary arterial level. No large filling defects or saddle embolus. The segmental and subsegmental pulmonary cannot be well evaluated due to the motion artifact. Other findings: Severe diffuse airspace consolidation with groundglass opacities and air bronchograms. No gross pneumothorax or significant pleural effusions. The central airways are patent. No axillary or mediastinal adenopathy. Heart is enlarged. The upper abdomen shows metal artifact in the left upper quadrant and surgical changes. Impression: Limited exam. No large or saddle embolus. Severe multifocal airspace disease could be due to infection or edema. There is a preliminary report by [facility] radi[facility]. .
--- NOTE | 2016-11-15 18:45 | NUR ---
REPORT REPORT CALLED TO SF
--- NOTE | 2016-11-15 19:35 | NUR ---
TRANSFER PT TRANSFERRED TO [facility] PER EMS. PT IS AWAKE AND TALKING. PT REPORTS ONLY SOME DISCOMFORT IN HIS BACK WHICH PT REPORTS IS NOT NEW AND DENIES NEED FOR ANYTHING. PT CONTINUES TO HAVE A PRODUCTIVE COUGH. WHEN PT IS COUGHING SPO2 WILL DROP INTO THE 80'S AND HEART RATE WILL INCREASE TO 120'S. PT IS IVL. BIPAP SENT WITH EMS FOR PT TO USE. FAMILY AWARE
--- NOTE | 2016-11-15 21:24 | DSPDOC ---
General Date Date DATE: 11/15/16 TIME: 21:05 Attending Physician Claudia West DO (HOSPITALIST) Admitting Physician Claudia West DO (HOSPITALIST) Consulting Physician Markos Alonso MD Admitting Diagnosis bilateral pneumonia Discharge Diagnosis 1. Acute on chronic hypoxic/hypercarbic respiratory failure 2. Severe sepsis 3. Pneumonia, bilateral 4. Atrial fibrillation with rapid ventricular response 5. Hypersensitivity pneumonitis 6. Obstructive sleep apnea 7. Coronary artery disease 8. Hypertension 9. Hyperlipidemia 10. History CVA 11. Pulmonary hypertension - Procedures Echocardiogram on 11/14: 1. Normal LV systolic function with ejection fraction of 69%. 2. Technically difficult study. 3. Mild left ventricular hypertrophy. 4. Mild left atrial dilation. 5. Mild left ventricular dilation. 6. Aortic sclerosis. 7. Trace of mitral regurgitation. 8. Moderate tricuspid regurgitation with moderate pulmonary hypertension with estimated pulmonary artery systolic pressure of 50. Laboratory Laboratory Tests Test 11/14/16 10:43 11/14/16 10:59 11/14/16 15:25 11/14/16 16:20 Arterial Blood pH 7.460 (7.350-7.450) Arterial Blood Partial Pressure CO2 49MMHG (34-45) Arterial Blood pO2 at Patient Temp 47MMHG (80-100) Arterial Blood HCO3 35MEQ/L (22-26) Arterial Blood Total CO2 36.3MEQ/L (23-27) Arterial Blood Oxygen Saturation 85.0% (95.0-98.0) Arterial Blood Base Excess 9.5MMOL/L (-2.0-2.0) Oxygen Delivery Method (LAB) Bpap, liters Blood Gas Oxygen Liter Flow 10.0 Blood Gas Oxygen Percent Given Blood Gas Vent Rate (0-30) Blood Gas Tidal Volume ML (0-1200) White Blood Count 7.8T/MM3 (4.5-11.0) Red Blood Count 3.31M/MM3 (4.50-5.90) Hemoglobin 10.5GM/DL (13.5-17.5) Hematocrit 32.2% (41-53) Mean Corpuscular Volume 97.3UM3 (80-100) Mean Corpuscular Hemoglobin 31.7UUG (26-34) Mean Corpuscular Hemoglobin Concent 32.6GM/DL (31-37) RDW Standard Deviation 52.1FL (36.9-50.2) Platelet Count 219T/MM3 (130-400) Mean Platelet Volume 10.5UM3 (9.4-12.4) Immature Granulocyte % (Auto) 1.7% (0.0-0.5) Neutrophils (%) (Auto) 70.5% (33-66) Lymphocytes (%) (Auto) 14.5% (23-45) Monocytes (%) (Auto) 12.6% (0-9.0) Eosinophils (%) (Auto) 0.4% (0-4) Basophils (%) (Auto) 0.3% (0-2) Absolute Immature Granulocyte (auto 0.13T/MM3 (0.00-0.03) Absolute Neutrophils (auto) 5.5T/MM3 (1.8-7.7) Absolute Lymphocytes (auto) 1.1T/MM3 (1-4.8) Absolute Monocytes (auto) 1.0T/MM3 (0-0.8) Absolute Eosinophils (auto) 0.0T/MM3 (0-0.5) Absolute Basophils (auto) 0.0T/MM3 (0-0.2) Turbidity < 20 (0-20) Sodium Level 139MEQ/L (134-144) Potassium Level 3.6MEQ/L (3.6-5) Chloride Level 92MEQ/L (98-107) Carbon Dioxide Level 35MEQ/L (22-30) Anion Gap 12MEQ/L (5-15) Blood Urea Nitrogen 23.0MG/DL (9-20) Creatinine 0.9MG/DL (0.8-1.5) Glomerular Filtration Rate Calc 83 BUN/Creatinine Ratio 26RATIO (6-26) Glucose Level 132MG/DL (75-110) Hemoglobin A1c 6.0% (6.1-7.9) Calculated Osmolality 274MOSM/KG (261-280) Calcium Level 9.3MG/DL (8.4-10.2) Total Bilirubin 3.10MG/DL (0.20-1.30) Icterus Index < 2 (0-7) Aspartate Amino Transf (AST/SGOT) 125U/L (17-59) Alanine Aminotransferase (ALT/SGPT) 96U/L (21-72) Alkaline Phosphatase 145U/L (38-126) Troponin I 0.060ng/ml (0-0.12) 0.128ng/ml (0-0.12) LQ-Jlc-F-Type Natriuretic Peptide 2050PG/ML (0-175) Total Protein 6.9G/DL (6.3-8.2) Albumin 3.6G/DL (3.5-5.0) Globulin 3.3G/DL (2.4-3.6) Albumin/Globulin Ratio 1.1RATIO (1.1-2.2) Plasma Lactate 3.3MMOL/L (0.6-2.2) 1.2MMOL/L (0.6-2.2) Procalcitonin 0.27NG/ML Chemistry Specimen Hemolysis < 15 (0-25) < 15 (0-25) Adenovirus (PCR) Negative (NEGATIVE) Bordetella parapertussis DNA (PCR) Negative (NEGATIVE) Chlamydia pneumoniae DNA (PCR) Negative (NEGATIVE) Coronavirus Type OC43 (PCR) Negative (NEGATIVE) Coronavirus Type HKU1 (PCR) Negative (NEGATIVE) Coronavirus Type 229E (PCR) Negative (NEGATIVE) Coronavirus Type NL63 (PCR) Negative (NEGATIVE) Human Metapneumovirus (PCR) Negative (NEGATIVE) Influenza Virus Type A (PCR) Negative (NEGATIVE) Influenza Virus Type B (PCR) Negative (NEGATIVE) Mycoplasma pneumoniae (PCR) Negative (NEGATIVE) Parainfluenza Type 1 (PCR) Negative (NEGATIVE) Parainfluenza Type 2 (PCR) Negative (NEGATIVE) Parainfluenza Type 3 (PCR) Negative (NEGATIVE) Parainfluenza Type 4 (PCR) Negative (NEGATIVE) Respiratory Syncytial Virus (PCR) Negative (NEGATIVE) Enterovirus/Rhinovirus (PCR) Negative (NEGATIVE) Test 11/14/16 17:32 11/14/16 19:23 11/14/16 21:36 11/15/16 04:21 Arterial Blood pH 7.460 (7.350-7.450) Arterial Blood Partial Pressure CO2 52MMHG (34-45) Arterial Blood pO2 at Patient Temp 73MMHG (80-100) Arterial Blood HCO3 37MEQ/L (22-26) Arterial Blood Total CO2 38.6MEQ/L (23-27) Arterial Blood Oxygen Saturation 95.0% (95.0-98.0) Arterial Blood Base Excess 11.3MMOL/L (-2.0-2.0) Oxygen Delivery Method (LAB) Bpap, % Blood Gas Oxygen Liter Flow Blood Gas Oxygen Percent Given 80 Blood Gas Vent Rate (0-30) Blood Gas Tidal Volume ML (0-1200) Urine Collection Type Voided-not cc-midstr Urine Color Yellow (YELLOW) Urine Turbidity Clear (CLEAR) Urine pH 6.5 (5.0-8.0) Urine Specific [place] 1.015 (1.015-1.025) Urine Protein Negative (NEGATIVE) Urine Glucose (UA) Negative (NEGATIVE) Urine Ketones Negative (NEGATIVE) Urine Blood 1+ (NEGATIVE) Urine Nitrite Negative (NEGATIVE) Urine Bilirubin Negative (NEGATIVE) Urine Urobilinogen 1.0EU/DL (NORMAL) Urine Leukocyte Esterase Negative (NEGATIVE) Urine RBC 0-1/HPF (0-3) Urine WBC None seen/HPF (0-5) Urine Bacteria None seen (NEGATIVE) Urine Culture Indicated Cult not indicated Troponin I 0.166ng/ml (0-0.12) 0.137ng/ml (0-0.12) Chemistry Specimen Hemolysis < 15 (0-25) 147 (0-25) White Blood Count 8.2T/MM3 (4.5-11.0) Red Blood Count 3.07M/MM3 (4.50-5.90) Hemoglobin 9.7GM/DL (13.5-17.5) Hematocrit 29.7% (41-53) Mean Corpuscular Volume 96.7UM3 (80-100) Mean Corpuscular Hemoglobin 31.6UUG (26-34) Mean Corpuscular Hemoglobin Concent 32.7GM/DL (31-37) RDW Standard Deviation 52.3FL (36.9-50.2) Platelet Count 197T/MM3 (130-400) Mean Platelet Volume 11.3UM3 (9.4-12.4) Immature Granulocyte % (Auto) % (0.0-0.5) Neutrophils (%) (Auto) % (33-66) Lymphocytes (%) (Auto) % (23-45) Monocytes (%) (Auto) % (0-9.0) Eosinophils (%) (Auto) % (0-4) Basophils (%) (Auto) % (0-2) Absolute Immature Granulocyte (auto T/MM3 (0.00-0.03) Absolute Neutrophils (auto) T/MM3 (1.8-7.7) Absolute Lymphocytes (auto) T/MM3 (1-4.8) Absolute Monocytes (auto) T/MM3 (0-0.8) Absolute Eosinophils (auto) T/MM3 (0-0.5) Absolute Basophils (auto) T/MM3 (0-0.2) Neutrophils % (Manual) 69.0% (33-66) Band Neutrophils % 4.0% (0-6) Lymphocytes % (Manual) 12.0% (23-45) Reactive Lymphocytes % 4.0% (0-0) Monocytes % (Manual) 7.0% (0-9.0) Eosinophils % (Manual) 1.0% (0-4) Metamyelocytes % 1.0% (0-0) Myelocytes % 2.0% (0-0) Absolute Neutrophils (Manual) 5.7T/MM3 (1.8-7.7) Band Neutrophils # 0.3T/MM3 Lymphocytes # (Manual) 1.0T/MM3 (1-4.8) Reactive Lymphocytes # 0.3T/MM3 (0-0) Monocytes # (Manual) 0.6T/MM3 (0-0.8) Eosinophils # (Manual) 0.1T/MM3 (0-0.5) Metamyelocytes # 0.1T/MM3 Myelocytes # 0.2T/MM3 Nucleated Red Blood Cells 2 Poikilocytosis 1+ Anisocytosis 1+ Ovalocytes 1+ Schistocytes 1+ Red Cell Morphology Comment Abnormal Turbidity < 20 (0-20) Sodium Level 137MEQ/L (134-144) Potassium Level 4.3MEQ/L (3.6-5) Chloride Level 95MEQ/L (98-107) Carbon Dioxide Level 33MEQ/L (22-30) Anion Gap 9MEQ/L (5-15) Blood Urea Nitrogen 21.0MG/DL (9-20) Creatinine 0.7MG/DL (0.8-1.5) Glomerular Filtration Rate Calc 111 BUN/Creatinine Ratio 30RATIO (6-26) Glucose Level 130MG/DL (75-110) Calculated Osmolality 269MOSM/KG (261-280) Calcium Level 9.0MG/DL (8.4-10.2) Magnesium Level 2.1MG/DL (1.6-2.3) Total Bilirubin 2.30MG/DL (0.20-1.30) Icterus Index < 2 (0-7) Aspartate Amino Transf (AST/SGOT) 86U/L (17-59) Alanine Aminotransferase (ALT/SGPT) 75U/L (21-72) Alkaline Phosphatase 113U/L (38-126) Total Protein 6.8G/DL (6.3-8.2) Albumin 3.4G/DL (3.5-5.0) Globulin 3.4G/DL (2.4-3.6) Albumin/Globulin Ratio 1.0RATIO (1.1-2.2) Thyroid Stimulating Hormone (TSH) 0.82MIU/L (0.47-4.68) Test 11/15/16 09:24 11/15/16 10:41 Vancomycin Level Trough 15.10UG/ML (15-20) Arterial Blood pH 7.480 (7.350-7.450) Arterial Blood Partial Pressure CO2 49MMHG (34-45) Arterial Blood pO2 at Patient Temp 93MMHG (80-100) Arterial Blood HCO3 37MEQ/L (22-26) Arterial Blood Total CO2 38.0MEQ/L (23-27) Arterial Blood Oxygen Saturation 98.0% (95.0-98.0) Arterial Blood Base Excess 11.4MMOL/L (-2.0-2.0) Oxygen Delivery Method (LAB) Bpap, % Blood Gas Oxygen Liter Flow Blood Gas Oxygen Percent Given Blood Gas Vent Rate (0-30) Blood Gas Tidal Volume ML (0-1200) Microbiology Microbiology Date/Time Source Procedure Growth Status 11/14/16 10:59 Peripheral/Iv Start Blood Culture - Preliminary NO GROWTH AFTER 24 HOURS Resulted 11/14/16 10:57 Peripheral/Iv Start Blood Culture - Preliminary NO GROWTH AFTER 24 HOURS Resulted 11/15/16 10:45 Sputum Expectorated Sputum Gram Stain Pending Resulted 11/15/16 10:45 Sputum Expectorated Sputum Sputum Culture - Preliminary CULTURE INITIATED - RESULTS PENDING Resulted 11/14/16 19:23 Sputum Expectorated Sputum Gram Stain -many gram-positive cocci impairs, many gram-positive rods' Moderate gram-positive cocci in clusters, few gram-negative rods. Few hyphae, many epithelial cells, moderate WBCs Resulted 11/14/16 19:23 Sputum Expectorated Sputum Sputum Culture - Preliminary CULTURE INITIATED - RESULTS PENDING Resulted Radiology Chest x-ray on admission: Comparison: 10/24/2015 Single upright portable chest Findings: Patient shows extensive patchy bilateral infiltrative changes with marked worsening since the prior study. Heart seems to be more prominent as well. Patient still shows previous median sternotomy sutures in place. Follow-up chest x-ray 11/15 with persistent cardiomegaly and perihilar, alveolar , and interstitial opacifications minimally changed from prior day. Motion artifact limited study. CTA of the chest on 11/14: Pulmonary arteries: Exam is limited by severe motion artifact and contrast bolus timing. Contrast bolus is diagnostic to the interlobar pulmonary arterial level. No large filling defects or saddle embolus. The segmental and subsegmental pulmonary cannot be well evaluated due to the motion artifact. Other findings: Severe diffuse airspace consolidation with groundglass opacities and air bronchograms. No gross pneumothorax or significant pleural effusions. The central airways are patent. No axillary or mediastinal adenopathy. Heart is enlarged. The upper abdomen shows metal artifact in the left upper quadrant and surgical changes. History of Present Illness Patient is a 71-year-old male who resides independently in [place], [place]. Patient reports having significant dyspnea that has worsened over the last several days. He chronically uses home oxygen at 3-4 liters, however, today was found to be hypoxic at 72% on his baseline oxygen. EMS was activated and transported patient to [facility] [place] for further evaluation and treatment. Further evaluation including laboratory studies and chest x-ray were obtained. The BBC count was found to be normal at 7.8, hemoglobin 10.5, hematocrit 32.2, platelet count 219, 70% neutrophils. Sodium is 139, potassium 3.6, BUN 23, creatinine 0.9, glucose 132, total bilirubin 3.1, LFTs are elevated with an AST of 125 and ALT 96, and alkaline phosphatase of 145. Troponin 0.060, proBNP 2050. Venous lactate was found to be critically elevated at 3.3, pro calcitonin 0.27. ABG was obtained showing a pH of 7.460, pCO2 49, pO2 47, bicarbonate 35. Chest x-ray did reveal bilateral pneumonia. Patient is significantly hypoxic and was placed on BiPAP while in the emergency room. Vital signs were reviewed, No temperature was obtained in the emergency room. Patient was tachycardic initially at 108, tachypnea, quit a respiration rate of 36, blood pressure 121/59. Given the severity of patient's illness, accompanied with his existing comorbidities. The hospitalist services were contacted and accepted patient for inpatient admission for sepsis, pneumonia, acute respiratory failure with hypoxia. Patient is seen on initial examination, and is alert and oriented. He reports multiple times during examination that he does not like the BiPAP as he feels claustrophobic. Discussed multiple times. The severity of illness and hypoxia. Patient did receive 2 doses of 0.5 milligrams of Ativan to help with his anxiety. Patient reports that for the last 3-4 weeks. He has not felt well with increased episodes of chest pain and continued worsening dyspnea. He does see a acetylene operator, Dr. Arce in [place]. It is chronically on oxygen between 3 and 4 liters. Patient states that he has been utilizing nitroglycerin often for chest pain and is using approximately one bottle per week. He does see Dr. Thibodeaux for his cardiology care. History is obtained from at the bedside. We did discuss advanced directives as well as intubation if patient's respiratory status does decline. They do wish for patient to be a full code and would once intubation if necessary. Hospital Course 11/14/16- Admit We will admit patient to inpatient status to the ICU under the care of Dr. West for severe sepsis with organ dysfunction, bilateral pneumonia, acute respiratory failure with hypoxia. Was started on IV Levaquin while in the emergency room. We will also add IV vancomycin and consult pharmacy for Vancomycin dosing. Recheck venous lactate at 1530 as per sepsis protocol. In light of acute hemoptysis, accompanied with significant hypoxia, we will obtain a CT to rule out pulmonary emboli. Will start patient on Lovenox 40 grams subcutaneous daily for prophylactic dosing. However, will change dosing If acute emboli is present. Monitor patient on cardiac telemetry and obtain serial troponins to rule out cardiac organ dysfunction or ischemia DuoNeb 4 times a day and Pulmicort twice a day. Will continue patient on BiPAP, and wean down as able. Ativan and morphine available for pain and anxiety Given findings of hyperglycemia will obtain a hemoglobin A1c to rule out underlying diabetes. Patient may have cardiac diet Will review all home medications with Dr. West prior to ordering. Will recheck CBC and CMP tomorrow morning to follow blood counts, renal function , electrolytes and LFTs. If liver enzymes continue to be elevated may need to consider further hepatic workup. May consider holding patient's Lipitor as this may influence liver function. Will discuss further plan of care and orders with Dr. West Again, patient does wish to be a full code and requests intubation if respiratory status declines during hospitalization. At time of discharge his medical care will return to primary care Dr. Barr and assistant front office manager, Dr. Thibodeaux 11/15/16 Mr. Ramírez is critically ill with acute hypoxic respiratory failure complicated by atrial fibrillation with rapid ventricular response. He has mild hypercarbia of uncertain duration but likely due to his chronic underlying lung disease. There is evidence of severe sepsis as noted above. Outpatient records indicate concerned that hypersensitivity pneumonitis potentially reactivated and steroids were prescribed earlier this week although had not yet been initiated per family report. Solu-Medrol added to regimen previously started. Discussed management options with the patient and family-they've elected to transfer to [facility] to permit involvement of the acetylene operator. Continue antibiotics with Levaquin, Zosyn, vancomycin. Sputum culture/blood cultures pending. Respiratory viral panel negative. Blood gases with persistent hypoxia/mild hypercarbia on BiPAP. Dr. Alonso consulted this morning for assistance managing acute atrial fibrillation/tachycardia arrhythmia. Diltiazem bolus given 1 with heart rate just under 100 currently. Transfer to [facility] pending, accepting physician Dr. Capo Sharma. >30 minutes spent on patient care and discharge care coordination today on the date of discharge. -- Problems: (1) Acute on chronic respiratory failure with hypoxemia Status: Acute (2) Severe sepsis with acute organ dysfunction Status: Acute Assessment & Plan: Manifestations of severe sepsis include the following- 1. Bilateral pneumonia 2. Acute respiratory failure with hypoxia requiring BiPAP 3. Tachycardia-108 4. Elevated venous lactate, 3.3 on admission 5. Organ dysfunction including elevated LFTs, hyperglycemia in the absence of diabetes (3) Bilateral pneumonia Status: Acute (4) Atrial fibrillation with RVR Status: Acute (5) Coronary artery disease Status: Chronic (6) Hypertension Status: Chronic (7) On home O2 Status: Chronic Assessment & Plan: 2-3 Liters (8) Dyslipidemia Status: Chronic (9) Chronic back pain Status: Chronic (10) GERD (gastroesophageal reflux disease) Status: Chronic (11) History of CVA (cerebrovascular accident) Status: Resolved (12) Hypersensitivity pneumonitis Status: Chronic (13) Obstructive sleep apnea Status: Chronic Assessment & Plan: Outpatient evaluation underway (14) Anemia Status: Chronic (15) Abnormal liver enzymes Status: Acute (16) Elevated troponin Status: Acute Assessment & Plan: Probable type II MO Code Status Full Code Home Meds Active Scripts Diltiazem HCl in 0.9% NaCl (Diltiazem HCl-Ns 125 mg/125 ml) 125 Mg/125 Ml Plast..bag, 5 MG IV hr for afib for 1 Day Prov:LIZA ALEMAN MD 11/15/16 Guaifenesin/Dextromethorphan (Mucinex Dm ER 600-30 mg Tablet) 1 Each Tab.er.12h , 1 TAB PO Q12HR Y for COUGH for 10 Days, #20 TAB Prov:LIZA ALEMAN MD 11/15/16 Budesonide (Pulmicort) 0.5 Mg/2 Ml Inha, 0.5 MG AEROSOL BID for 10 Days, INHALER Prov:LIZA ALEMAN MD 11/15/16 Morphine Sulfate (Morphine Sulfate) 2 Mg/1 Ml Syringe, 2 MG IV Q2H Y for AGITATION/AIR HUNGER/PAIN for 10 Days, SYRINGE Prov:LIZA ALEMAN MD 11/15/16 Lorazepam (Ativan) 2 Mg/1 Ml Vial, 1 MG IV Q4H Y for AIR HUNGER/ANXIETY for 10 Days, VIAL Prov:LIZA ALEMAN MD 11/15/16 Enoxaparin Sodium (Lovenox) 150 Mg/Ml Inj, 130 MG SQ BID for 10 Days Prov:LIZA ALEMAN MD 11/15/16 Ipratropium/Albuterol Sulfate (Iprat-Albut 0.5-3(2.5) mg/3 ml) 3 Ml Ampul.neb, 3 ML AEROSOL QID for 10 Days Prov:LIZA ALEMAN MD 11/15/16 Levofloxacin (Levaquin) 750 Mg Tablet, 750 MG PO DAILY for pna for 7 Days Prov:LIZA ALEMAN MD 11/15/16 Methylprednisolone Sod Succ/Pf (Solu-Medrol 125 mg Vial) 125 Mg/2 Ml Vial, 125 MG IV Q6H for resp failure/pneumonitis for 7 Days Prov:LIZA ALEMAN MD 11/15/16 Vancomycin/0.9 % Sod Chloride (Vanco 1.25 gm/250 ml-0.9% NaCl) 1.25 Gm/250 Ml Plast..bag, 1.25 G IV Q8H for pna for 7 Days Prov:LIZA ALEMAN MD 11/15/16 Zpxziahmkpfm-Vwci-Yfyflcka,Iso (Zosyn 3.375 gm/50 ml Galaxy) 3.375 Gm/50 Ml Froz.piggy, 3.375 G IV Q6H for pna for 7 Days Prov:LIZA ALEMAN MD 11/15/16 Reported Medications Losartan Potassium (Losartan Potassium) 50 Mg Tablet, 50 MG PO DAILY 11/14/16 Tramadol HCl (Tramadol HCl) 50 Mg Tablet, 50-100 MG PO QID Y for PAIN 11/14/16 Isosorbide Mononitrate (Isosorbide Mononitrate ER) 60 Mg Tab.er.24h, 60 MG PO DAILY 11/14/16 Aspirin (Aspirin) 81 Mg Tab.chew, 81 MG PO DAILY 02/07/15 Omeprazole (Omeprazole) 40 Mg Capsule.dr, 40 MG PO DAILY 02/07/15 Metoprolol Succinate (Metoprolol Succinate) 50 Mg Tab.er.24h, 25 MG PO BID 02/07/15 Nitroglycerin (Nitrostat) 0.4 Mg Tablet, 0.4 MG PO PRN 02/07/15 Clonidine HCl (Clonidine HCl) 0.3 Mg Tablet, 0.3 MG PO BID 02/07/15 Discontinued Reported Medications Atorvastatin Calcium (Atorvastatin Calcium) 40 Mg Tablet, 40 MG PO HS 11/14/16 Potassium Chloride (Potassium Chloride) 20 Meq Tab.er.prt, 20 MEQ PO BID 11/14/16 Bumetanide (Bumetanide) 1 Mg Tablet, 1 MG PO DAILY 12/20/15 Minoxidil (Minoxidil) 10 Mg Tablet, 5 MG PO DAILY 02/07/15 Face to Face Encounter Severity of illness discussed with patient and patient's family. Options for transfer versus continued care in the intensive care unit [facility] [place] discussed and ultimately opted to transfer to higher level of care with acetylene operator support. Discharge Disposition [facility] Copies To 1: ANDRY THIBODEAUX MD; CHRIS NICHOLAS MD Copies To 2: MARKOS ALONSO MD Documentation Requirements Documenting Diagnosis Pneumonia Anemia Anemia Acuity: Chronic Pneumonia Significance to pneumonia: Unable to Determine Aspiration Pneumonia: Unable to determine BMI Low or High Assoc. dx for low or high BMI: Morbid obesity >40 LIZA ALEMAN MD Nov 15, 2016 21:13
== END 2016-11-15 19:35 | disposition short-term general hospital (02) | DRG 871 ==
LOC: ED 10:30 → EDHOLD 12:15 → CCU 12:58
PROVIDERS: ADMIT Internal Medicine; ATTEND Internal Medicine
PROC: 5A09457 Assistance with Respiratory Ventilation, 24-96 Consecutive Hours, Continuous Positive Airway Pressure (ICD-10-PCS; principal; 2016-11-14)
DX: A41.9 Sepsis, unspecified organism (principal); J18.9 Pneumonia, unspecified organism; J96.21 Acute and chronic respiratory failure with hypoxia; Z68.41 Body mass index [BMI] 40.0-44.9, adult; J67.9 Hypersensitivity pneumonitis due to unspecified organic dust; R65.20 Severe sepsis without septic shock; I25.10 Atherosclerotic heart disease of native coronary artery without angina pectoris; I10 Essential (primary) hypertension; D64.9 Anemia, unspecified; I48.91 Unspecified atrial fibrillation; E78.5 Hyperlipidemia, unspecified; G47.33 Obstructive sleep apnea (adult) (pediatric); I27.2 Other secondary pulmonary hypertension; G89.29 Other chronic pain; M54.9 Dorsalgia, unspecified; K21.9 Gastro-esophageal reflux disease without esophagitis; E66.9 Obesity, unspecified; I25.2 Old myocardial infarction; Z79.82 Long term (current) use of aspirin; Z99.81 Dependence on supplemental oxygen; Z95.5 Presence of coronary angioplasty implant and graft; Z95.1 Presence of aortocoronary bypass graft; Z86.73 Personal history of transient ischemic attack (TIA), and cerebral infarction without residual deficits; Z87.891 Personal history of nicotine dependence
CPT/HCPCS: 36415; 36600; 80053; 80202; 81001; 82803; 83036; 83605; 83735; 83880; 84145; 84443; 84484; 85025; 87040; 87070; 87205; 87486; 87581; 87633; 87798; 93005; 93306; 94003; 94640; 96365; 96375; 96376